=== PATIENT | female | born 1945 | race African-American/Black ===

== ENCOUNTER 2019-06-10 08:43 | Emergency (ER) | payer MEDICARE, MEDICAID ==
--- NOTE | 2019-06-10 09:29 | RAD ---
Exam:3 views right shoulder HISTORY: Pain. COMPARISON: None FINDINGS: There appears be irregularity involving the right humeral neck. Callus formation suggests a chronic process. Definite acute fracture is not appreciated. Glenohumeral joint space appears to be preserved. Scapula and ribs are unremarkable. The common clavicular joint spaces preserved. IMPRESSION: 1. Presumed chronic changes with remote injury to the right humeral neck. No obvious acute fracture. If there is concern, consider CT. Glenohumeral joint space appears to be preserved.
== END 2019-06-10 10:20 | disposition home or self-care (01) ==
LOC: ERS 08:43
DX: M75.101 Unspecified rotator cuff tear or rupture of right shoulder, not specified as traumatic (principal); E78.5 Hyperlipidemia, unspecified; I11.0 Hypertensive heart disease with heart failure; I50.9 Heart failure, unspecified; I25.2 Old myocardial infarction; Z79.82 Long term (current) use of aspirin; Z79.51 Long term (current) use of inhaled steroids; Z79.899 Other long term (current) drug therapy; Z79.891 Long term (current) use of opiate analgesic

== ENCOUNTER 2019-07-22 08:09 | Inpatient (IN) | payer MEDICARE, MEDICAID ==
--- NOTE | 2019-07-22 08:47 | RAD ---
XR Chest 1 View Portable HISTORY: Chest pain COMPARISON: 05/27/2014 FINDINGS: The heart is enlarged. There is mild prominence of the pulmonary vascularity. Mild patchy i nfiltrates are seen in the lung bases. No pneumothoraces or large effusions are identified.
[2019-07-22 08:50] LABS: #Eosinphils 0.2 thou/uL (0.0-0.7); #Lymphocytes 1.4 thou/uL (1.20-3.40); #Monocytes 0.4 thou/uL (0.11-0.59); #Neutrophils 2.6 thou/uL (1.40-6.50); %Basophils 0.9 % (0.0-1.0); %Eosinophils 5.1 % (0.0-10.0); %Lymphocytes 29.1 % (21.0-51.0); %Monocytes 9.4 % (0.0-10.0); %Neutrophils 55.5 % (42.0-75.0); Hemoglobin 9.2 g/dL (12.0-16.0); Mean Corpuscular HGB CONC 33.2 g/dL (32.0-36.0); Mean Corpuscular Hemoglobin 27.4 pg (27.0-31.0); Mean Corpuscular Volume 82.3 fL (78.0-98.0); Mean Platelet Volume 7.9 fL (7.4-10.4); Platelet Count 196 thou/uL (130-400); RBC Distribution Width 18.8 % (11.5-14.5); Red Blood Cell (RBC) Count 3.37 mill/uL (4.20-5.40); White Blood Cell (WBC) Count 4.7 thou/uL (4.8-10.8)
[2019-07-22] MEDS ORDERED: Famotidine/PF 20 mg/2ml Vial ONE (08:54)
[2019-07-22] MEDS ORDERED: diphenhydrAMINE 50 MG/ML VIAL ONE (08:54)
[2019-07-22] MEDS ORDERED: methylPREDNISolone Sod Succ 40 MG VIAL ONE (08:54)
[2019-07-22 09:15] LABS: ALT (SGPT) 30 U/L (8-55); AST (SGOT) 30 U/L (5-34); Albumin 3.1 g/dL (3.4-4.8); Alkaline Phosphatase 89 U/L (40-110); Anion Gap 15 mmol/L (10-20); BUN (Urea Nitrogen) 29 mg/dL (9.8-20.1); Bilirubin, Total 0.4 mg/dL (0.2-1.2); Calc. Creatinine Clearance 0 mL/min (70-130); Calcium 7.9 mg/dL (7.8-10.44); Carbon Dioxide 28 mmol/L (23-31); Chloride 99 mmol/L (98-107); Estimated GFR-MDRD 12; Globulin 2.7 g/dL (2.4-3.5); Glucose 127 mg/dL (83-110); Lipase 47 U/L (8-78); Magnesium 1.8 mg/dL (1.6-2.6); Potassium 3.9 mmol/L (3.5-5.1); Protein, Total 5.8 g/dL (6.0-8.3); Sodium 138 mmol/L (136-145)
[2019-07-22] MEDS ORDERED: Iopamidol 370 76% 100 ML VIAL ONE (09:27)
[2019-07-22] MEDS ORDERED: Furosemide 40 MG/4 ML VIAL ONE (11:05)
--- NOTE | 2019-07-22 11:43 | CT ---
CTA CHEST WITH CONTRAST: Multiple axial tomograms were obtained following a pulmonary angio protocol with multiplanar reconstr uction and 3D postprocessing. INDICATION: History of asthma. Shortness of breath. FINDINGS: Cardiomegaly with mild vascular congestion. There are small bilateral pleural effusions with bibasil ar infiltrates and/or atelectasis, more pronounced on the left. The pulmonary arteries are well opacified. There is no evidence of pulmonary embolus. Thoracic aort a is unremarkable with no evidence of dissection. Nonspecific mediastinal and hilar adenopathy. Small hepatic cyst on images through the upper abdomen. Nonspecific axillary adenopathy. Review of the bones shows diffuse osteopenia. There is severe compression deformity involving the L1 vertebra with retropulsion into the spinal canal producing what appears to be central canal stenosis at the T12-L1 disk level. This compression deformity was present on a CT dating back to 2012 and do es not appear significantly changed when comparison is made to the CT of 12/01/2012. IMPRESSION: 1. No evidence of pulmonary embolus. 2. Cardiomegaly with mild vascular congestion. 3. Small bilateral effusions. Bibasilar atelectasis and/or infiltrates more prominent in the left l teto base. 4. Mediastinal and hilar adenopathy. 5. Nonspecific axillary adenopathy. 6. Severe compression deformity with retropulsion of the L1 vertebra appears stable. POS: [facility]
[2019-07-22] MEDS ORDERED: Aspirin 325 MG TAB ONE (11:54)
[2019-07-22] MEDS ORDERED: Mometasone 100 MCG/Formoterol 5 MCG 120 PUFF INHALER INH PRN (12:03)
[2019-07-22] MEDS ORDERED: Acetaminophen 650 MG Suppository PR PRN (12:07)
[2019-07-22] MEDS ORDERED: Calcium Carbonate 500 MG ChewTAB PO PRN (12:07)
[2019-07-22] MEDS ORDERED: HYDROcodone/Acetaminophen 5/325 mg Tablet PO PRN (12:07)
[2019-07-22] MEDS ORDERED: Bisacodyl 10 MG SUPP PR PRN (12:07)
[2019-07-22] MEDS ORDERED: Benzonatate 100 MG CAP PO PRN (12:09)
[2019-07-22] MEDS ORDERED: diphenhydrAMINE 25 MG CAP PO PRN (12:09)
[2019-07-22] MEDS ORDERED: Melatonin 3 MG TAB PO PRN (12:09)
[2019-07-22] MEDS ORDERED: Labetalol HCl 100 MG/20 ML VIAL SLOW IVP PRN (12:09)
[2019-07-22] MEDS ORDERED: Docusate 100 MG CAP PO PRN (12:09)
[2019-07-22] MEDS ORDERED: Nitroglycerin 0.4 MG TAB (25 Tab Bottle) SL PRN (12:17)
[2019-07-22] MEDS ORDERED: Morphine 2 MG/ML SYRINGE SLOW IVP PRN (12:17)
[2019-07-22 16:05] VITALS: BMI 24.5
[2019-07-22 16:38] LABS: Troponin I 0.023 ng/mL (< 0.028)
[2019-07-22] MEDS: hydrALAZINE 25 MG TAB PO SCH ×2 (16:51→20:23)
[2019-07-22] MEDS: Heparin 5,000 UNITS/ML VIAL SC SCH ×2 (16:52→20:24)
--- NOTE | 2019-07-22 18:04 | PDOC.HHP ---
Hospitalist HPI - History of Present Illness Chest pain and shortness of breath History of Present Illness: 74-year-old female with past medical history of end-stage renal disease on hemodialysis, cardiomyopathy with ejection fraction 20-25%, asthma, GERD, hypertension, Hep C, CVA and history of feeding tube in 2012 presents with chest pain and shortness of breath. Patient states that today she was having chest pain which was worse with deep inspiration. Patient denies any diaphoresis , no palpitations. Subjective radiation of the pain to the shoulder. At this current time she does not have any chest pain or shortness of breath. She is breathing comfortably on room air. CT angiography of the chest was negative for pulmonary embolism. Patient is end-stage renal disease on hemodialysis and she is normally a Monday, , Monday schedule and she had hemodialysis this Monday. She states that on Saturdays session of HD she "had no fluid removed". Patient denies prior history of cardiac stents, though she states that "she might've had a mild heart attack" in the past. Patient's prior echocardiogram demonstrated ejection fraction of 20 to 25%, she does have pulmonary edema on chest imaging and elevated BNP level. With chest pain and shortness of breath with this patients history, cardiology was consulted for further recommendations. Nephrology consulted for dialysis management. Will repeat echocardiogram.Patient admitted to the medical unit with telemetry for close management. Hospitalist ROS - Review of Systems All other systems reviewed; all pertinent +/- noted in HPI/Subj - Medication Medications: Active Medications Generic Name Dose Route Start Last Admin Trade Name Freq PRN Reason Stop Dose Admin Heparin Sodium (Porcine) 5,000 units 07/22/19 15:00 07/22/19 16:52 Heparin SC 5,000 units TID CATHIE Administration Hydralazine HCl 25 mg 07/22/19 15:00 07/22/19 16:51 Apresoline PO 25 mg TID CATHIE Administration Hospitalist History - Past Medical History Source: patient, old records Cardiac: reports: CAD, CHF, HTN, Hyperlipidemia Pulmonary: reports: asthma, hypertension [facility]: reports: CVA - Past Surgical History Past Surgical History: reports: Hysterectomy, Other (PEG in 2013 for dysphagia after CVA since removed. Cardiac cath. HD access.) - Family History Family History: reports: hypertension - Social History Smoking Status: Never smoker Alcohol: reports: None Drugs: reports: none Living Situation: With Family Domestic Violence: Negative Activity level: independent ambulation - Exam General Appearance: NAD, awake alert Eye: PERRL ENT: normocephalic atraumatic, moist mucosa Neck: supple, symmetric, no lymphadenopathy Heart: no murmur, no gallops, no rubs Respiratory: no wheezes, no ronchi, normal chest expansion, no tachypnea, rales (Faint) Gastrointestinal: soft, non-tender, no guarding, no rigidity Extremities: no edema Extremities - other findings: Compression stalkings in place Skin: no rashes Neurological: cranial nerve grossly intact, no focal deficits Musculoskeletal: generalized weakness Psychiatric: normal affect, normal behavior, oriented to person, oriented to place Hospitalist Results - Labs Result Diagrams: 07/22/19 08:34 07/22/19 08:34 Lab results: WBC 4.7 thou/uL (4.8-10.8) L 07/22/19 08:34 Hgb 9.2 g/dL (12.0-16.0) L 07/22/19 08:34 Hct 27.8 % (36.0-47.0) L 07/22/19 08:34 MCV 82.3 fL (78.0-98.0) 07/22/19 08:34 Plt Count 196 thou/uL (130-400) 07/22/19 08:34 Neutrophils % 55.5 % (42.0-75.0) 07/22/19 08:34 Sodium 138 mmol/L (136-145) 07/22/19 08:34 Potassium 3.9 mmol/L (3.5-5.1) 07/22/19 08:34 Chloride 99 mmol/L (98-107) 07/22/19 08:34 Carbon Dioxide 28 mmol/L (23-31) 07/22/19 08:34 BUN 29 mg/dL (9.8-20.1) H 07/22/19 08:34 Creatinine 4.22 mg/dL (0.6-1.1) H 07/22/19 08:34 Glucose 127 mg/dL (83-110) H 07/22/19 08:34 Calcium 7.9 mg/dL (7.8-10.44) 07/22/19 08:34 Total Bilirubin 0.4 mg/dL (0.2-1.2) 07/22/19 08:34 AST 30 U/L (5-34) 07/22/19 08:34 ALT 30 U/L (8-55) 07/22/19 08:34 Alkaline Phosphatase 89 U/L (40-110) 07/22/19 08:34 Troponin I 0.023 ng/mL (< 0.028) 07/22/19 16:09 B-Natriuretic Peptide 1018.4 pg/mL (0-100) H 07/22/19 08:34 Serum Total Protein 5.8 g/dL (6.0-8.3) L 07/22/19 08:34 Albumin 3.1 g/dL (3.4-4.8) L 07/22/19 08:34 Lipase 47 U/L (8-78) 07/22/19 08:34 - Radiology Interpretation CT scan - chest Status: image reviewed by nd Hospitalist H&P A/P - Problem (1) Shortness of breath Code(s): R06.02 - SHORTNESS OF BREATH Status: Acute (2) Chest pain Code(s): R07.9 - CHEST PAIN, UNSPECIFIED Status: Acute (3) HTN (hypertension) Code(s): I10 - ESSENTIAL (PRIMARY) HYPERTENSION Status: Acute (4) Pulmonary edema Code(s): J81.1 - CHRONIC PULMONARY EDEMA Status: Acute (5) CHF (congestive heart failure) Code(s): I50.9 - HEART FAILURE, UNSPECIFIED Status: Acute (6) ESRD (end stage renal disease) Code(s): N18.6 - END STAGE RENAL DISEASE Status: Acute (7) CVA (cerebral vascular accident) Code(s): I63.9 - CEREBRAL INFARCTION, UNSPECIFIED Status: Acute (8) Asthma Code(s): J45.909 - UNSPECIFIED ASTHMA, UNCOMPLICATED Status: Acute (9) HLD (hyperlipidemia) Code(s): E78.5 - HYPERLIPIDEMIA, UNSPECIFIED Status: Acute (10) Hepatitis C Code(s): B19.20 - UNSPECIFIED VIRAL HEPATITIS C WITHOUT HEPATIC COMA Status: Acute (11) Acute on chronic systolic CHF (congestive heart failure) Code(s): I50.23 - ACUTE ON CHRONIC SYSTOLIC (CONGESTIVE) HEART FAILURE Status : Acute - Plan Plan: Plan: Admit to medical unit with telemetry cardiology consultation, recommendations appreciated nephrology consultation, recommendations appreciated morphine, oxygen, nitrates, aspirin Continuous telemetry to monitor for arrhythmia trend cardiac enzymes repeat echocardiogram may need additional sessions of hemodialysis to remove excess fluid, appears volume overload is at this time received Lasix in the emergency department per emergency department physician, reportedly still makes some urine with prior history of congestive heart failure with ejection fraction of 20 to 25% on our last records consider stress test versus cardiac catheterization if chest pain is persistent blood pressure control blood sugar control continue other home medications as able G.I. prophylaxis DVT prophylaxis
--- NOTE | 2019-07-22 18:24 | CON ---
DATE OF CONSULTATION: PRIMARY CARE DOCTOR: Dr. Ivey. PATIENT'S PRIMARY WATCH GUARD GATE: Dr. Edwards. PATIENT'S PRIMARY ARCHITECTURAL TECHNOLOGIST: Dr. Poole. REASON FOR CARDIOLOGY CONSULT: Shortness of breath and chest pain. HISTORY OF PRESENT ILLNESS: Ms. Harrell is a very pleasant 74-year-old female with a significant history of end-stage renal disease with hemodialysis on Tuesdays, , Saturdays; hypertension; hyperlipidemia; congestive heart failure; anemia. The patient presents to the emergency department at [facility] on june 29 for shortness of breath and the patient cannot remember what kind of procedure she has over there. The patient presents to the emergency department at [facility] in the [place], [place] today for pain in the upper epigastric area over the night last night. The pain increased with movement and deep breath. Also, the when patient had the pain in the epigastric area, the patient is also having shortness of breath. However, the patient denied dizziness, lightheadedness, or any other cardiac complaints. The patient had echocardiograms done in October 2016 with EF 25% to 30%, severe mitral valve regurgitation, and moderate pulmonary insufficiency, and moderate tricuspid regurgitation. Since then, she has not followed up with Dr. Guadalupe since this patient was doing well per patient. The patient had a cardiac catheterization in October 2012 with 20% stenosis in the proximal right coronary arteries with EF of 15% to 20%. MEDICAL HISTORY: Hypertension; end-stage renal disease with hemodialysis on Monday, , and Monday; congestive heart failure; nonischemic cardiomyopathy; anemia; hypertension; hyperlipidemia; and asthma. The patient has a history of hepatitis C, CVA in 2012, ulcerative colitis, history of ventricular fibrillation, history of C diff colitis in 2012. SURGICAL HISTORY: Hysterectomy in 1974, PEG tube placement in 2012 which was removed, cardiac catheterization in 2012 with 20% in LAD and RCA; humerus fracture; hemodialysis catheter placement on the right upper extremities; status post colonoscopy and upper endoscopy in 2012 and 2013. FAMILY HISTORY: The patient's sister had cardiac stent and she had diabetes. The patient does not remember the patient's parents medical history since they have when the patient was young. SOCIAL HISTORY: She is a . She has five children who are living well. She denies EtOH, tobacco, or illicit drug abuse. She walks 1.5 mile every day with her sister. She never missed hemodialysis schedule. ALLERGIES: SHE IS ALLERGIC TO SHELLFISH, IODINE, ONDANSETRON. REVIEW OF SYSTEMS: 12-point review of systems negative unless otherwise mentioned in the HPI. PHYSICAL EXAMINATION: VITAL SIGNS: Blood pressure 170/79, temperature 97.2, pulse is 79, respiratory rate 18, O2 saturation 96% on room air. GENERAL: The patient is alert and oriented x4, not in any acute distress except pain at the epigastric area with deep breath and movement. HEAD: Normocephalic, atraumatic. EYES: Extraocular muscle movement intact. She wears glasses for reading. ENT AND MOUTH: Oral and nasal mucosa moist without lesion. NECK: Supple. Normal range of motion. No JVD. No bruit or thrill at the carotid arteries area. RESPIRATORY: Clear to auscultate bilaterally. No wheezing, rales, or rhonchi noted, but diminished at the bases. CARDIOVASCULAR: Regular rate and rhythm. Normal S1, S2. There is no S3 or S4. No significant murmur, hives, or thrills noted. EXTREMITIES: 2+ pulses in bilateral upper and lower extremities. No edema in the lower extremities. She wears compression stocking SKIN: Warm and dry. No lesion, rash, or erythema noted. MUSCULOSKELETAL: The patient able to move all extremities. The patient denied claudication in the lower extremities. NEUROLOGIC: The patient is alert and oriented x4. Nonfocal. PSYCHIATRIC: The patient's mood is appropriate. LABORATORY DATA: WBC 4.7, hemoglobin 9.2, hematocrit platelets 196. Sodium 138, potassium 3.9, BUN 29, creatinine 4.22, glucose 127, magnesium 1.8. AST 30, ALT 30. Troponin is negative x2 and 0.023. BNP is 1018. ASSESSMENT AND PLAN: 1. Chest pain. The patient is complaining of pain in the upper epigastric area which worsened with deep breath and movement, which radiates under the right breast since like the patient's symptoms coming from musculoskeletal etiologies. She has been taking the Protonix for The patient might need another EGD for further GI evaluation. The patient's troponin level is negative and the patient's EKG does not show any ST-segment change or T-wave inversion. We would like to continue to monitor on the telemetry. 2. Respiratory distress, possibly this is coming from acute on chronic systolic heart failure, which was showing in 12/2012. The patient had another echocardiogram today and the result is pending at this moment. She is on carvedilol 25 mg twice a day. She is on hemodialysis. She is not on CONNIE inhibitor or ARB at this moment due to chronic kidney disease. 3. Hypertension. The first blood pressure in this floor is elevated. I would like to wait to adjust medications until she has another blood pressure reading. At this moment, she is on the beta kenyon, carvedilol 25 mg twice a day, hydralazine 25 mg 3 times a day. 4. Hyperlipidemia. She is on Lipitor 20 mg once a day. 5. History of coronary artery disease. A cardiac catheterization in 2012 showed 20% stenosis in LAD and RCA. The patient's cardiac enzymes were negative. The patient's EKGs have been normal. She is on the beta kenyon, aspirin, Lipitor. 6. History of stroke. 7. History of hepatitis C. 8. Anemia, possibly secondary to chronic kidney disease. The patient's hemoglobin level is stable since 2012. 9. Mild edema. She complained of edema in the lower extremities after she walks long distance which improves next day or after raising her bilateral lower extremities. We would like to request the patient to continue to wear RIGO hose at daytime and off at night. Thank you very much for Cardiology Service to participate in the care of this patient. We will follow along the patient's care team and make further recommendations as appropriate. Job ID: [id number]
[2019-07-22 19:32] LABS: Troponin I 0.014 ng/mL (< 0.028)
[2019-07-22] MEDS: Famotidine 20 MG TAB PO SCH (20:23)
[2019-07-22] MEDS: Atorvastatin Calcium 20 MG TAB PO SCH (20:23)
[2019-07-22] MEDS: Carvedilol 25 MG TAB PO SCH (20:24)
[2019-07-23 04:56] LABS: Anion Gap 16 mmol/L (10-20); BUN (Urea Nitrogen) 45 mg/dL (9.8-20.1); Calc. Creatinine Clearance 9 mL/min (70-130); Calcium 7.7 mg/dL (7.8-10.44); Carbon Dioxide 25 mmol/L (23-31); Chloride 100 mmol/L (98-107); Estimated GFR-MDRD 10; Glucose 119 mg/dL (83-110); Potassium 4.4 mmol/L (3.5-5.1); Sodium 137 mmol/L (136-145)
--- NOTE | 2019-07-23 07:14 | CON ---
DATE OF CONSULTATION: 07/22/2019 ADDENDUM: Please refer the notes already dictated by my nurse practitioner, Bertha Herron. Ms. Harrell is a very pleasant 74-year-old female, who was seen by Dr. Collins davis in 2012, I believe again in 2014. At that time, she was seen in 2012, she underwent a cardiac catheterization, which showed severe decrease in left ventricular systolic function, ejection fraction estimated at 15% to 20%. She had mild coronary artery disease with 20% left anterior descending artery mid stenosis. The right coronary artery had a 20% proximal stenosis. The left circumflex was free of any significant flow limiting disease. Apparently, she has not been followed up on a routine basis. She did perhaps see somebody at [facility] on one occasion, her primary physician was a [facility] physician in the past. She now has, I believe changed physicians again, and apparently this lady had been doing relatively well despite her cardiomyopathy, she was walking over a mile or 2 a day, and then sometime in mid May, she noted she became somewhat short of breath and was having problems breathing with pain, which she describes as being a hard pain up underneath the right breast area, radiating to the back to the shoulder area with deep inspiration. She has had no recent illnesses that she is aware of and no significant coughing. She also was seen here in the hospital about a month ago and was released saying that she had some shoulder discomfort, but she does not believe that was her diagnosis at that time and she did not feel comfortable and she then was seen at [facility], was told that she had pleurisy and was discharged on medication. She said the medications did help for a while, but then after she was given an injection, which most likely was steroids and then the pain returned. Her symptoms do sound to be certainly pleuritic in nature, when she takes a deep inspiration, she has pain, and she also says that she does have some shortness of breath now, but as of about a week ago, she was still able to walk about a mile without any significant problems. She does have a history also of hypertension and chronic renal insufficiency as well as hyperlipidemia and history of cardiomyopathy. She does not have an AICD implant. She has a repeat echocardiogram scheduled. This is still pending. We will look at the results of that before making further recommendations. Most likely, she will need to undergo at least consideration for an AICD. PHYSICAL EXAMINATION: GENERAL: Reveals an elderly female, who is in no acute distress at this time. VITAL SIGNS: Her blood pressure is elevated at 173/86, her heart rate is 79 and regular. She has a sinus rhythm. She is afebrile. Respiratory rate is about 18. HEENT: Showed the head to be normocephalic and atraumatic. Carotid pulses are present. I did not hear any bruits CHEST: Actually clear to auscultation. She has some minimal right basilar rales, otherwise was clear. CARDIOVASCULAR: Revealed a regular rate and rhythm. I did not hear any significant murmurs, heaves, thrills, bruits, or rubs. She did have a soft systolic murmur at the apex, most likely due to some mild mitral valve regurgitation. ABDOMEN: Soft and nontender. Positive bowel sounds are present. EXTREMITIES: Showed no clubbing or cyanosis. She had minimal ankle edema. Pedal pulses are difficult to palpate. NEUROLOGIC: She appears to be grossly intact. LABORATORY DATA: Shows a hemoglobin of 9.2, WBC was 4.7, and platelet count was 196,000. Sodium was 138 with potassium of 3.9, BUN was 29 with a creatinine of 4.22, and blood sugar was 127. Her BNP was elevated at 1018. Her troponin-I is negative for myocardial infarction. Her EKG shows a sinus rhythm with no acute changes. She did have decreased R-wave progression in V1 and V2, but no significant ST-segment elevation was noted and no other significant abnormalities. She has some nonspecific flattening of the T-waves, but otherwise nonsignificant EKG. IMPRESSION: 1. Elderly female with chest pain, which sounds to be pleuritic in nature, but she does have a history of cardiomyopathy with elevated BNP. We will await the results of the echocardiogram prior to making further recommendations. 2. History of cardiomyopathy. Again, we will await the results of the echocardiogram. Her medications prior to admission included Coreg and aspirin, as far as cardiovascular medicines are concerned, atorvastatin. She was also taking amlodipine. She was not on CONNIE inhibitor, but she does have chronic renal insufficiency. 3. Chronic kidney disease. I am uncertain as to who her ball assembler is, but if she does not have one, she should be referred for ball assembler, but again depending on the results of the echocardiogram, if she has a low cardiac output, this may be the reason for her chronic kidney disease with low cardiac output. At this time, we will evaluate the echocardiogram. Further recommendations will be by Dr. Guadalupe when he visits with the patient tomorrow. The patient has requested that she follow up with him and we will discuss this case with Dr. Guadalupe. At this time, she appears to be stable from a cardiac standpoint except she does have a cardiomyopathy and has somewhat atypical chest pain, which does appear to be pleuritic in nature, as she does have pain on inspiration. Job ID: [id number]
--- NOTE | 2019-07-23 09:03 | RAD ---
CHEST 1 VIEW: DATE: 07/23/2019. TIME: 8:31 AM. HISTORY: Shortness of breath. COMPARISON: Previous day. FINDINGS/IMPRESSION: The heart is enlarged. The aorta is tortuous. There are bilateral small pleural effusions with huong cent infiltrate/atelectatic changes. No pneumothoraces are seen. There is mild prominence of the pu lmonary vascularity. POS: [facility]
[2019-07-23] MEDS: Heparin 5,000 UNITS/ML VIAL SC SCH ×3 (10:18→20:42)
[2019-07-23] MEDS: Aspirin 81 mg Enteric Coated Tablet PO SCH (10:18)
[2019-07-23] MEDS: hydrALAZINE 25 MG TAB PO SCH ×3 (10:19→20:41)
[2019-07-23] MEDS: Carvedilol 25 MG TAB PO SCH ×2 (10:19→20:41)
--- NOTE | 2019-07-23 13:07 | PDOC.HOSPP ---
- Subjective Subjective: Seen and examined this a.m. She tells me she is feeling worse. More short of breath. She is on low-flow nasal cannula and saturating well. Chest x-ray was ordered by myself and interpreted with pulmonary vascular congestion. Small pleural effusion's. She appears volume overload it, nephrology is on the case for hemodialysis. Time was given for questions, all answered in detail. - Objective Vital Signs & Weight: Vital Signs (12 hours) Temp Pulse Resp BP Pulse Ox 07/23/19 11:18 97.5 F L 71 20 123/61 97 07/23/19 10:41 82 20 99 07/23/19 10:19 85 07/23/19 07:53 98.4 F 88 22 H 167/78 H 99 07/23/19 07:45 99 07/23/19 03:46 98.7 F 82 16 157/74 H 99 Weight Weight 128 lb 11.999 oz I&O: 07/22/19 07/23/19 07/24/19 06:59 06:59 06:59 Intake Total 480 Output Total 200 Balance 280 Result Diagrams: 07/22/19 08:34 07/23/19 04:18 Radiology Reviewed by me: Yes Hospitalist ROS - Review of Systems All other systems reviewed; all pertinent +/- noted in HPI/Subj - Medication Medications: Active Medications Generic Name Dose Route Start Last Admin Trade Name Freq PRN Reason Stop Dose Admin Albuterol/Ipratropium 3 ml 07/22/19 12:09 07/23/19 10:41 Duoneb NEB 3 ml [id number] PRN Administration SOB &/or Wheezing Aspirin 81 mg 07/23/19 09:00 07/23/19 10:18 Ecotrin PO 81 mg DAILY CATHIE Administration Atorvastatin Calcium 20 mg 07/22/19 21:00 07/22/19 20:23 Lipitor PO 20 mg HS CATHIE Administration Carvedilol 25 mg 07/22/19 21:00 07/23/19 10:19 Coreg PO 25 mg BID CATHIE Administration Famotidine 20 mg 07/22/19 21:00 07/22/19 20:23 Pepcid PO 20 mg QPM CATHIE Administration Heparin Sodium (Porcine) 5,000 units 07/22/19 15:00 07/23/19 10:18 Heparin SC 5,000 units TID CATHIE Administration Hydralazine HCl 25 mg 07/22/19 15:00 07/23/19 10:19 Apresoline PO 25 mg TID CATHIE Administration Sodium Chloride 10 ml 07/22/19 21:00 07/23/19 10:19 Flush - Normal Saline IVF 10 ml Q12HR CATHIE Administration - Exam General Appearance: NAD, awake alert Eye: anicteric sclera ENT: normocephalic atraumatic, moist mucosa Neck: supple, symmetric, no lymphadenopathy Heart: no murmur, no gallops, no rubs Respiratory: no wheezes, no ronchi, normal chest expansion, no tachypnea, rales Gastrointestinal: soft, non-tender, no guarding, no rigidity Extremities: 1+ LE edema (wears compression stalkings in the day, currently off) Skin: no lesions, no rashes Neurological: cranial nerve grossly intact, no focal deficits Musculoskeletal: generalized weakness Psychiatric: normal behavior, A&O x 3 Hosp A/P (1) Shortness of breath Code(s): R06.02 - SHORTNESS OF BREATH Status: Acute (2) Chest pain Code(s): R07.9 - CHEST PAIN, UNSPECIFIED Status: Acute (3) HTN (hypertension) Code(s): I10 - ESSENTIAL (PRIMARY) HYPERTENSION Status: Acute (4) Pulmonary edema Code(s): J81.1 - CHRONIC PULMONARY EDEMA Status: Acute (5) CHF (congestive heart failure) Code(s): I50.9 - HEART FAILURE, UNSPECIFIED Status: Acute (6) ESRD (end stage renal disease) Code(s): N18.6 - END STAGE RENAL DISEASE Status: Acute (7) CVA (cerebral vascular accident) Code(s): I63.9 - CEREBRAL INFARCTION, UNSPECIFIED Status: Acute (8) Asthma Code(s): J45.909 - UNSPECIFIED ASTHMA, UNCOMPLICATED Status: Acute (9) HLD (hyperlipidemia) Code(s): E78.5 - HYPERLIPIDEMIA, UNSPECIFIED Status: Acute (10) Hepatitis C Code(s): B19.20 - UNSPECIFIED VIRAL HEPATITIS C WITHOUT HEPATIC COMA Status: Acute (11) Acute on chronic systolic CHF (congestive heart failure) Code(s): I50.23 - ACUTE ON CHRONIC SYSTOLIC (CONGESTIVE) HEART FAILURE Status : Acute - Plan Plan: medical unit with telemetry cardiology consultation, recommendations appreciated nephrology consultation, recommendations appreciated morphing, oxygen, nitrates, aspirin continuous telemetry to monitor for arrhythmia cardiac enzymes negative repeat echocardiogram with improved ejection fraction of 55 to 60%, this is significantly improved from prior evaluations consider stress test as inpatient vs outpatient per cardiology hemodialysis per nephrology chest x-ray reviewed with pulmonary vascular congestion and small pleural effusion's blood pressure control blood sugar control continue other home medications as able G.I. prophylaxis DVT prophylaxis
[2019-07-23] MEDS: Atorvastatin Calcium 20 MG TAB PO SCH (20:41)
[2019-07-23] MEDS: Famotidine 20 MG TAB PO SCH (20:41)
[2019-07-24] MEDS ORDERED: Regadenoson 0.4 MG/5 ML SYRINGE ONE (09:52)
[2019-07-24] MEDS: Aspirin 81 mg Enteric Coated Tablet PO SCH (12:18)
[2019-07-24] MEDS: Carvedilol 25 MG TAB PO SCH (12:18)
[2019-07-24] MEDS: Heparin 5,000 UNITS/ML VIAL SC SCH ×2 (12:19→16:25)
[2019-07-24] MEDS: hydrALAZINE 25 MG TAB PO SCH ×2 (12:19→16:26)
--- NOTE | 2019-07-24 13:48 | NM ---
Radionucleotide stress and rest myocardial perfusion scan with CT attenuation correction and SPECT im aging HISTORY: Chest pain. FINDINGS: Lexiscan protocol. There is homogeneous uptake of radiotracer throughout the left ventricul ar myocardium. No focal perfusion defect or reversibility are apparent. QGS analysis of gated SPECT images shows global diminished motion of the left ventricular myocardium, most pronounced at the lateral wall. Ejection fraction calculated at 49%. IMPRESSION : No scintigraphic evidence of ischemia. Borderline ejection fraction (49%). Diminished motion most pronounced at the lateral wall. Cause is n ot evident.
[2019-07-24 15:56] VITALS: BP 128/60; TEMP 98.9
--- NOTE | 2019-07-25 10:25 | DIS ---
DATE OF ADMISSION: 07/22/2019 DATE OF DISCHARGE: 07/24/2019 DISCHARGE DISPOSITION: Home. FOLLOWUP: 1. Follow up with primary care physician, Dr. Bridger Ivey in 1 week. 2. Follow up with Cardiology, Dr. Willis Guadalupe as scheduled. ALLERGIES: THE PATIENT IS ALLERGIC TO IODINE AND ZOFRAN. HISTORY OF PRESENT ILLNESS: The patient was seen and examined on the day of discharge. Denies any new complaints. No chest pain, shortness of breath, palpitations reported. BRIEF HOSPITAL COURSE: The patient is a 74-year-old female with end-stage renal disease, on hemodialysis; hypertension, hyperlipidemia, and congestive heart failure, presented to the emergency room with shortness of breath along with chest discomfort July 22, 2019. She tried using a nebulizer multiple times with some relief. The chest pain was right-sided, radiating to her back. No fever, chills reported. At times, the pain was getting worse with deep breathing. A CT angiogram of the chest in the emergency room was negative for pulmonary embolism. It showed some mild vascular congestion along with small bilateral effusions and mediastinal and hilar adenopathy. She was evaluated by Cardiology and Nephrology. Her condition gradually improved with dialysis. Echocardiogram showed ejection fraction of 50% to 55% with diastolic dysfunction, moderate to severe dilatation of the left atrium, mild to moderate mitral regurgitation, and mild tricuspid regurgitation. She has been cleared by consultants for discharge. No changes in her medications were made. FINAL DIAGNOSES: 1. Acute on chronic systolic/diastolic heart failure exacerbation, present on admission number. 2. Atypical chest pain, acute coronary syndrome ruled out. The patient underwent a Cardiolite stress test on the day of discharge, that was negative for reversible ischemia. Ejection fraction was 49%. 3. Coronary artery disease. 4. Hypertension. 5. Hyperlipidemia. 6. Chronic hepatitis C. 7. History of cerebrovascular accident. 8. Anemia, probably secondary to renal insufficiency. The patient understands the above plan of care. Job ID: [id number]
== END 2019-07-24 18:20 | disposition home or self-care (01) | DRG 291 ==
LOC: ERS 08:09 → 2NO 14:19
PROVIDERS: ADMIT Internal Medicine; ATTEND Internal Medicine
PROC: 5A1D70Z Performance of Urinary Filtration, Intermittent, Less than 6 Hours Per Day (ICD-10-PCS; principal; 2019-07-23)
DX: I13.2 Hypertensive heart and chronic kidney disease with heart failure and with stage 5 chronic kidney disease, or end stage renal disease (principal); N18.6 End stage renal disease; I50.43 Acute on chronic combined systolic (congestive) and diastolic (congestive) heart failure; E78.5 Hyperlipidemia, unspecified; I42.8 Other cardiomyopathies; J45.909 Unspecified asthma, uncomplicated; D63.1 Anemia in chronic kidney disease; I25.10 Atherosclerotic heart disease of native coronary artery without angina pectoris; K21.9 Gastro-esophageal reflux disease without esophagitis; R79.89 Other specified abnormal findings of blood chemistry; B18.2 Chronic viral hepatitis C; I25.2 Old myocardial infarction; Z95.5 Presence of coronary angioplasty implant and graft; Z91.013 Allergy to seafood; Z90.49 Acquired absence of other specified parts of digestive tract; Z99.2 Dependence on renal dialysis; Z90.710 Acquired absence of both cervix and uterus; Z88.8 Allergy status to other drugs, medicaments and biological substances; Z91.041 Radiographic dye allergy status; Z86.73 Personal history of transient ischemic attack (TIA), and cerebral infarction without residual deficits
CPT/HCPCS: 36415; 36416; 71045; 71275; 78452; 80048; 80053; 83690; 83735; 83880; 84484; 85025; 90935; 93005; 93017; 93306; 93798; 94640; 96374; 96375; A9500; G0257; J1200; J1644; J1940; J2785; J2920; J7620; Q9967; S0028

== ENCOUNTER 2019-08-08 06:34 | Emergency (ER) | payer MEDICARE, MEDICAID ==
[2019-08-08 07:41] LABS: #Eosinphils 0.1 thou/uL (0.0-0.7); #Lymphocytes 1.5 thou/uL (1.20-3.40); #Monocytes 0.5 thou/uL (0.11-0.59); #Neutrophils 2.3 thou/uL (1.40-6.50); %Basophils 0.3 % (0.0-1.0); %Eosinophils 3.2 % (0.0-10.0); %Lymphocytes 33.6 % (21.0-51.0); %Monocytes 11.7 % (0.0-10.0); %Neutrophils 51.2 % (42.0-75.0); Hemoglobin 7.8 g/dL (12.0-16.0); Mean Corpuscular HGB CONC 30.9 g/dL (32.0-36.0); Mean Corpuscular Hemoglobin 25.9 pg (27.0-31.0); Mean Corpuscular Volume 83.8 fL (78.0-98.0); Mean Platelet Volume 7.7 fL (7.4-10.4); Platelet Count 185 thou/uL (130-400); RBC Distribution Width 18.5 % (11.5-14.5); White Blood Cell (WBC) Count 4.5 thou/uL (4.8-10.8)
[2019-08-08] MEDS ORDERED: Nitroglycerin 2% Ointment 1 INCH/1 GM Packet ONE ×2 (07:47→08:14)
[2019-08-08 08:04] LABS: ALT (SGPT) 25 U/L (8-55); AST (SGOT) 30 U/L (5-34); Alkaline Phosphatase 83 U/L (40-110); Anion Gap 15 mmol/L (10-20); BUN (Urea Nitrogen) 35 mg/dL (9.8-20.1); Bilirubin, Total 0.3 mg/dL (0.2-1.2); Calc. Creatinine Clearance 0 mL/min (70-130); Calcium 8.6 mg/dL (7.8-10.44); Carbon Dioxide 27 mmol/L (23-31); Chloride 103 mmol/L (98-107); Estimated GFR-MDRD 11; Globulin 2.6 g/dL (2.4-3.5); Glucose 95 mg/dL (83-110); Potassium 4.2 mmol/L (3.5-5.1); Protein, Total 5.6 g/dL (6.0-8.3); Sodium 141 mmol/L (136-145)
[2019-08-08 08:05] LABS: Phosphorus 3.6 mg/dL (2.3-4.7)
--- NOTE | 2019-08-08 08:18 | RAD ---
RADIOGRAPH CHEST 1 VIEW: Date: 08/08/2019. Time: 7:19 a.m. HISTORY: A 74-year-old female with dyspnea. COMPARISON: 07/23/2019. FINDINGS: Comparison is somewhat difficult because the current positioning is lordotic while the previous was n ot. Again noted is the pulmonary venous engorgement. There is magnification of the cardiac shadow. There is probably also true cardiomegaly. There are small bilateral pleural effusions, with adjacen t small airspace opacities at the lung bases adjacent to the pleural effusions, which could represent passive atelectasis, although pneumonia is not excluded. No pneumothorax. Probably no major interv al change. IMPRESSION: 1. Evidence for at least mild congestive heart failure: cardiomegaly, small bilateral pleural effusi ons, and pulmonary venous congestion. 2. Bibasilar airspace opacities. 3. Probably no significant interval change. JN [] POS: JIN
== END 2019-08-08 09:25 | disposition home or self-care (01) ==
LOC: ERS 06:34
DX: R09.89 Other specified symptoms and signs involving the circulatory and respiratory systems (principal); I13.2 Hypertensive heart and chronic kidney disease with heart failure and with stage 5 chronic kidney disease, or end stage renal disease; I50.9 Heart failure, unspecified; N18.6 End stage renal disease; J45.909 Unspecified asthma, uncomplicated; I25.2 Old myocardial infarction; E78.5 Hyperlipidemia, unspecified; Z79.82 Long term (current) use of aspirin; Z99.2 Dependence on renal dialysis
CPT/HCPCS: 36415; 71045; 80053; 83735; 83880; 84100; 84484; 85025; 93005

== ENCOUNTER 2020-03-24 08:46 | Emergency (ER) | payer MEDICARE, OTHER ==
[2020-03-24] MEDS ORDERED: Albuterol 200 PUFF (6.7GM INHALER) ONE (09:01)
[2020-03-24] MEDS ORDERED: predniSONE 20 MG TAB ONE (09:02)
[2020-03-24 09:31] LABS: #Eosinphils 0.1 thou/uL (0.0-0.7); #Lymphocytes 1.1 thou/uL (1.20-3.40); #Monocytes 0.4 thou/uL (0.11-0.59); #Neutrophils 2.1 thou/uL (1.40-6.50); %Basophils 1.2 % (0.0-1.0); %Eosinophils 2.5 % (0.0-10.0); %Lymphocytes 29.5 % (21.0-51.0); %Monocytes 9.9 % (0.0-10.0); Hemoglobin 9.9 g/dL (12.0-16.0); Mean Corpuscular HGB CONC 31.6 g/dL (32.0-36.0); Mean Corpuscular Hemoglobin 27.4 pg (27.0-31.0); Mean Corpuscular Volume 86.9 fL (78.0-98.0); Mean Platelet Volume 7.8 fL (7.4-10.4); Platelet Count 161 thou/uL (130-400); RBC Distribution Width 17.2 % (11.5-14.5); White Blood Cell (WBC) Count 3.7 thou/uL (4.8-10.8)
--- NOTE | 2020-03-24 09:33 | RAD ---
EXAM: Chest one view: HISTORY: Dyspnea COMPARISON: 08/08/2019 FINDINGS: Heart size: Enlarged but stable Lungs: Clear of acute process. No evidence for confluent lobar pneumonia, significant pleural effusion, acute edema, or pneumothorax , or other significant acute process. IMPRESSION: No significant acute intrathoracic disease.
[2020-03-24 09:47] LABS: ALT (SGPT) 19 U/L (8-55); AST (SGOT) 27 U/L (5-34); Albumin 3.5 g/dL (3.4-4.8); Alkaline Phosphatase 112 U/L (40-110); Anion Gap 19 mmol/L (10-20); BUN (Urea Nitrogen) 49 mg/dL (9.8-20.1); Bilirubin, Total 0.4 mg/dL (0.2-1.2); Calc. Creatinine Clearance 0 mL/min (70-130); Calcium 8.3 mg/dL (7.8-10.44); Carbon Dioxide 25 mmol/L (23-31); Chloride 101 mmol/L (98-107); Estimated GFR-MDRD 8; Globulin 3.2 g/dL (2.4-3.5); Glucose 139 mg/dL (83-110); Potassium 4.3 mmol/L (3.5-5.1); Protein, Total 6.7 g/dL (6.0-8.3); Sodium 141 mmol/L (136-145)
== END 2020-03-24 11:05 | disposition home or self-care (01) ==
LOC: ERS 08:46
DX: J44.1 Chronic obstructive pulmonary disease with (acute) exacerbation (principal); I11.0 Hypertensive heart disease with heart failure; I50.9 Heart failure, unspecified; E78.5 Hyperlipidemia, unspecified; I21.9 Acute myocardial infarction, unspecified; Z79.82 Long term (current) use of aspirin; Z79.899 Other long term (current) drug therapy
CPT/HCPCS: 36415; 71045; 80053; 85025; 93005; J7512

== ENCOUNTER 2020-04-09 06:49 | Inpatient (IN) | payer MEDICARE, MEDICAID ==
[2020-04-09] MEDS ORDERED: methylPREDNISolone Sod Succ/PF 125 MG/2 ML VIAL ONE (07:41)
[2020-04-09 07:54] LABS: #Lymphocytes 0.6 thou/uL (1.20-3.40); #Monocytes 0.3 thou/uL (0.11-0.59); #Neutrophils 6.9 thou/uL (1.40-6.50); %Basophils 0.5 % (0.0-1.0); %Eosinophils 0.5 % (0.0-10.0); %Monocytes 3.9 % (0.0-10.0); %Neutrophils 87.2 % (42.0-75.0); Hemoglobin 9.2 g/dL (12.0-16.0); Mean Corpuscular HGB CONC 32.4 g/dL (32.0-36.0); Mean Corpuscular Hemoglobin 27.8 pg (27.0-31.0); Mean Corpuscular Volume 85.7 fL (78.0-98.0); Mean Platelet Volume 7.8 fL (7.4-10.4); Platelet Count 164 thou/uL (130-400); RBC Distribution Width 17.9 % (11.5-14.5); White Blood Cell (WBC) Count 7.9 thou/uL (4.8-10.8)
[2020-04-09] MEDS ORDERED: Albuterol 200 PUFF (6.7GM INHALER) ONE (07:59)
--- NOTE | 2020-04-09 08:15 | RAD ---
EXAM: XR Chest 1 View Portable PROVIDED CLINICAL HISTORY: Respiratory distress COMPARISON: 03/24/2020 FINDINGS: Cardiac silhouette appears enlarged, which may be least partially on the basis of portable technique. Vascular calcification involves the aortic arch. Blunting of the left costophrenic angle may reflect pleural fluid. Prominence of the pulmonary interstitium is similar to prior. Patchy right upp er lung zone airspace disease is suspected. There is no evidence for pneumothorax. IMPRESSION: 1. Patchy right upper lung zone airspace disease is suspected, which may reflect pneumonia. 2. Blunting of left costophrenic angle, which may reflect pleural fluid.
[2020-04-09 08:17] LABS: ALT (SGPT) 24 U/L (8-55); AST (SGOT) 25 U/L (5-34); Albumin 3.5 g/dL (3.4-4.8); Alkaline Phosphatase 106 U/L (40-110); Anion Gap 19 mmol/L (10-20); BUN (Urea Nitrogen) 38 mg/dL (9.8-20.1); Bilirubin, Total 0.5 mg/dL (0.2-1.2); Calc. Creatinine Clearance 0 mL/min (70-130); Calcium 9.2 mg/dL (7.8-10.44); Carbon Dioxide 26 mmol/L (23-31); Chloride 100 mmol/L (98-107); Globulin 3.3 g/dL (2.4-3.5); Glucose 178 mg/dL (83-110); Potassium 4.5 mmol/L (3.5-5.1); Protein, Total 6.8 g/dL (6.0-8.3); Sodium 140 mmol/L (136-145)
[2020-04-09 08:38] LABS: CKMB 1.8 ng/mL (0-6.6)
[2020-04-09] MEDS ORDERED: cefTRIAXone\\ROCEPHIN 2 GM VIAL ONE (10:49)
--- NOTE | 2020-04-09 11:07 | PDOC.HHP ---
Hospitalist HPI - History of Present Illness History of Present Illness: ADMISSION DATE: 04/09/2020 TIME OF ASSESSMENT: 1000 AM PRIMARY CARE PHYSICIAN: None CHIEF COMPLAINT: Generalized weakness and shortness of breath. HPI: This is a 75-year-old woman with a known history of COPD and asthma who presents to the emergency department with complaints of progressively worsening shortness of breath and generalized weakness. She came in to the emergency department with shortness of breath and wheezing on 03/24/2020 and had a chest x- ray done at that time which showed no acute changes. She had run out of her nebulizers and albuterol inhaler. She is cleared for discharge home and given a prescription for both. The patient states that her symptoms improved until 1 week ago when they began to recur and have progressively worsened since. She reports having a persistent cough that is productive for white sputum. Reports discomfort occasionally when coughing in the lower sternal area which wraps around towards the left side of her chest. Patient states it feels like muscular pain. Otherwise she does not experience any chest pain or palpitations. Denies any lower extremity swelling or edema. Denies any hemoptysis. No fever chills or sweats. Patient states her prompted her to come in today was how weak she has gotten. She is normally fully independent and uses a cane for walking but recently has required help from her grandson with getting dressed. ROS: Patient reports having a fairly good appetite. No nausea or vomiting. No abdominal pain. No urinary symptoms. She still does make urine despite being on dialysis 3 times a week. All other review of systems apart from what is mentioned above in HPI are negative. ED COURSE: In the emergency department the patient underwent a repeat chest x- ray which has demonstrated patchy right upper lung zone airspace disease with suspicion for pneumonia. Blunting of left costophrenic angle felt to possibly represent pleural fluid. Lab studies done showed a white count of 7.9, hemoglobin 9.2, hematocrit 20.3, platelets 164, neutrophils 87.2%. BUN 38, creatinine 5.37, GFR 9. Renal function is essentially stable. Lactic acid 2.1. Troponin 0 0.059. LFTs normal. EKG done in the emergency department showed a normal sinus rhythm with a heart rate of 93. No ST changes or T wave abnormalities. She was started on IV antibiotics for pneumonia. She has been given Rocephin and azithromycin. Also given 125 mg of methylprednisolone IV and 4 puffs of Proventil. 500 mL of normal saline as well. PAST MEDICAL HISTORY: 1. COPD 2. Asthma 3. End-stage renal disease on hemodialysis 4. Cardiomyopathy with last echo done 07/22/2019 which showed EF of 50 to 55%. Left atrium moderately to severely dilated. Mildly enlarged right atrium size. Mild to moderate mitral regurgitation, mild tricuspid regurgitation and trace pulmonic regurgitation. 5. Hypertension 6. GERD 7. History of hepatitis C 8. CVA 9. Hyperlipidemia 10. CAD PAST SURGICAL HISTORY: 1. Hysterectomy 2. PEG tube placement in 2012 for dysphagia after CVA, has since been removed 3. Cardiac catheterization 4. Hemodialysis access. SOCIAL HISTORY: Patient lives alone and son has come to stay with her. Normally walks with the help of a cane. Denies any tobacco use or alcohol consumption. FAMILY HISTORY: Noncontributory ALLERGIES: Ondansetron and iodine CURRENT MEDICATIONS: 1. Amlodipine 10 mg p.o. daily 2. Aspirin 81 mg p.o. daily 3. Atorvastatin 20 mg p.o. 4. Carvedilol 25 mg p.o. twice daily 5. Lomotil twice daily 6. DuoNeb as needed 7. Albuterol sulfate Hospitalist History - Past Surgical History Past Surgical History: reports: Hysterectomy, Other (PEG in 2012 for dysphagia after CVA since removed. Cardiac cath. HD access.) - Social History Alcohol: reports: None Drugs: reports: none - Exam General Appearance: NAD, awake alert General - other findings: VS: Temp 97.9, HR 95, BP 166/80, RR 18, O2 sats 100% on room air. Eye: PERRL, anicteric sclera ENT: normocephalic atraumatic, no oropharyngeal lesions, moist mucosa Neck: supple, symmetric, no lymphadenopathy Heart: RRR, no murmur, no gallops, no rubs, normal peripheral pulses Respiratory: CTAB, no wheezes, no rales, no ronchi, normal chest expansion, no tachypnea Gastrointestinal: soft, non-tender, non-distended, normal bowel sounds Extremities: no edema Skin: normal turgor, no lesions, no rashes Neurological: cranial nerve grossly intact, normal sensation to touch, no weakness Musculoskeletal: normal tone, normal strength, no muscle wasting Psychiatric: normal affect, normal behavior, A&O x 3 Hospitalist Results - Labs Result Diagrams: 04/09/20 07:45 04/09/20 07:45 Lab results: WBC 7.9 thou/uL (4.8-10.8) 04/09/20 07:45 Hgb 9.2 g/dL (12.0-16.0) L 04/09/20 07:45 Hct 28.3 % (36.0-47.0) L 04/09/20 07:45 MCV 85.7 fL (78.0-98.0) 04/09/20 07:45 Plt Count 164 thou/uL (130-400) 04/09/20 07:45 Neutrophils % 87.2 % (42.0-75.0) H 04/09/20 07:45 Sodium 140 mmol/L (136-145) 04/09/20 07:45 Potassium 4.5 mmol/L (3.5-5.1) 04/09/20 07:45 Chloride 100 mmol/L (98-107) 04/09/20 07:45 Carbon Dioxide 26 mmol/L (23-31) 04/09/20 07:45 BUN 38 mg/dL (9.8-20.1) H 04/09/20 07:45 Creatinine 5.37 mg/dL (0.6-1.1) H 04/09/20 07:45 Glucose 178 mg/dL (83-110) H 04/09/20 07:45 Calcium 9.2 mg/dL (7.8-10.44) 04/09/20 07:45 Total Bilirubin 0.5 mg/dL (0.2-1.2) 04/09/20 07:45 AST 25 U/L (5-34) 04/09/20 07:45 ALT 24 U/L (8-55) 04/09/20 07:45 Alkaline Phosphatase 106 U/L (40-110) 04/09/20 07:45 CK-MB (CK-2) 1.8 ng/mL (0-6.6) 04/09/20 07:45 Troponin I 0.059 ng/mL (< 0.028) H 04/09/20 07:45 Serum Total Protein 6.8 g/dL (6.0-8.3) 04/09/20 07:45 Albumin 3.5 g/dL (3.4-4.8) 04/09/20 07:45 - Radiology Interpretation Chest x-ray Status: report reviewed by me Hospitalist H&P A/P - Problem (1) Shortness of breath Code(s): R06.02 - SHORTNESS OF BREATH Status: Acute Assessment and Plan: Pneumonia suspected. Monitor O2 sats Check BNP given history of cardiomyopaty/CHF Obtain CT Chest, non-contrast. Check D-Dimer, if elevated will obtain venous doppler Awaiting COVID test results Continue IV antibiotics and steroids Continue inhalers, resume nebs if D-Dimer negative. Awaiting COVID testing. Check Respiratory panel (including Flu A/B) (2) Elevated troponin I level Code(s): R77.8 - OTHER SPECIFIED ABNORMALITIES OF PLASMA PROTEINS Status: Ac [place] Assessment and Plan: No chest pain at present Continue to trend troponins (3) Generalized weakness Code(s): R53.1 - WEAKNESS Status: Chronic Assessment and Plan: PT/OT consulted (4) COPD (chronic obstructive pulmonary disease) Status: Chronic Assessment and Plan: Continue inhalers and steroids (5) Chronic CHF Code(s): I50.9 - HEART FAILURE, UNSPECIFIED Status: Chronic Assessment and Plan: Stable, no signs of fluid overload (6) ESRD (end stage renal disease) Code(s): N18.6 - END STAGE RENAL DISEASE Status: Chronic Assessment and Plan: Consult Nephrology Dialysis: , Th, Sat Monitor renal function (7) HLD (hyperlipidemia) Code(s): E78.5 - HYPERLIPIDEMIA, UNSPECIFIED Status: Chronic Assessment and Plan: Resume statin (8) HTN (hypertension) Code(s): I10 - ESSENTIAL (PRIMARY) HYPERTENSION Status: Chronic Assessment and Plan: Resume anti-hypertensives once verified Monitor BP - Plan Plan: GI prophylaxis with Famotidine DVT Prophylaxis with Enoxaparin
[2020-04-09] MEDS ORDERED: Azithromycin 500 MG VIAL ONE (11:13)
[2020-04-09 11:23] LABS: SARS-CoV-2 NAA Rapid Test Not Detected (NotDetected)
[2020-04-09] MEDS ORDERED: Acetaminophen 650 MG Suppository PR PRN (11:30)
[2020-04-09] MEDS ORDERED: Acetaminophen 325 MG TAB PO PRN (11:30)
[2020-04-09 12:48] LABS: CKMB 1.2 ng/mL (0-6.6)
[2020-04-09 14:44] LABS: Lactic Acid 1.9 mmol/L (0.5-2.2)
[2020-04-09 16:08] VITALS: BMI 24.3
[2020-04-09] MEDS: Heparin 5,000 UNITS/ML VIAL SC SCH ×2 (16:13→20:05)
[2020-04-09] MEDS ORDERED: hydrALAZINE 20 MG/ML VIAL SLOW IVP PRN (16:14)
[2020-04-09] MEDS ORDERED: Albuterol Sulfate 2.5 mg/3 ml Neb NEB PRN (17:53)
[2020-04-09] MEDS: methylPREDNISolone Sod Succ 40 MG VIAL IVP SCH ×2 (19:04→23:35)
--- NOTE | 2020-04-09 19:24 | CT ---
CT OF THE THORAX WITHOUT CONTRAST: 04/09/20 INDICATION: Suspicion for pneumonia on a chest radiograph dated 04/09/20. COMPARISON: Prior CTA of the chest dated 07/22/19. FINDINGS: There is perihilar air space opacity. There is small bilateral pleural effusions. There is cardiomega ly. There are mildly prominent lymph nodes within the mediastinum that appear largely similar to the comparison CTA examination. Subcarinal lymph node measured 1.9 cm. There is some subsegmental volume loss involving both lower lobes. There is some reticular nodular opacities involving the right middle lobe. Slightly more confluent ground glass opacity is seen within the posterior right lower lobe. Th e visualized upper abdomen reveals no definite acute abnormality. The prominent compression abnormali ty involving L1 is similar appearing. Mild wedge deformities of the lower thoracic spine appears allison lar to the prior. There is diffuse osteopenia. IMPRESSION: 1. Cardiomegaly with pulmonary vascular congestion with suspected perihilar edema and small bila teral pleural effusion suspicious for CHF. More confluent ground glass opacity is seen in the right l ower lobe which may reflect more prominent air space edema; however, a component of pneumonia is not excluded. There are a few reticular nodular opacities within the right lower lobe which is more suspi cious for a bronchiolitis. 2. There is persistent lymphadenopathy within the hilar and mediastinal regions but appear simil ar to the CTA examination from 07/22/19. Mild prominence of the right axillary vein possibly related t o some ------ obstructive physiology from the patient's lymphadenopathy is again seen. 3. Stable chronic compression abnormality of L1. POS: BH
[2020-04-09] MEDS ORDERED: Famotidine/PF 20 mg/2ml Vial SLOW IVP SCH (21:00)
[2020-04-10] MEDS: methylPREDNISolone Sod Succ 40 MG VIAL IVP SCH ×3 (05:32→18:10)
[2020-04-10 06:15] LABS: #Lymphocytes 0.8 thou/uL (1.20-3.40); #Monocytes 0.2 thou/uL (0.11-0.59); #Neutrophils 3.5 thou/uL (1.40-6.50); %Basophils 0.1 % (0.0-1.0); %Eosinophils 0.3 % (0.0-10.0); %Lymphocytes 16.8 % (21.0-51.0); %Monocytes 5.2 % (0.0-10.0); %Neutrophils 77.6 % (42.0-75.0); Hemoglobin 8.7 g/dL (12.0-16.0); Mean Corpuscular HGB CONC 32.7 g/dL (32.0-36.0); Mean Corpuscular Hemoglobin 28.6 pg (27.0-31.0); Mean Corpuscular Volume 87.5 fL (78.0-98.0); Mean Platelet Volume 7.6 fL (7.4-10.4); Platelet Count 186 thou/uL (130-400); RBC Distribution Width 18.8 % (11.5-14.5); Red Blood Cell (RBC) Count 3.02 mill/uL (4.20-5.40); White Blood Cell (WBC) Count 4.5 thou/uL (4.8-10.8)
[2020-04-10 06:37] LABS: Anion Gap 23 mmol/L (10-20); BUN (Urea Nitrogen) 47 mg/dL (9.8-20.1); Calc. Creatinine Clearance 7 mL/min (70-130); Calcium 8.8 mg/dL (7.8-10.44); Carbon Dioxide 19 mmol/L (23-31); Chloride 103 mmol/L (98-107); Glucose 184 mg/dL (83-110); Potassium 5.6 mmol/L (3.5-5.1); Sodium 139 mmol/L (136-145)
--- NOTE | 2020-04-10 07:06 | CON ---
DATE OF CONSULTATION: 04/09/2020 CONSULTING PHYSICIAN: Virgilio Ronquillo MD REQUESTING PHYSICIAN: Hospitalist program with [facility] Prit[facility]. REASON FOR CONSULTATION: Need for maintenance hemodialysis. IMPRESSION: 1. End-stage renal disease, on [id number]-Ufovnbya dialysis. 2. Respiratory distress, likely multifactorial. 3. Possible pneumonitis. HISTORY OF PRESENT ILLNESS: History is that of a 75-year-old female patient with end-stage renal disease, hemodialysis dependent on a Fnuqhpb-Rbtgbbzj-Ystoyhud schedule, who presented here with shortness of breath and generalized weakness. The need for maintenance hemodialysis necessitated Renal consultation. The patient also has history of asthma. PAST MEDICAL HISTORY: Notable for end-stage renal disease, hypertension, asthma. MEDICATIONS: Reviewed as documented on [employer]. ALLERGIES: NONE. FAMILY HISTORY: Nonsignificantly related to present illness. SOCIAL HISTORY: No alcohol, no tobacco, no illicit drug use. REVIEW OF SYSTEMS: As documented in the body of the history. All other systems were reviewed and found not to be significantly related to present illness. PHYSICAL EXAMINATION: GENERAL: The patient is alert and oriented. HEENT: Unremarkable. CARDIOVASCULAR SYSTEM: First and second heart sounds were heard. RESPIRATORY SYSTEM: Reveals some transmitted sounds. There are some rhonchi. DIGESTIVE SYSTEM: Revealed a benign abdomen with positive bowel sounds. EXTREMITIES: No peripheral edema. SKIN: No new gross rash. LYMPHATICS: No peripheral lymphadenopathy. SUMMARY: This is a Job ID: [id number]
[2020-04-10] MEDS ORDERED: Diphenoxylate HCl/Atropine Tablet PO PRN (07:45)
[2020-04-10] MEDS ORDERED: predniSONE 20 MG TAB PO SCH (09:00)
[2020-04-10] MEDS: Amlodipine 10 MG TAB PO SCH (13:06)
[2020-04-10] MEDS: Carvedilol 25 MG TAB PO SCH ×2 (13:07→20:25)
[2020-04-10] MEDS: Aspirin 81 mg Enteric Coated Tablet PO SCH (13:07)
[2020-04-10] MEDS: cefTRIAXone\\ROCEPHIN 1 GM in Sodium Chloride 0.9% 100 ML IVPB SCH (13:07)
[2020-04-10] MEDS: Heparin 5,000 UNITS/ML VIAL SC SCH ×3 (13:08→20:49)
--- NOTE | 2020-04-10 14:01 | PDOC.HOSPP ---
- Subjective Encounter Date: 04/10/20 Encounter Time: 13:59 Subjective: Patient is s/p dialysis and has 3L of fluid removed with plans to repeat dialysis tomorrow and remove another 3L. She states she feels significantly better. Her breathing has improved and she reports an occasional wheeze with a productive cough. Does not know what color sputum it is. Denies any fevers, chills or sweats. Otherwise feels well and is without any other complaints. CT chest done yesterday demonstrated: 1. Cardiomegaly with pulmonary vascular congestion with suspected perihilar edema and small bilateral pleural effusion suspicious for CHF. More confluent ground glass opacity seen in the right lower lobe, reflecting more prominent air space edema, however component of pneumonia could not be excluded. A few reticular nodular opacities seen in the right lower lobe suspicious for bronchiolitis. 2. Persistent lymphadenopathy within the hilar and mediastinal regions which appeared similar to CT done 06/2019. Mild prominence of right axillary vein. 3. Stable compression abnormality of L1. - Objective Vital Signs & Weight: Vital Signs (12 hours) Temp Pulse Resp BP Pulse Ox 04/10/20 13:57 87 18 94 L 04/10/20 13:15 98.7 F 108 H 16 173/78 H 96 04/10/20 13:06 95 04/10/20 08:45 98 04/10/20 08:00 98.3 F 95 18 160/99 H 98 04/10/20 07:57 89 18 97 04/10/20 04:00 98.4 F 96 20 158/80 H 96 Weight Weight 129 lb I&O: 04/09/20 04/10/20 04/11/20 06:59 06:59 06:59 Intake Total 850 Balance 850 Result Diagrams: 04/10/20 05:59 04/10/20 05:59 Hospitalist ROS - Review of Systems ENT: denies: ear pain, ear discharge, nose pain, nose discharge, nose congestion, mouth pain, mouth swelling, throat pain, throat swelling, other Respiratory: reports: cough, wheezing Cardiovascular: denies: chest pain, palpitations, orthopnea, paroxysmal noc. d yspnea, edema, light headedness, other Gastrointestinal: denies: nausea, vomiting, abdominal pain, diarrhea, constipation, melena, hematochezia, other Genitourinary: denies: dysuria, frequency, incontinence, hematuria, retention, other Musculoskeletal: denies: neck pain, shoulder pain, arm pain, back pain, hand pain, leg pain, foot pain, other Skin: denies: rash, lesions, chago, bruising, other Neurological: denies: weakness, numbness, incoordination, change in speech, co nfusion, seizures, other - Medication Medications: Active Medications Generic Name Dose Route Start Last Admin Trade Name Freq PRN Reason Stop Dose Admin Albuterol/Ipratropium 3 ml 04/09/20 19:00 04/10/20 13:57 Ipratropium/Albuterol Sulfate 3 Ml Neb NEB 3 ml [id number] CATHIE Administration Amlodipine Besylate 10 mg 04/10/20 09:00 04/10/20 13:06 Amlodipine 10 Mg Tab PO 10 mg DAILY CATHIE Administration Aspirin 81 mg 04/10/20 09:00 04/10/20 13:07 Aspirin 81 Mg Enteric Coated Tablet PO 81 mg DAILY CATHIE Administration Carvedilol 25 mg 04/10/20 09:00 04/10/20 13:07 Carvedilol 25 Mg Tab PO 25 mg BID CATHIE Administration Heparin Sodium (Porcine) 5,000 units 04/09/20 15:00 04/10/20 13:08 Heparin 5,000 Units/Ml Vial SC Not Given TID CATHIE Ceftriaxone Sodium 1 gm/ 100 mls @ 200 mls/hr 04/10/20 11:00 04/10/20 13:07 Sodium Chloride IVPB 100 mls 1100 CATHIE Administration Methylprednisolone Sodium Succinate 40 mg 04/09/20 18:00 04/10/20 13:07 Methylprednisolone Sod Succ 40 Mg Vial IVP 40 mg Q6HR CATHIE Administration Pantoprazole Sodium 40 mg 04/10/20 09:00 04/10/20 13:07 Pantoprazole 40 Mg Tab PO 40 mg DAILY CATHIE Administration Sodium Chloride 10 ml 04/09/20 11:30 04/09/20 16:13 Flush - Normal Saline 10 Ml Syringe IVF 10 ml Q12HR PRN Administration Saline Flush - Exam General Appearance: NAD, awake alert Eye: PERRL, anicteric sclera ENT: normocephalic atraumatic, no oropharyngeal lesions Neck: supple, symmetric, no lymphadenopathy Heart: RRR, normal peripheral pulses Respiratory: no wheezes, normal chest expansion, no tachypnea, rales (fine cr ackles at bases) Gastrointestinal: soft, non-tender, non-distended, normal bowel sounds, no guarding, no rigidity Extremities: no edema Skin: normal turgor, no lesions, no rashes Neurological: cranial nerve grossly intact, normal sensation to touch, no focal deficits Musculoskeletal: normal tone, normal strength, no muscle wasting Psychiatric: normal affect, normal behavior, A&O x 3 Hosp A/P (1) Shortness of breath Code(s): R06.02 - SHORTNESS OF BREATH Status: Resolved Plan: Multifactorial: Fluid overload with background of COPD and possibly underlying pneumonia/pneumonitis Significantly improved following dialysis Monitor O2 sats Continue Nebs and steroids Continue antibiotics Will have additional dialysis tomorrow, will repeat CXR tmrw to assess for underlying pneumonia (2) Elevated troponin I level Code(s): R77.8 - OTHER SPECIFIED ABNORMALITIES OF PLASMA PROTEINS Status: Acute Plan: No chest pain Likely due to CHF exacerbation with background of ESRD. (3) Generalized weakness Code(s): R53.1 - WEAKNESS Status: Chronic Plan: Feeling better today PT/OT consulted (4) Chronic CHF Code(s): I50.9 - HEART FAILURE, UNSPECIFIED Status: Chronic Plan: BNP 2118.7 S/p dialysis with 3L removed, to be repeated tmrw am. Obtain Echo (5) COPD (chronic obstructive pulmonary disease) Status: Chronic Plan: As above, continue nebs and steroids Monitor O2 sats Not requiring oxygen at present (6) ESRD (end stage renal disease) Code(s): N18.6 - END STAGE RENAL DISEASE Status: Chronic Plan: Dr. Poole has seen the patient s/p HD as mentioned above For repeat HD tmrw morning. (7) HLD (hyperlipidemia) Code(s): E78.5 - HYPERLIPIDEMIA, UNSPECIFIED Status: Chronic (8) HTN (hypertension) Code(s): I10 - ESSENTIAL (PRIMARY) HYPERTENSION Status: Chronic Plan: Continue home meds Monitor BP - Plan continue antibiotics, PT/OT, DVT proph w/heparin
[2020-04-10] MEDS: Azithromycin 500 MG in Sodium Chloride 0.9% 250 ML 250 ML IVPB SCH (14:55)
--- NOTE | 2020-04-10 16:03 | PRG ---
DATE OF SERVICE: 04/10/2020 OBJECTIVE: VITAL SIGNS: The patient noted with the following vital signs; afebrile, temperature 98.7, pulse 87, respiratory rate of 18, O2 saturations of 94%, blood pressure 173/78. GENERAL: The patient seems to be in some respiratory distress. HEENT: Unremarkable. CARDIOVASCULAR SYSTEM: First and second heart sounds were heard. RESPIRATORY SYSTEM: Shows some rales. DIGESTIVE SYSTEM: Revealed a benign abdomen. EXTREMITIES: No peripheral edema. LABORATORY INVESTIGATION: Showed a potassium of 5.6 with BUN of 47 and creatinine 6.62. IMPRESSION: 1. End-stage renal disease. 2. Congestive heart failure. 3. Hypervolemia. 4. Respiratory distress. 5. Possible pneumonitis. PLAN: 1. The patient to be dialyzed today with ultrafiltration as tolerated by hemodynamics. Subsequently, tomorrow patient can be dialyzed again to put back the patient on the schedule of Monday, , Monday. 2. Further management to be dependent on the clinical course. Job ID: [id number]
[2020-04-10] MEDS: Atorvastatin Calcium 20 MG TAB PO SCH (20:25)
[2020-04-11] MEDS: methylPREDNISolone Sod Succ 40 MG VIAL IVP SCH ×3 (00:21→12:22)
[2020-04-11] MEDS: Heparin 5,000 UNITS/ML VIAL SC SCH ×3 (09:00→20:52)
[2020-04-11] MEDS: Carvedilol 25 MG TAB PO SCH ×2 (09:00→20:51)
[2020-04-11] MEDS: Aspirin 81 mg Enteric Coated Tablet PO SCH (12:19)
[2020-04-11] MEDS: cefTRIAXone\\ROCEPHIN 1 GM in Sodium Chloride 0.9% 100 ML IVPB SCH (12:22)
[2020-04-11] MEDS: Amlodipine 10 MG TAB PO SCH (12:24)
[2020-04-11] MEDS: Azithromycin 500 MG in Sodium Chloride 0.9% 250 ML 250 ML IVPB SCH (13:25)
--- NOTE | 2020-04-11 16:32 | EKG ---
Test Reason : Blood Pressure : / mmHG Vent. Rate : 098 BPM Atrial Rate : 098 BPM P-R Int : 134 ms QRS Dur : 082 ms QT Int : 360 ms P-R-T Axes : 064 054 065 degrees QTc Int : 459 ms Normal sinus rhythm Septal infarct , age undetermined Abnormal ECG Confirmed by ALTAF Helton, ANJEL ([id number]), television news video editor PAULINE ADAN ([id number]) on 04/11/2020 4:31:48 PM Referred By: Confirmed By:ANJEL SOLITARIO M.D.
--- NOTE | 2020-04-11 16:56 | PDOC.HOSPP ---
- Subjective Encounter Date: 04/11/20 Encounter Time: 16:54 Subjective: Ms. Harrell was seen today in follow-up of respiratory failure. She says she is breathing better today. She noted some red colored stool. She believes it is blood. She had one episode early this morning, then again this afternoon. She denies any abdominal pain. She had a colonoscopy about a month ago, and had a polypectomy. - Objective Vital Signs & Weight: Vital Signs (12 hours) Temp Pulse Resp BP BP Pulse Ox 04/11/20 13:09 81 18 96 04/11/20 12:25 98.0 F 80 18 149/73 H 96 04/11/20 12:24 80 149/73 H 04/11/20 08:00 95 04/11/20 07:08 85 18 95 Weight Weight 129 lb I&O: 04/10/20 04/11/20 04/12/20 06:59 06:59 06:59 Intake Total 850 670 Balance 850 670 Result Diagrams: 04/10/20 05:59 04/10/20 05:59 Hospitalist ROS - Medication Medications: Active Medications Generic Name Dose Route Start Last Admin Trade Name Freq PRN Reason Stop Dose Admin Albuterol/Ipratropium 3 ml 04/09/20 19:00 04/11/20 13:09 Ipratropium/Albuterol Sulfate 3 Ml Neb NEB 3 ml [id number] CATHIE Administration Amlodipine Besylate 10 mg 04/10/20 09:00 04/11/20 12:24 Amlodipine 10 Mg Tab PO 10 mg DAILY CATHIE Administration Aspirin 81 mg 04/10/20 09:00 04/11/20 12:19 Aspirin 81 Mg Enteric Coated Tablet PO 81 mg DAILY CATHIE Administration Atorvastatin Calcium 20 mg 04/10/20 21:00 04/10/20 20:25 Atorvastatin Calcium 20 Mg Tab PO 20 mg HS CATHIE Administration Carvedilol 25 mg 04/10/20 09:00 04/11/20 09:00 Carvedilol 25 Mg Tab PO Not Given BID CATHIE Heparin Sodium (Porcine) 5,000 units 04/09/20 15:00 04/11/20 15:43 Heparin 5,000 Units/Ml Vial SC 5,000 units TID CATHIE Administration Azithromycin 500 mg/ Sodium 250 mls @ 250 mls/hr 04/10/20 12:00 04/11/20 13 :25 Chloride IVPB 250 mls 1200 CATHIE Administration Ceftriaxone Sodium 1 gm/ 100 mls @ 200 mls/hr 04/10/20 11:00 04/11/20 12:22 Sodium Chloride IVPB 100 mls 1100 CATHIE Administration Methylprednisolone Sodium Succinate 40 mg 04/09/20 18:00 04/11/20 12:22 Methylprednisolone Sod Succ 40 Mg Vial IVP 40 mg Q6HR CATHIE Administration Pantoprazole Sodium 40 mg 04/10/20 09:00 04/11/20 12:19 Pantoprazole 40 Mg Tab PO 40 mg DAILY CATHIE Administration Sodium Chloride 10 ml 04/09/20 11:30 04/09/20 16:13 Flush - Normal Saline 10 Ml Syringe IVF 10 ml Q12HR PRN Administration Saline Flush - Exam Eye: PERRL, anicteric sclera Heart: RRR, no murmur, no gallops, no rubs Respiratory: CTAB, no wheezes, no rales, no ronchi, normal chest expansion, no tachypnea, normal percussion Gastrointestinal: soft, non-tender, non-distended, normal bowel sounds, no palpable masses Extremities: no cyanosis, no edema Hosp A/P (1) Pulmonary edema Code(s): J81.1 - CHRONIC PULMONARY EDEMA Status: Acute (2) Acute on chronic systolic CHF (congestive heart failure) Code(s): I50.23 - ACUTE ON CHRONIC SYSTOLIC (CONGESTIVE) HEART FAILURE Status: Acute (3) Generalized weakness Code(s): R53.1 - WEAKNESS Status: Chronic (4) ESRD (end stage renal disease) Code(s): N18.6 - END STAGE RENAL DISEASE Status: Chronic (5) HLD (hyperlipidemia) Code(s): E78.5 - HYPERLIPIDEMIA, UNSPECIFIED Status: Chronic (6) HTN (hypertension) Code(s): I10 - ESSENTIAL (PRIMARY) HYPERTENSION Status: Chronic (7) Volume overload Code(s): E87.70 - FLUID OVERLOAD, UNSPECIFIED Status: Acute (8) COPD (chronic obstructive pulmonary disease) Status: Chronic - Plan * Acute respiratory failure- likely due to volume overload- will re-check her BNP in the AM as it was elevated above baseline on admission * ? blood in the stool- will check stool for occult blood * HTN- blood pressure is stable- continue home medications * ESRD- continue dialysis as per Nephrology * COPD- possibly with exacerbation- she says she breathes better after a treatment- will begin to sandro steroids * Will check a procalcitonin in the AM, and consider de-escalting antibiotics
--- NOTE | 2020-04-11 18:30 | PRG ---
DATE OF SERVICE: 04/11/2020 SUBJECTIVE: The patient noted to be breathing better. Hemodynamically stable. OBJECTIVE: VITAL SIGNS: Afebrile. Temperature 98, pulse 81, respiratory rate of 18, blood pressure 149/73 HEENT: Unremarkable. CARDIOVASCULAR SYSTEM: First and second heart sounds were heard. RESPIRATORY SYSTEM: Clear to auscultation anteriorly. DIGESTIVE SYSTEM: Revealed a benign abdomen. EXTREMITIES: No peripheral edema. SKIN: No new gross rash. LYMPHATICS: No peripheral lymphadenopathy. IMPRESSION: 1. End-stage renal disease, on dialysis. 2. Respiratory failure in the context of pulmonary congestion. 3. Query GI bleed. 4. Dyslipidemia. PLAN: 1. We will avoid dialyzing this patient with heparin products until the patient's GI bleeding stabilize. 2. We will put by this patient on a normal schedule of Monday, , Monday hemodialysis schedule with ultrafiltration as tolerated by hemodynamics. 3. Further management to be dependent on the clinical course. Job ID: [id number]
[2020-04-11] MEDS: Atorvastatin Calcium 20 MG TAB PO SCH (20:51)
[2020-04-12 06:09] LABS: #Lymphocytes 1.1 thou/uL (1.20-3.40); #Monocytes 0.5 thou/uL (0.11-0.59); #Neutrophils 3.5 thou/uL (1.40-6.50); %Basophils 0.1 % (0.0-1.0); %Eosinophils 0.8 % (0.0-10.0); %Lymphocytes 21.8 % (21.0-51.0); %Monocytes 10.2 % (0.0-10.0); %Neutrophils 67.1 % (42.0-75.0); Hemoglobin 7.7 g/dL (12.0-16.0); Mean Corpuscular Hemoglobin 28.4 pg (27.0-31.0); Mean Corpuscular Volume 86.1 fL (78.0-98.0); Mean Platelet Volume 7.8 fL (7.4-10.4); Platelet Count 171 thou/uL (130-400); RBC Distribution Width 18.5 % (11.5-14.5); Red Blood Cell (RBC) Count 2.72 mill/uL (4.20-5.40); White Blood Cell (WBC) Count 5.1 thou/uL (4.8-10.8)
[2020-04-12 06:27] LABS: Anion Gap 18 mmol/L (10-20); BUN (Urea Nitrogen) 38 mg/dL (9.8-20.1); Calc. Creatinine Clearance 12 mL/min (70-130); Calcium 7.9 mg/dL (7.8-10.44); Carbon Dioxide 23 mmol/L (23-31); Chloride 101 mmol/L (98-107); Glucose 131 mg/dL (83-110); Potassium 4.2 mmol/L (3.5-5.1); Sodium 138 mmol/L (136-145)
[2020-04-12] MEDS: methylPREDNISolone Sod Succ 40 MG VIAL IVP SCH (08:15)
[2020-04-12] MEDS: Heparin 5,000 UNITS/ML VIAL SC SCH ×3 (08:15→20:37)
[2020-04-12] MEDS: Amlodipine 10 MG TAB PO SCH (08:15)
[2020-04-12] MEDS: Carvedilol 25 MG TAB PO SCH ×2 (08:15→20:37)
[2020-04-12] MEDS: Aspirin 81 mg Enteric Coated Tablet PO SCH (08:15)
[2020-04-12] MEDS: cefTRIAXone\\ROCEPHIN 1 GM in Sodium Chloride 0.9% 100 ML IVPB SCH (11:51)
[2020-04-12] MEDS: Azithromycin 500 MG in Sodium Chloride 0.9% 250 ML 250 ML IVPB SCH (12:29)
--- NOTE | 2020-04-12 16:26 | PDOC.HOSPP ---
- Subjective Encounter Date: 04/12/20 Encounter Time: 16:23 Subjective: Ms. Harrell was seen today in follow-up of respiratory failure and GI Bleed. She says she feels better with regards to her breathing. She denies feeling short of breath. She notes some chest congestion, but says she has been able to cough it up better. She has not notes any obvious rectal bleeding, but her nurse noted a maroon colored stool today. This has been sent to the lab. - Objective Vital Signs & Weight: Vital Signs (12 hours) Temp Pulse Resp BP BP Pulse Ox 04/12/20 15:17 97.9 F 67 16 99/58 L 99 04/12/20 13:41 72 16 99 04/12/20 11:14 98.1 F 69 16 130/67 97 04/12/20 08:15 72 131/73 04/12/20 08:00 100 04/12/20 07:26 97.6 F 72 18 131/73 100 04/12/20 07:21 74 18 97 Weight Weight 129 lb I&O: 04/11/20 04/12/20 04/13/20 06:59 06:59 06:59 Intake Total 670 250 Balance 670 250 Result Diagrams: 04/12/20 05:19 04/12/20 05:19 Hospitalist ROS - Medication Medications: Active Medications Generic Name Dose Route Start Last Admin Trade Name Freq PRN Reason Stop Dose Admin Albuterol/Ipratropium 3 ml 04/09/20 19:00 04/12/20 13:41 Ipratropium/Albuterol Sulfate 3 Ml Neb NEB 3 ml [id number] CATHIE Administration Amlodipine Besylate 10 mg 04/10/20 09:00 04/12/20 08:15 Amlodipine 10 Mg Tab PO 10 mg DAILY CATHIE Administration Aspirin 81 mg 04/10/20 09:00 04/12/20 08:15 Aspirin 81 Mg Enteric Coated Tablet PO 81 mg DAILY CATHIE Administration Atorvastatin Calcium 20 mg 04/10/20 21:00 04/11/20 20:51 Atorvastatin Calcium 20 Mg Tab PO 20 mg HS CATHIE Administration Carvedilol 25 mg 04/10/20 09:00 04/12/20 08:15 Carvedilol 25 Mg Tab PO 25 mg BID CATHIE Administration Heparin Sodium (Porcine) 5,000 units 04/09/20 15:00 04/12/20 15:19 Heparin 5,000 Units/Ml Vial SC Not Given TID CATHIE Azithromycin 500 mg/ Sodium 250 mls @ 250 mls/hr 04/10/20 12:00 04/12/20 12:29 Chloride IVPB 250 mls 1200 CATHIE Administration Ceftriaxone Sodium 1 gm/ 100 mls @ 200 mls/hr 04/10/20 11:00 04/12/20 11:51 Sodium Chloride IVPB 100 mls 1100 CATHIE Administration Methylprednisolone Sodium Succinate 40 mg 04/12/20 09:00 04/12/20 08:15 Methylprednisolone Sod Succ 40 Mg Vial IVP 40 mg DAILY CATHIE Administration Pantoprazole Sodium 40 mg 04/10/20 09:00 04/12/20 08:15 Pantoprazole 40 Mg Tab PO 40 mg DAILY CATHIE Administration Sodium Chloride 10 ml 04/09/20 11:30 04/09/20 16:13 Flush - Normal Saline 10 Ml Syringe IVF 10 ml Q12HR PRN Administration Saline Flush - Exam Eye: PERRL, anicteric sclera Heart: RRR, no murmur, no gallops, no rubs, normal peripheral pulses Respiratory: CTAB, no wheezes, no rales, no ronchi, normal chest expansion, no tachypnea Gastrointestinal: soft, non-tender, non-distended, normal bowel sounds, no palpable masses, no hepatomegaly Extremities: no cyanosis, no clubbing, no edema Skin: normal turgor, no lesions Hosp A/P (1) Pulmonary edema Code(s): J81.1 - CHRONIC PULMONARY EDEMA Status: Acute Qualifiers: Chronicity: acute Qualified Code(s): J81.0 - Acute pulmonary edema (2) Acute on chronic systolic CHF (congestive heart failure) Code(s): I50.23 - ACUTE ON CHRONIC SYSTOLIC (CONGESTIVE) HEART FAILURE Status: Acute (3) Generalized weakness Code(s): R53.1 - WEAKNESS Status: Chronic (4) ESRD (end stage renal disease) Code(s): N18.6 - END STAGE RENAL DISEASE Status: Chronic (5) HLD (hyperlipidemia) Code(s): E78.5 - HYPERLIPIDEMIA, UNSPECIFIED Status: Chronic (6) HTN (hypertension) Code(s): I10 - ESSENTIAL (PRIMARY) HYPERTENSION Status: Chronic (7) Volume overload Code(s): E87.70 - FLUID OVERLOAD, UNSPECIFIED Status: Acute (8) COPD (chronic obstructive pulmonary disease) Status: Chronic (9) GI bleed Code(s): K92.2 - GASTROINTESTINAL HEMORRHAGE, UNSPECIFIED Status: Acute - Plan * Acute respiratory failure- from volume overload and COPD- much improved * Will discontinue Azithromycin tomorrow * Blood in the stool- will continue Protonix, and hold Heparin. Consult GI ( she has seen Dr. Carrington recently) * HTN- blood pressure is low /normal - will monitor * ESRD- continue dialysis as per Nephrology * COPD-with exacerbation- improving- can de-escalte antibiotics tomorrow
[2020-04-12] MEDS: Atorvastatin Calcium 20 MG TAB PO SCH (20:37)
[2020-04-13 06:07] LABS: #Lymphocytes 1.2 thou/uL (1.20-3.40); #Monocytes 0.5 thou/uL (0.11-0.59); #Neutrophils 2.9 thou/uL (1.40-6.50); %Basophils 0.3 % (0.0-1.0); %Eosinophils 0.3 % (0.0-10.0); %Lymphocytes 25.6 % (21.0-51.0); %Monocytes 10.9 % (0.0-10.0); Hemoglobin 8.1 g/dL (12.0-16.0); Mean Corpuscular HGB CONC 33.4 g/dL (32.0-36.0); Mean Corpuscular Hemoglobin 28.7 pg (27.0-31.0); Mean Corpuscular Volume 85.8 fL (78.0-98.0); Mean Platelet Volume 8.2 fL (7.4-10.4); Platelet Count 176 thou/uL (130-400); RBC Distribution Width 18.5 % (11.5-14.5); Red Blood Cell (RBC) Count 2.81 mill/uL (4.20-5.40); White Blood Cell (WBC) Count 4.6 thou/uL (4.8-10.8)
[2020-04-13] MEDS: methylPREDNISolone Sod Succ 40 MG VIAL IVP SCH (08:02)
[2020-04-13] MEDS: Carvedilol 25 MG TAB PO SCH ×2 (08:03→20:25)
[2020-04-13] MEDS: Amlodipine 10 MG TAB PO SCH (08:03)
[2020-04-13] MEDS: Aspirin 81 mg Enteric Coated Tablet PO SCH (08:06)
[2020-04-13] MEDS: Heparin 5,000 UNITS/ML VIAL SC SCH ×3 (08:06→20:25)
[2020-04-13 09:08] LABS: Anion Gap 20 mmol/L (10-20); BUN (Urea Nitrogen) 60 mg/dL (9.8-20.1); Calc. Creatinine Clearance 7 mL/min (70-130); Calcium 7.5 mg/dL (7.8-10.44); Carbon Dioxide 22 mmol/L (23-31); Chloride 98 mmol/L (98-107); Glucose 158 mg/dL (83-110); Potassium 4.1 mmol/L (3.5-5.1); Sodium 136 mmol/L (136-145)
[2020-04-13] MEDS: cefTRIAXone\\ROCEPHIN 1 GM in Sodium Chloride 0.9% 100 ML IVPB SCH (10:05)
--- NOTE | 2020-04-13 11:25 | PDOC.HOSPP ---
- Subjective Encounter Date: 04/13/20 Encounter Time: 11:23 Subjective: Ms. Harrell was seen today in follow-up of respiratory failure. She says she is breathing better today. She only feels a lump in her chest which is difficult to get up, otherwise she feels fine. - Objective Vital Signs & Weight: Vital Signs (12 hours) Temp Pulse Resp BP BP Pulse Ox 04/13/20 08:03 67 124/69 04/13/20 08:01 98.1 F 66 14 124/69 98 04/13/20 08:00 98 04/13/20 07:19 69 16 97 04/13/20 04:00 97.9 F 69 16 109/61 99 04/13/20 00:00 98.2 F 67 16 113/57 L 97 04/12/20 23:34 96 Weight Weight 129 lb I&O: 04/12/20 04/13/20 04/14/20 06:59 06:59 06:59 Intake Total 250 Balance 250 Result Diagrams: 04/13/20 05:31 04/13/20 08:34 Hospitalist ROS - Medication Medications: Active Medications Generic Name Dose Route Start Last Admin Trade Name Freq PRN Reason Stop Dose Admin Albuterol/Ipratropium 3 ml 04/09/20 19:00 04/13/20 07:19 Ipratropium/Albuterol Sulfate 3 Ml Neb NEB 3 ml [id number] CATHIE Administration Amlodipine Besylate 10 mg 04/10/20 09:00 04/13/20 08:03 Amlodipine 10 Mg Tab PO 10 mg DAILY CATHIE Administration Aspirin 81 mg 04/10/20 09:00 04/13/20 08:06 Aspirin 81 Mg Enteric Coated Tablet PO Not Given DAILY CATHIE Atorvastatin Calcium 20 mg 04/10/20 21:00 04/12/20 20:37 Atorvastatin Calcium 20 Mg Tab PO 20 mg HS CATHIE Administration Carvedilol 25 mg 04/10/20 09:00 04/13/20 08:03 Carvedilol 25 Mg Tab PO 25 mg BID CATHIE Administration Heparin Sodium (Porcine) 5,000 units 04/09/20 15:00 04/13/20 08:06 Heparin 5,000 Units/Ml Vial SC Not Given TID CATHIE Azithromycin 500 mg/ Sodium 250 mls @ 250 mls/hr 04/10/20 12:00 04/12/20 12:29 Chloride IVPB 250 mls 1200 CATHIE Administration Ceftriaxone Sodium 1 gm/ 100 mls @ 200 mls/hr 04/10/20 11:00 04/13/20 10:05 Sodium Chloride IVPB 100 mls 1100 CATHIE Administration Methylprednisolone Sodium Succinate 40 mg 04/12/20 09:00 04/13/20 08:02 Methylprednisolone Sod Succ 40 Mg Vial IVP 40 mg DAILY CATHIE Administration Pantoprazole Sodium 40 mg 04/10/20 09:00 04/13/20 08:03 Pantoprazole 40 Mg Tab PO 40 mg DAILY CATHIE Administration Sodium Chloride 10 ml 04/09/20 11:30 04/09/20 16:13 Flush - Normal Saline 10 Ml Syringe IVF 10 ml Q12HR PRN Administration Saline Flush - Exam Eye: PERRL, anicteric sclera Heart: RRR, no murmur, no gallops, no rubs, normal peripheral pulses Respiratory: CTAB (with occasional rales at the base) Gastrointestinal: soft, non-tender, non-distended, normal bowel sounds, no palpable masses, no hepatomegaly Extremities: no cyanosis, no clubbing, no edema Hosp A/P (1) Acute on chronic systolic CHF (congestive heart failure) Code(s): I50.23 - ACUTE ON CHRONIC SYSTOLIC (CONGESTIVE) HEART FAILURE Status: Acute (2) Pulmonary edema Code(s): J81.1 - CHRONIC PULMONARY EDEMA Status: Acute Qualifiers: Chronicity: acute Qualified Code(s): J81.0 - Acute pulmonary edema (3) Generalized weakness Code(s): R53.1 - WEAKNESS Status: Chronic (4) ESRD (end stage renal disease) Code(s): N18.6 - END STAGE RENAL DISEASE Status: Chronic (5) HLD (hyperlipidemia) Code(s): E78.5 - HYPERLIPIDEMIA, UNSPECIFIED Status: Chronic (6) HTN (hypertension) Code(s): I10 - ESSENTIAL (PRIMARY) HYPERTENSION Status: Chronic (7) Volume overload Code(s): E87.70 - FLUID OVERLOAD, UNSPECIFIED Status: Acute (8) COPD (chronic obstructive pulmonary disease) Status: Chronic (9) GI bleed Code(s): K92.2 - GASTROINTESTINAL HEMORRHAGE, UNSPECIFIED Status: Acute (10) Acute respiratory failure with hypoxemia Code(s): J96.01 - ACUTE RESPIRATORY FAILURE WITH HYPOXIA Status: Acute - Plan * Acute respiratory failure- from volume overload and COPD- much improved * Her Echo has resulted- She was found to have an EF which was around 30%, much lower than on her previous- will move her to Telemetry, and consult Cardiology * Will discontinue Azithromycin and Rocephin * Melena- discussed with Dr. Carrington- no indication for endoscopy * HTN- blood pressure is normal * ESRD- continue dialysis as per Nephrology * COPD-with exacerbation- improving - will discontinue steroids
[2020-04-13] MEDS: Azithromycin 500 MG in Sodium Chloride 0.9% 250 ML 250 ML IVPB SCH (11:26)
--- NOTE | 2020-04-13 12:51 | CON ---
DATE OF CONSULTATION: HISTORY OF PRESENT ILLNESS: The patient is a 75-year-old woman with a history of congestive heart failure, who presents with increasing dyspnea. The patient was seen in 2012. She was found to have a severe decrease in left ventricular systolic function. She underwent a cardiac catheterization. Her estimated ejection fraction was 15% to 20%. She had a 20% LAD lesion and 20% RCA lesion. The patient subsequently was placed on medical therapy. She did not have close followup. The patient had subsequently developed end-stage renal disease and has been on dialysis. She was seen in June of this year with congestive heart failure. She underwent a Cardiolite stress test revealed to have a mild decrease in left ventricular systolic function with no significant ischemia. An echocardiogram revealed normal left systolic function. The patient presents once again with increasing dyspnea. The patient became acutely short of breath. The patient denied having any chest discomfort. PAST MEDICAL HISTORY: 1. Cardiomyopathy. 2. Mild coronary artery disease. 3. Hypertension. 4. End-stage renal disease. 5. Asthma. 6. History of hepatitis C. 7. History of CVA. PAST SURGICAL HISTORY: Hysterectomy and AV fistula. SOCIAL HISTORY: Nonsmoker. FAMILY HISTORY: Positive family history of heart disease. ALLERGIES: IODINE AND ONDANSETRON. REVIEW OF SYSTEMS: Ten-point system otherwise unremarkable. PHYSICAL EXAMINATION: GENERAL: Obese woman, in no acute distress. VITAL SIGNS: With a blood pressure 124/69. NECK: Showed no jugular venous distention. LUNGS: Clear to auscultation. HEART: Regular rate and rhythm. Normal S1 and S2 with no murmurs. ABDOMEN: Distended. EXTREMITIES: Showed an AV fistula. LABORATORY DATA: Sodium 136, potassium 4.1, chloride 98, bicarbonate 22, BUN 60, creatinine 6.0, and glucose is 258. BNP is 2285. White blood cell count 4.6, hemoglobin 8.1, hematocrit 24.1, and platelets are 176. EKG normal sinus rhythm, Q-waves suggestive of a possible previous septal infarct. Echocardiogram moderate to severe decrease in left ventricular systolic function. Estimated ejection fraction 30% to 35%. IMPRESSION AND PLAN: 1. Congestive heart failure. 2. History of a nonischemic cardiomyopathy. 3. History of mild coronary artery disease. 4. End-stage renal disease. 5. Asthma. This patient presents with recurrent congestive heart failure. From a cardiac standpoint, she should be on Entresto. We will discontinue her Norvasc. We will follow this patient with you through her hospitalization. Job ID: [id number]
--- NOTE | 2020-04-13 17:38 | CON ---
DATE OF CONSULTATION: 04/13/2020 HISTORY OF PRESENT ILLNESS: Ms. Harrell is a 75-year-old female, well known to me. I saw her earlier in August of this year for anemia and Hemoccult-positive stool. She has been in the hospital with an episode of pain and hypertension. At that time, she has had clots in her stool as well. She ultimately underwent EGD and colonoscopy with findings of severe erythema and inflammatory polyps in the antrum of the stomach and duodenum, all of which were benign and hyperplastic. Also, she had polypoid changes with healing mucosa in the splenic flexure and sigmoid colon which had some large inflammatory polyps that were removed and found to be just hyperplastic inflammatory polyps. This all seemed to probably be related to ischemia and healing. Her hemoglobin returned at 11 to 12 range. She underwent upper and lower endoscopy on 03/17 with again multiple hyperplastic and multilobulated, some sessile pedunculated polyps in the splenic flexure and sigmoid colon. There was no active bleeding or fresh ulcers. Pathology again showed just hyperplastic inflammatory polyps. EGD showed less gastric hyperplastic polyps that there were still some present. These were removed. This admission was precipitated by weakness, shortness of breath. She felt her COPD was getting worse which she was getting with inhalers. I talked with her hospitalist who has consulted me. Apparently, she was found to have some heart failure this admission, which was new and they felt this was probably more the issue once they got her admitted. The patient reports she had maroonish stool on and after she was admitted with just one time. She has had no further bleeding since then. Dr. Ross, her admitting physician notes that she had a little bit of red flecks in her stool yesterday. The patient's hemoglobin was 9.9 on 03/24. On admission, it was 9.2 and it dropped down to 7.7, today is 8.1. She states her stools have been chung today. She denies any abdominal pain, melena, hematochezia. Her breathing is much better. PAST MEDICAL HISTORY: Cardiomyopathy, coronary artery disease, mild hypertension, end-stage renal disease, on dialysis, asthma, history of hepatitis C, history of prior CVA, COPD, arthritis, chronic issues with anemia and reflux. PAST SURGICAL HISTORY: Hysterectomy, AV fistula placement, upper and lower endoscopies as noted above, appendectomy, cataract surgery. SOCIAL HISTORY: Alcohol, none. Tobacco, never smoker. Drugs, none. FAMILY HISTORY: Heart disease. ALLERGIES: IODINE, ONDANSETRON. REVIEW OF SYSTEMS: Patient does note she stopped her cholesterol medicine and PPI recently when our office told her to do so in anticipation of starting Mavyret for hepatitis C, although she has not received her Mavyret yet. MEDICATIONS: At home 1. Amlodipine. 2. Aspirin. 3. Atorvastatin. 4. B complex. 5. Carvedilol. 6. Ipratropium. 7. Albuterol. 8. Lomotil. 9. Mometasone/formoterol. 10. Prilosec 40 mg daily or Protonix. 11. Tramadol. 12. RenaPlex. Medications here 1. P.r.n. Tylenol. 2. Acetaminophen. 3. Albuterol. 4. Amlodipine. 5. Aspirin 81 mg daily. 6. Atorvastatin. 7. Azithromycin. 8. Carvedilol. 9. Rocephin. 10. Heparin. 11. Hydralazine. 12. Methylprednisolone. 13. Protonix. PHYSICAL EXAMINATION: VITAL SIGNS: Temperature is 97, pulse 85, blood pressure 123/58, low of 99/58 yesterday, afebrile. GENERAL: She is alert and oriented to person, place, time. LUNGS: Clear. HEART: Regular rate and rhythm without clicks or no murmurs. ABDOMEN: Soft and nontender. There is no rebound. There is no guarding. No palpable hepatosplenomegaly. EXTREMITIES: No clubbing, cyanosis, or edema. ASSESSMENT: 1. Lower GI bleed, self-limited. Hemoglobin is about at baseline. She was offered PPI for about a week at home anticipating starting Mavyret for hep C, but has not done that yet. This could have been bleeding related to starting anticoagulation for DVT prophylaxis. She was admitted as she has had inflammatory polyps in the left colon, she had blood in the path. There were no signs of acute GI hemorrhage. I would not intervene at this time. 2. Congestive heart failure. 3. Admission with shortness of breath. She felt this is her COPD or asthma or maybe the heart failure worsening. 4. Hepatitis C. Trying to get her Mavyret in the office to treat this and once we do, we will need to hold her statin and PPI during that time. 5. Endstage renal disease, on hemodialysis. RECOMMENDATIONS: Agree with PPI. Observe. Follow up in the office after discharge regarding hepatitis C treatment. Job ID: [id number]
[2020-04-13] MEDS: Atorvastatin Calcium 20 MG TAB PO SCH (20:25)
[2020-04-14 04:26] LABS: Hemoglobin 8.3 g/dL (12.0-16.0)
--- NOTE | 2020-04-14 06:11 | PRG ---
DATE OF SERVICE: 04/13/2020 SUBJECTIVE: The patient is seen today. Seems to be doing much better, noted with the following vital signs. OBJECTIVE: VITAL SIGNS: Temperature 97.8, pulse 66, respiratory rate of 18, O2 saturation of 96%, blood pressure 130/66. HEENT EXAMINATION: Unremarkable. CARDIOVASCULAR SYSTEM: First and second heart sounds were heard. RESPIRATORY SYSTEM: Clear to auscultation. DIGESTIVE SYSTEM: Revealed a benign abdomen. EXTREMITIES: No peripheral edema. SKIN EXAMINATION: No new gross rash. LYMPHATICS: No peripheral lymphadenopathy. IMPRESSION: 1. End-stage renal disease. 2. . 3. . PLAN: 1. There is no indication for dialysis today. 2. We will plan on dialyzing this patient tomorrow in accordance with his scheduled Monday, , and Monday dialysis. 3. Further management to be dependent on the clinical course. Job ID: [id number]
[2020-04-14 10:22] LABS: Anion Gap 22 mmol/L (10-20); BUN (Urea Nitrogen) 69 mg/dL (9.8-20.1); Calc. Creatinine Clearance 7 mL/min (70-130); Calcium 6.9 mg/dL (7.8-10.44); Carbon Dioxide 19 mmol/L (23-31); Chloride 97 mmol/L (98-107); Glucose 139 mg/dL (83-110); Potassium 4.1 mmol/L (3.5-5.1); Sodium 134 mmol/L (136-145)
--- NOTE | 2020-04-14 13:11 | PRG ---
DATE OF SERVICE: 04/14/2020 SUBJECTIVE: Ms. Harrell was seen in dialysis this morning. She is comfortable without any complaint. She denies any nausea, vomiting, abdominal pain. She did have a small bowel movement this morning that was reportedly brownish without any blood. PHYSICAL EXAMINATION: VITAL SIGNS: Temperature is 98.2, blood pressure 127/57, pulse is 72. GENERAL: She is alert, conversant without distress. HEENT: Shows anicteric sclerae. CV: Shows normal S1, S2. Regular rate and rhythm. CHEST: Shows a breath sounds. ABDOMEN: Soft, nontender. No distention. No tympany. She has active bowel sounds. EXTREMITIES: Show no edema. LABORATORY DATA: Hemoglobin is 8.3 (up from 7.7 two days ago). Electrolytes within normal range. Creatinine 6.34, BUN of 69. ASSESSMENT: 1. Limited lower gastrointestinal bleed/hematochezia, one episode prior to admission which has resolved. The patient now has normal bowel movement without further bleeding. She had esophagogastroduodenoscopy/colonoscopy outpatient three weeks ago that showed large gastric hyperplastic polyps and benign colon polyps. Source of her limited bleeding prior to admission is unknown, but likely of no clinical significance. 2. End-stage renal disease. 3. Heart failure. 4. Chronic obstructive pulmonary disease. RECOMMENDATIONS: 1. Continue pantoprazole 40 mg p.o. daily. 2. Continue to monitor blood count and observe for any overt bleeding. 3. Otherwise, no new recommendation, we will follow. Job ID: [id number]
[2020-04-14] MEDS: Aspirin 81 mg Enteric Coated Tablet PO SCH (13:24)
[2020-04-14] MEDS: Carvedilol 25 MG TAB PO SCH ×2 (13:24→21:07)
[2020-04-14] MEDS: Heparin 5,000 UNITS/ML VIAL SC SCH ×3 (13:25→21:07)
--- NOTE | 2020-04-14 17:06 | PDOC.HOSPP ---
- Subjective Encounter Date: 04/14/20 Encounter Time: 17:04 Subjective: Ms. Harrell was seen today in follow-up of new systolic heart failure. She says she feels fine. She says she is breathing better. She denies any chest pain. She has ambulated some in her room, without difficulty. - Objective Vital Signs & Weight: Vital Signs (12 hours) Temp Pulse Resp BP Pulse Ox 04/14/20 15:45 97.3 F L 60 16 122/60 99 04/14/20 13:15 98.5 F 62 16 148/63 H 98 04/14/20 08:00 98.2 F 72 16 127/57 L 98 04/14/20 06:39 63 16 97 Weight Weight 132 lb 11.2 oz I&O: 04/13/20 04/14/20 04/15/20 06:59 06:59 06:59 Intake Total 240 Balance 240 Result Diagrams: 04/14/20 04:07 04/14/20 09:55 Hospitalist ROS - Medication Medications: Active Medications Generic Name Dose Route Start Last Admin Trade Name Nydia PRN Reason Stop Dose Admin Albuterol/Ipratropium 3 ml 04/09/20 19:00 04/14/20 12:01 Ipratropium/Albuterol Sulfate 3 Ml Neb NEB Not Given [id number] CATHIE Aspirin 81 mg 04/10/20 09:00 04/14/20 13:24 Aspirin 81 Mg Enteric Coated Tablet PO 81 mg DAILY CATHIE Administration Atorvastatin Calcium 20 mg 04/10/20 21:00 04/13/20 20:25 Atorvastatin Calcium 20 Mg Tab PO 20 mg HS CATHIE Administration Carvedilol 25 mg 04/10/20 09:00 04/14/20 13:24 Carvedilol 25 Mg Tab PO 25 mg BID CATHIE Administration Heparin Sodium (Porcine) 5,000 units 04/09/20 15:00 04/14/20 15:03 Heparin 5,000 Units/Ml Vial SC Not Given TID CATHIE Pantoprazole Sodium 40 mg 04/10/20 09:00 04/14/20 13:25 Pantoprazole 40 Mg Tab PO 40 mg DAILY CATHIE Administration Sacubitril/Valsartan 1 tab 04/13/20 21:00 04/14/20 13:23 Sacubitril 24mg/Valsartan 26mg Tab PO 1 tab BID CATHIE Administration Sodium Chloride 10 ml 04/09/20 11:30 04/09/20 16:13 Flush - Normal Saline 10 Ml Syringe IVF 10 ml Q12HR PRN Administration Saline Flush - Exam Eye: PERRL, anicteric sclera Heart: RRR, no gallops, no rubs, normal peripheral pulses, II/IV Respiratory: CTAB, no wheezes, no rales, no ronchi, normal chest expansion, no tachypnea Gastrointestinal: soft, non-tender, non-distended, normal bowel sounds, no palpable masses, no hepatomegaly Extremities: no cyanosis, no edema Hosp A/P (1) Acute on chronic systolic CHF (congestive heart failure) Code(s): I50.23 - ACUTE ON CHRONIC SYSTOLIC (CONGESTIVE) HEART FAILURE Status: Acute (2) Pulmonary edema Code(s): J81.1 - CHRONIC PULMONARY EDEMA Status: Acute Qualifiers: Chronicity: acute Qualified Code(s): J81.0 - Acute pulmonary edema (3) Generalized weakness Code(s): R53.1 - WEAKNESS Status: Chronic (4) ESRD (end stage renal disease) Code(s): N18.6 - END STAGE RENAL DISEASE Status: Chronic (5) HLD (hyperlipidemia) Code(s): E78.5 - HYPERLIPIDEMIA, UNSPECIFIED Status: Chronic (6) HTN (hypertension) Code(s): I10 - ESSENTIAL (PRIMARY) HYPERTENSION Status: Chronic (7) Volume overload Code(s): E87.70 - FLUID OVERLOAD, UNSPECIFIED Status: Acute (8) COPD (chronic obstructive pulmonary disease) Status: Chronic (9) GI bleed Code(s): K92.2 - GASTROINTESTINAL HEMORRHAGE, UNSPECIFIED Status: Acute (10) Acute respiratory failure with hypoxemia Code(s): J96.01 - ACUTE RESPIRATORY FAILURE WITH HYPOXIA Status: Acute - Plan * Acute systolic heart failure- better compensated. She has been started on Entresto. She will also be evaluated for a LifeVest * Melena- resolved- continue PPI ( conservative management ) * HTN- blood pressure is stable * ESRD- continue dialysis as per Nephrology * COPD-with exacerbation- stable
--- NOTE | 2020-04-14 20:09 | PRG ---
DATE OF SERVICE: 04/14/2020 OBJECTIVE: VITAL SIGNS: The patient noted with the following vital signs; afebrile, temperature 97.3, pulse 60, respiratory rate of 16, O2 saturations of 99%, blood pressure 122/60. HEENT: Unremarkable. CARDIOVASCULAR SYSTEM: First and second heart sounds were heard. RESPIRATORY SYSTEM: Clear to auscultation. DIGESTIVE SYSTEM: Revealed a benign abdomen. Positive bowel sounds. EXTREMITIES: No peripheral edema. SKIN: No new gross rash. LYMPHATIC: No peripheral lymphadenopathy. LABORATORY INVESTIGATION: Showed a hemoglobin of 8.3. Chemistry showed a creatinine of 6.34, BUN of 69. IMPRESSION: 1. End-stage renal disease. 2. Gastrointestinal bleed and anemia of chronic kidney disease. 3. Respiratory distress. PLAN: 1. The patient to be dialyzed today with ultrafiltration as tolerated by hemodynamics. The patient is on Monday, , Monday schedule. 2. Further management to be dependent on the clinical course. Job ID: [id number]
[2020-04-14] MEDS: Atorvastatin Calcium 20 MG TAB PO SCH (21:07)
[2020-04-15 05:05] LABS: Anion Gap 18 mmol/L (10-20); BUN (Urea Nitrogen) 43 mg/dL (9.8-20.1); Calc. Creatinine Clearance 11 mL/min (70-130); Calcium 6.8 mg/dL (7.8-10.44); Carbon Dioxide 23 mmol/L (23-31); Chloride 100 mmol/L (98-107); Glucose 144 mg/dL (83-110); Potassium 4.4 mmol/L (3.5-5.1); Sodium 137 mmol/L (136-145)
[2020-04-15] MEDS: Carvedilol 25 MG TAB PO SCH (08:56)
[2020-04-15] MEDS: Aspirin 81 mg Enteric Coated Tablet PO SCH (08:56)
[2020-04-15] MEDS: Heparin 5,000 UNITS/ML VIAL SC SCH (09:38)
--- NOTE | 2020-04-15 10:31 | PDOC.HOSPP ---
- Subjective Encounter Date: 04/15/20 Encounter Time: 10:30 Subjective: Ms. Harrell was seen today in follow-up of New systolic heart failure. She does not have any complaints. She has been fitting for the life vest. - Objective Vital Signs & Weight: Vital Signs (12 hours) Temp Pulse Resp BP Pulse Ox 04/15/20 07:32 98.5 F 64 15 143/63 H 97 04/15/20 06:57 63 14 04/15/20 03:15 98.4 F 64 16 111/53 L 96 04/14/20 23:02 61 16 98 Weight Weight 130 lb 7 oz I&O: 04/14/20 04/15/20 04/16/20 06:59 06:59 06:59 Intake Total 480 Output Total 100 Balance 380 Result Diagrams: 04/14/20 04:07 04/15/20 04:17 Hospitalist ROS - Medication Medications: Active Medications Generic Name Dose Route Start Last Admin Trade Name Freq PRN Reason Stop Dose Admin Albuterol/Ipratropium 3 ml 04/09/20 19:00 04/15/20 06:57 Ipratropium/Albuterol Sulfate 3 Ml Neb NEB 3 ml [id number] CATHIE Administration Aspirin 81 mg 04/10/20 09:00 04/15/20 08:56 Aspirin 81 Mg Enteric Coated Tablet PO 81 mg DAILY CATHIE Administration Atorvastatin Calcium 20 mg 04/10/20 21:00 04/14/20 21:07 Atorvastatin Calcium 20 Mg Tab PO 20 mg HS CATHIE Administration Carvedilol 25 mg 04/10/20 09:00 04/15/20 08:56 Carvedilol 25 Mg Tab PO 25 mg BID CATHIE Administration Heparin Sodium (Porcine) 5,000 units 04/09/20 15:00 04/15/20 09:38 Heparin 5,000 Units/Ml Vial SC 5,000 units TID CATHIE Administration Pantoprazole Sodium 40 mg 04/10/20 09:00 04/15/20 08:56 Pantoprazole 40 Mg Tab PO 40 mg DAILY CATHIE Administration Sacubitril/Valsartan 1 tab 04/13/20 21:00 04/15/20 08:56 Sacubitril 24mg/Valsartan 26mg Tab PO 1 tab BID CATHIE Administration Sodium Chloride 10 ml 04/09/20 11:30 04/09/20 16:13 Flush - Normal Saline 10 Ml Syringe IVF 10 ml Q12HR PRN Administration Saline Flush - Exam Eye: PERRL, anicteric sclera Heart: RRR, no gallops, no rubs, murmur present, II/IV Respiratory: CTAB, no wheezes, no rales, no ronchi, normal chest expansion, no tachypnea Gastrointestinal: soft, non-tender, non-distended, normal bowel sounds, no palpable masses, no hepatomegaly Extremities: no cyanosis, 1+ LE edema Hosp A/P (1) Acute on chronic systolic CHF (congestive heart failure) Code(s): I50.23 - ACUTE ON CHRONIC SYSTOLIC (CONGESTIVE) HEART FAILURE Status: Acute (2) Pulmonary edema Code(s): J81.1 - CHRONIC PULMONARY EDEMA Status: Acute Qualifiers: Chronicity: acute Qualified Code(s): J81.0 - Acute pulmonary edema (3) Generalized weakness Code(s): R53.1 - WEAKNESS Status: Chronic (4) ESRD (end stage renal disease) Code(s): N18.6 - END STAGE RENAL DISEASE Status: Chronic (5) HLD (hyperlipidemia) Code(s): E78.5 - HYPERLIPIDEMIA, UNSPECIFIED Status: Chronic (6) HTN (hypertension) Code(s): I10 - ESSENTIAL (PRIMARY) HYPERTENSION Status: Chronic (7) Volume overload Code(s): E87.70 - FLUID OVERLOAD, UNSPECIFIED Status: Acute (8) COPD (chronic obstructive pulmonary disease) Status: Chronic (9) GI bleed Code(s): K92.2 - GASTROINTESTINAL HEMORRHAGE, UNSPECIFIED Status: Acute (10) Acute respiratory failure with hypoxemia Code(s): J96.01 - ACUTE RESPIRATORY FAILURE WITH HYPOXIA Status: Acute - Plan * Acute systolic heart failure-compensated * Melena- resolved- continue PPI ( conservative management ) * HTN- blood pressure is stable * ESRD- continue dialysis as per Nephrology * COPD-with exacerbation- stable * She has received the life vest. She has been cleared for discharge home.
--- NOTE | 2020-04-15 12:31 | PQF ---
CLINICAL DOCUMENTATION CLARIFICATION FORM: Dear Dr. Ross Date: 04/15/2020 Please exercise your independent, professional judgment in responding to the clarification form. Clinical indicators are provided on the bottom of this form for your review. Please check appropriate box(es) to clarify if the following diagnosis has been ruled in our ruled out: SEPSIS [ X ] Ruled in diagnosis [X ] Continue to treat [ ] Resolved [ ] Ruled out diagnosis [ ] Improving [ ] Cannot rule out diagnosis [ ] Other diagnosis [ ] Unable to determine In addition, please specify: Present on Admission (POA): [ X] Yes [ ] No [ ] Unable to determine For continuity of documentation, please document condition throughout progress notes and discharge summary. Thank You. To be completed by CDI/Coding staff for physician review: CLINICAL INDICATORS - SIGNS / SYMPTOMS / LABS / RESULTS AND LOCATION IN MR *ER Record: 04/09: VS BP 153/78, Temp 97.9, R 21, Pulse 101 Doctor Notes: Once pneumonia was found on chest x-ray, sepsis alert was activated and pt was given broad-spectrum antibiotics and judicious fluids. Pt is critically ill with sepsis due to pneumonia requiring broad-spectrum antibiotics. Dx: Pneumonia, Additional: Sepsis *H&P 04/09 ([facility]) ED Course: Lab done showed white count 7.9 neutrophils 87.2% Lactic acid 2.1 She was started on IV antibiotics for pneumonia *04/11 pn ([facility]) Plan: Acute respiratory failure- likely due to volume overload. COPD - possibly with exacerbation *04/12 pn ([facility]) Plan: Acute respiratory failure- from volume overload and COPD - much improved *04/15 PN ([facility]) A/P: Acute systolic heart failure-compensated. RISK FACTORS / RESULTS AND LOCATION IN MR H&P 04/09 ([facility]) HPI: 75 yo with known hx of COPD, asthma. PMH: ESRD, Cardiomyopathy. HTN. CAD TREATMENTS / RESULTS AND LOCATION IN MR *H&P 04/09 ([facility]) ED Course: She has been given Rocephin and azithromycin. 500 ml NS *04/12 pn ([facility]) Plan: COPD with exacerbation improving - can de-escalate antibiotics tomorrow *04/15 PN ([facility]) A/P: She has received the life vest. Thank you, Stephanie Fisher, RN, BSN [email or web address] This is a permanent part of the Medical Record [facility]
[2020-04-15 13:36] VITALS: BP 127/60; TEMP 98.1
--- NOTE | 2020-04-15 16:08 | PDOC.DS.DS ---
Provider - Provider Date of Admission: 04/09/20 10:17 Date of Discharge: 04/15/20 Admitting Provider: Angel Bonilla DO Consultations: Cardiology, Gastroentrology, Nephrology Primary Care Physician: Bridger Ivey MD Course - Hospital Course Hospital Course: Ms. Chen is a 75-year-old female that has a history of COPD as well as end- stage renal disease on hemodialysis. She presented to the emergency room complaining of shortness of breath and wheezing. She had been to the emergency room recently had been prescribed albuterol on inhaler as well as nebulizers however she did not get much relief. For this reason she returned to the e mergency room. In the ER she had a CT scan done of the chest which was suspicious for volume overload given that she had enlargement of her heart as well as bilateral pulmonary infiltrates. There was also some question of possible pneumonia as well. She was admitted and started on IV antibiotics. Her coding consultant was consulted for hemodialysis and she did have the removal of additional fluid with the hemodialysis treatment. With these interventions she did have some improvement in her symptoms. An echocardiogram was also ordered. It was determined that her ejection fraction was much reduced compared to her previous echo for this reason cardiology was consulted. She was taken off of a mlodipine and placed on Entresto. By this time she was clinically much improved. Due to her low ejection fraction she was evaluated for a LifeVest and the LifeVest was placed prior to her discharge. Her hospital stay was complicated by an episode of bright red blood per rectum. Her psychologist personnel was consulted. Since she had recent upper as well as lower endoscopy it was felt that this was not needed to be repeated. On her previous endoscopy she was found to have gastric as well as colon polyps and some ulcerations which were thought to be ischemic. It was felt the best course of treatment would be conservative with Protonix. At the time of discharge the patient was clinically stable she had been ambulating without any difficulty not requiring any supplemental oxygen. She tolerated the initiation of Entresto and as such will be discharged home and then to have early follow-up with Dr. Guadalupe who is her regular electric sign wirer and with her primary care physician in 1 to 2 weeks Pertinent Studies: CT Scan of the chest Echocardiogram Resuscitation Status: 04/09/20 11:30 Resuscitation Status Routine Co-Sign Provider: Resuscitation Status: FULL: Full Resuscitation - Labs Lab Results: 04/14/20 04:07 04/15/20 04:17 Abnormal Lab Results - Last 48 hrs 04/14/20 04:07: Hgb 8.3 L, Hct 24.6 L 04/14/20 09:55: Sodium 134 L, Chloride 97 L, Carbon Dioxide 19 L, Anion Gap 22 H, BUN 69 H, Creatinine 6.34 H, Calcium 6.9 L 04/15/20 04:17: BUN 43 H, Creatinine 4.28 H, Calcium 6.8 L Microbiology - Entire Visit 04/09/20 10:24 Venous blood - Right Hand Blood Culture - Final NO GROWTH IN 5 DAYS 04/09/20 10:24 Venous blood - Right Arm Blood Culture - Final NO GROWTH IN 5 DAYS 04/11/20 13:46 Sputum Respiratory Culture - Final 04/12/20 14:38 Stool - Final 04/09/20 Unknown Nasopharyngeal swab Respiratory Virus Panel (PCR) - Final - Physical Exam Vitals: Vital Signs (12 hours) Temp Pulse Resp BP Pulse Ox 04/15/20 12:10 98.1 F 68 15 127/60 98 04/15/20 07:32 98.5 F 64 15 143/63 H 97 04/15/20 06:57 63 14 Weight Weight 130 lb 7 oz Physical Exam: The patient was seen and examined on the day of discharge. Problem - Problem (1) Acute on chronic systolic CHF (congestive heart failure) Code(s): I50.23 - ACUTE ON CHRONIC SYSTOLIC (CONGESTIVE) HEART FAILURE Status: Acute (2) Pulmonary edema Code(s): J81.1 - CHRONIC PULMONARY EDEMA Status: Acute Qualifiers: Chronicity: acute Qualified Code(s): J81.0 - Acute pulmonary edema (3) Generalized weakness Code(s): R53.1 - WEAKNESS Status: Chronic (4) ESRD (end stage renal disease) Code(s): N18.6 - END STAGE RENAL DISEASE Status: Chronic (5) HLD (hyperlipidemia) Code(s): E78.5 - HYPERLIPIDEMIA, UNSPECIFIED Status: Chronic (6) HTN (hypertension) Code(s): I10 - ESSENTIAL (PRIMARY) HYPERTENSION Status: Chronic (7) Volume overload Code(s): E87.70 - FLUID OVERLOAD, UNSPECIFIED Status: Acute (8) COPD (chronic obstructive pulmonary disease) Status: Chronic (9) GI bleed Code(s): K92.2 - GASTROINTESTINAL HEMORRHAGE, UNSPECIFIED Status: Acute (10) Acute respiratory failure with hypoxemia Code(s): J96.01 - ACUTE RESPIRATORY FAILURE WITH HYPOXIA Status: Acute Plan - Discharge Medications Prescriptions: Sacubitril/Valsartan [Entresto 24 mg-26 mg Tablet] 1 tab PO BID #60 tab Home Medications: Medication Instructions Recorded Confirmed Type Carvedilol [Coreg] 25 mg PO BID 05/27/14 04/09/20 History Aspirin [Aspirin EC] 81 mg PO DAILY #0 tablet. 05/30/14 04/09/20 Rx Atorvastatin Calcium 20 mg PO HS 10/02/15 04/09/20 History B Complex W-C No.20/Folic Acid 1 cap PO DAILY 07/22/19 04/09/20 History [Renal Caps Softgel] Diphenoxylate HCl/Atropine 1 tab PO BID PRN 07/22/19 04/09/20 History [Lomotil] Ipratropium/Albuterol Sulfate 3 ml NEB QID PRN 07/22/19 04/09/20 History [DuoNeb] Pantoprazole [Protonix] 40 mg PO DAILY 07/22/19 04/09/20 History Sacubitril/Valsartan [Entresto 24 1 tab PO BID #60 tab 04/15/20 Rx mg-26 mg Tablet] Allergies: shellfish derived Allergy (Severe, Verified 07/22/19 16:11) Short of Breath SWELLING, HIVES ondansetron HCl [From Zofran] Allergy (Unknown, Verified 07/22/19 16:11) med listed as allergy on dc profile and mi admit orders iodine Adverse Reaction (Severe, Verified 07/22/19 16:11) Short of Breath SWELLING, HIVES - Discharge Instructions Activity:: Activity as Tolerated Nourishment:: Heart Healthy Diet, Renal Diet - Follow up Plan Referrals: Michele Carrington MD [Active] - 2-3 Weeks (Follow up outpt for appointment and hep C treatment. Call the office to schedule an appointment.) Virgilio Ronquillo MD [Active] - (Plesae follow up with usual dialysis schedule, Monday, , Monday. Call for questions.) Bridger Ivey MD [Primary Care Provider] - 7 Days (Please follow up with your primary care provider in 7days. Call the office to schedule an appointment.) Lawson Cabral MD [Active] - 2-3 Weeks (Please follow up with your electric sign wirer in 2-3weeks. Call the office to schedule an appointment.) Disposition: HOME Quality - Care Measures CORE MEASURES:: N/A
--- NOTE | 2020-04-15 19:31 | PRG ---
DATE OF SERVICE: 04/15/2020 OBJECTIVE: VITAL SIGNS: The patient noted with the following vital signs. Afebrile, temperature 98.1, pulse 68, respiratory rate 15, O2 saturation of 98%, and blood pressure 127/60. HEENT: Unremarkable. CARDIOVASCULAR SYSTEM: First and second heart sounds were heard. RESPIRATORY SYSTEM: Clear to auscultation. DIGESTIVE SYSTEM: Revealed a benign abdomen with positive bowel sounds. EXTREMITIES: No peripheral edema. SKIN: No new gross rash. LYMPHATICS: No peripheral lymphadenopathy. IMPRESSION: 1. End-stage renal disease, hemodialysis dependent. 2. Respiratory distress, much improved. PLAN: 1. The patient was dialyzed yesterday. 2. No indication for renal replacement/hemodialysis today. 3. Further management to be dependent on the clinical course. The patient possibly to be discharged today. Job ID: [id number]
== END 2020-04-15 13:38 | disposition home or self-care (01) | DRG 871 ==
LOC: ERS 06:49 → ERHOLD 10:17 → T4-B 15:35 → 2NO 04-13 09:12
PROVIDERS: ADMIT Family Medicine; ATTEND Internal Medicine
DX: A41.9 Sepsis, unspecified organism (principal); N18.6 End stage renal disease; I50.23 Acute on chronic systolic (congestive) heart failure; J96.01 Acute respiratory failure with hypoxia; J18.9 Pneumonia, unspecified organism; I13.2 Hypertensive heart and chronic kidney disease with heart failure and with stage 5 chronic kidney disease, or end stage renal disease; J44.0 Chronic obstructive pulmonary disease with (acute) lower respiratory infection; K92.2 Gastrointestinal hemorrhage, unspecified; J44.1 Chronic obstructive pulmonary disease with (acute) exacerbation; I42.8 Other cardiomyopathies; E78.5 Hyperlipidemia, unspecified; I25.10 Atherosclerotic heart disease of native coronary artery without angina pectoris; K21.9 Gastro-esophageal reflux disease without esophagitis; R77.8 Other specified abnormalities of plasma proteins; E87.70 Fluid overload, unspecified; M19.90 Unspecified osteoarthritis, unspecified site; D63.1 Anemia in chronic kidney disease; Z20.828 Contact with and (suspected) exposure to other viral communicable diseases; Z99.2 Dependence on renal dialysis; Z88.6 Allergy status to analgesic agent; Z91.013 Allergy to seafood; Z79.899 Other long term (current) drug therapy; Z79.82 Long term (current) use of aspirin; Z90.49 Acquired absence of other specified parts of digestive tract; Z90.710 Acquired absence of both cervix and uterus; I25.2 Old myocardial infarction; Z79.51 Long term (current) use of inhaled steroids; Z98.49 Cataract extraction status, unspecified eye; Z86.73 Personal history of transient ischemic attack (TIA), and cerebral infarction without residual deficits
CPT/HCPCS: 0240U; 36415; 71045; 71250; 80048; 80053; 82270; 82553; 83605; 83735; 83880; 84145; 84484; 85014; 85018; 85025; 85379; 86140; 87040; 87070; 87205; 87633; 90935; 93005; 93306; 94640; 94664; 96365; 96375; G0257; J0456; J0696; J1644; J2920; J2930; J3490; J7050; J7620; S0028

== ENCOUNTER 2020-06-02 06:41 | Inpatient (IN) | payer MEDICARE, MEDICAID ==
[2020-06-02 07:32] LABS: #Eosinphils 0.1 thou/uL (0.0-0.7); #Lymphocytes 1.4 thou/uL (1.20-3.40); #Monocytes 0.3 thou/uL (0.11-0.59); #Neutrophils 3.1 thou/uL (1.40-6.50); %Basophils 0.4 % (0.0-1.0); %Eosinophils 1.8 % (0.0-10.0); %Lymphocytes 28.7 % (21.0-51.0); %Neutrophils 63.2 % (42.0-75.0); Hemoglobin 11.3 g/dL (12.0-16.0); Mean Corpuscular HGB CONC 31.8 g/dL (32.0-36.0); Mean Corpuscular Hemoglobin 28.3 pg (27.0-31.0); Mean Platelet Volume 7.6 fL (7.4-10.4); Platelet Count 179 thou/uL (130-400); RBC Distribution Width 17.7 % (11.5-14.5); White Blood Cell (WBC) Count 4.8 thou/uL (4.8-10.8)
[2020-06-02 07:49] LABS: ALT (SGPT) 11 U/L (8-55); AST (SGOT) 23 U/L (5-34); Albumin 3.7 g/dL (3.4-4.8); Alkaline Phosphatase 97 U/L (40-110); Anion Gap 22 mmol/L (10-20); BUN (Urea Nitrogen) 59 mg/dL (9.8-20.1); Bilirubin, Total 0.6 mg/dL (0.2-1.2); Calc. Creatinine Clearance 0 mL/min (70-130); Calcium 8.8 mg/dL (7.8-10.44); Carbon Dioxide 21 mmol/L (23-31); Chloride 103 mmol/L (98-107); Globulin 3.2 g/dL (2.4-3.5); Glucose 149 mg/dL (83-110); Magnesium 2.2 mg/dL (1.6-2.6); Potassium 4.7 mmol/L (3.5-5.1); Protein, Total 6.9 g/dL (5.8-8.1); Sodium 141 mmol/L (136-145)
--- NOTE | 2020-06-02 07:49 | RAD ---
EXAM: Single view of the chest HISTORY: Wheezing and dyspnea COMPARISON: 04/09/2020 FINDINGS: Single view of the chest shows an enlarged but stable cardiomediastinal silhouette. Athero sclerotic calcifications are seen in the aorta. Bibasilar opacities are seen which represent atelectasis or infiltrates. Degenerative changes are seen in the spine. IMPRESSION: Bibasilar atelectasis versus infiltrates
[2020-06-02 08:18] LABS: Bilirubin Negative (Negative); Blood, Urine Negative (Negative); Clarity Clear (Clear); Glucose, Urine (Dipstick) Normal (Negative); Ketone, Urine Negative (Negative); Leukocyte Negative Leu/uL (Negative); Nitrite Negative (Negative); Protein, Urine (Dipstick) 300 mg/dL (Neg-Trace); RBC/HPF 0-3 HPF (0-3); Specific Gravity, Urine 1.013 (1.002-1.036); Urobilinogen Normal mg/dL (Less than 2); WBC/HPF 0-3 HPF (0-3); pH, Urine 8.5 (5.0-9.0)
[2020-06-02 08:22] LABS: Bacteria/HPF 1+ HPF (None Seen)
[2020-06-02] MEDS ORDERED: Furosemide 40 MG/4 ML VIAL ONE (09:02)
[2020-06-02] MEDS ORDERED: Nitroglycerin 2% Ointment 1 INCH/1 GM Packet ONE (09:02)
[2020-06-02] MEDS ORDERED: Aspirin Chewable 81 MG TAB ONE (09:02)
[2020-06-02 09:33] LABS: CKMB 2.2 ng/mL (0-6.6)
[2020-06-02] MEDS ORDERED: Senokot S 8.6-50 MG TAB PO PRN (09:57)
[2020-06-02] MEDS ORDERED: Acetaminophen 325 MG TAB PO PRN (09:57)
[2020-06-02] MEDS ORDERED: hydrALAZINE 20 MG/ML VIAL SLOW IVP PRN (10:19)
--- NOTE | 2020-06-02 10:37 | PDOC.HHP ---
Hospitalist NAKIA LOZADA History of Present Illness: Patient is 75-year-old female with PMH of chronic systolic CHF, CAD, HTN, HLD, COPD, ESRD (on HD ), and chronic anemia who presents to the ED with shortness of breath that started last night. Patient states the shortness of breath woke her up last night. She also reports orthopnea and mild wheezing. She denies chest pain or cough. She did not miss any dialysis and her last session was on 05/30/2020. Patient was admitted here in 03/2020 for CHF exacerbation. Echo done at that time showed EF: 30-35%, patient was discharged with LifeVest. ED Course: Per report Spo2: 88% on RA. Initial BP was elevated but improved with Nitro paste. Patient received 6 puffs of albuterol and a dose of 125 mg iv solumedrol by EMS. CXR showed bibasilar atelectasis versus infiltrate. Lasix 40 mg iv x1 was given in the ED. Allergies/Adverse Reactions: Allergy/AdvReac Type Severity Reaction Status Date / Time shellfish derived Allergy Severe Short of Verified 07/22/19 16:11 Breath ondansetron HCl [From Zofran] Allergy Unknown Verified 07/22/19 16:11 iodine AdvReac Severe Short of Verified 07/22/19 16:11 Breath Home Medications: Medication Instructions Recorded Confirmed Type Carvedilol [Coreg] 25 mg PO BID 05/27/14 06/02/20 History Aspirin [Aspirin EC] 81 mg PO DAILY #0 tablet. 05/30/14 06/02/20 Rx Atorvastatin Calcium 40 mg PO HS 10/02/15 06/02/20 History B Complex W-C No.20/Folic Acid 1 cap PO DAILY 07/22/19 06/02/20 History [Renal Caps Softgel] Ipratropium/Albuterol Sulfate 3 ml NEB QID PRN 07/22/19 06/02/20 History [DuoNeb] Pantoprazole [Protonix] 40 mg PO DAILY 07/22/19 06/02/20 History Sacubitril/Valsartan [Entresto 24 1 tab PO BID #60 tab 04/15/20 06/02/20 Rx mg-26 mg Tablet] ALButerol Sulfate [Ventolin Neb] 1 puff INH Q4HR PRN 06/02/20 06/02/20 History Albuterol Sulfate [Proair HFA] 2 puff INH Q4HR PRN 06/02/20 06/02/20 History Amlodipine [Norvasc] 10 mg PO DAILY 06/02/20 06/02/20 History B,C/Folic/Zinc/Selenometh/D3/E 1 tab PO DAILY 06/02/20 06/02/20 History [Renaplex-D Tablet] Glecaprevir/Pibrentasvir [Mavyret 3 tab PO DAILY 06/02/20 06/02/20 History 100-40 mg Tablet] Mometasone/Formoterol 100/5 1 puff INH BID 06/02/20 06/02/20 History [Dulera 100 mcg/5 mcg Inhaler] traMADol HCl [Tramadol HCl] 50 mg PO Q8HR PRN 06/02/20 06/02/20 History Amoxicillin/Potassium Clav 1 each PO Q12H #10 tablet 06/05/20 Rx [Augmentin 875-125 Tablet] predniSONE 20 mg PO ASDIR #16 tab 06/05/20 Rx Past History: PMHx: Chronic systolic CHF (LifeVest in place), ESRD (on HD //), COPD, CAD, HLD PSH: appendectomy, hysterectomy, Right elbow/Right humerus surgery FHx: Mother: Asthma Social: she denies alcohol, or drug use. Denies smoking Hospitalist HPI ROS Constitutional: denies: fever, chills Eyes: denies: vision change ENT: denies: throat pain Respiratory: reports: shortness of breath. denies: cough Cardiovascular: reports: orthopnea, paroxysmal noc. dyspnea. denies: chest pain Gastrointestinal: denies: nausea, vomiting Genitourinary: denies: dysuria Skin: denies: rash Other: Negative for dizziness All other systems reviewed; all pertinent +/- noted in HPI/Subj Hospitalist Exam General Appearance: NAD Eye: PERRL ENT: moist mucosa Neck: JVD Heart: RRR, no murmur Respiratory: no wheezes Respiratory - other findings: bibasilar crackles Gastrointestinal: soft, non-tender, non-distended Extremities - other findings: trace edema on the LE bilaterally Skin: normal turgor Neurological: normal sensation to touch, no weakness Musculoskeletal: normal strength Psychiatric: normal affect, A&O x 3 Hospitalist Results Result Diagrams: 06/05/20 04:33 06/05/20 04:33 Lab results: Laboratory Last Values WBC 4.8 thou/uL (4.8-10.8) 06/02/20 07:24 RBC 4.00 mill/uL (4.20-5.40) L 06/02/20 07:24 Hgb 11.3 g/dL (12.0-16.0) L 06/02/20 07:24 Hct 35.6 % (36.0-47.0) L 06/02/20 07:24 MCV 89.0 fL (78.0-98.0) 06/02/20 07:24 MCH 28.3 pg (27.0-31.0) 06/02/20 07:24 MCHC 31.8 g/dL (32.0-36.0) L 06/02/20 07:24 RDW 17.7 % (11.5-14.5) H 06/02/20 07:24 Plt Count 179 thou/uL (130-400) 06/02/20 07:24 MPV 7.6 fL (7.4-10.4) 06/02/20 07:24 Neutrophils % 63.2 % (42.0-75.0) 06/02/20 07:24 Lymphocytes % 28.7 % (21.0-51.0) 06/02/20 07:24 Monocytes % 6.0 % (0.0-10.0) 06/02/20 07:24 Eosinophils % 1.8 % (0.0-10.0) 06/02/20 07:24 Basophils % 0.4 % (0.0-1.0) 06/02/20 07:24 Neutrophils # 3.1 thou/uL (1.40-6.50) 06/02/20 07:24 Lymphocytes # 1.4 thou/uL (1.20-3.40) 06/02/20 07:24 Monocytes # 0.3 thou/uL (0.11-0.59) 06/02/20 07:24 Eosinophils # 0.1 thou/uL (0.0-0.7) 06/02/20 07:24 Basophils # 0.0 thou/uL (0.0-0.2) 06/02/20 07:24 D-Dimer 0.51 *mcg/mL (0.27-0.43) H 06/02/20 07:24 Sodium 141 mmol/L (136-145) 06/02/20 07:24 Potassium 4.7 mmol/L (3.5-5.1) 06/02/20 07:24 Chloride 103 mmol/L (98-107) 06/02/20 07:24 Carbon Dioxide 21 mmol/L (23-31) L 06/02/20 07:24 Anion Gap 22 mmol/L (10-20) H 06/02/20 07:24 BUN 59 mg/dL (9.8-20.1) H 06/02/20 07:24 Creatinine 6.13 mg/dL (0.6-1.1) H 06/02/20 07:24 Estimated GFR (MDRD) 8 06/02/20 07:24 Glucose 149 mg/dL (83-110) H 06/02/20 07:24 Calcium 8.8 mg/dL (7.8-10.44) 06/02/20 07:24 Magnesium 2.2 mg/dL (1.6-2.6) 06/02/20 07:24 Total Bilirubin 0.6 mg/dL (0.2-1.2) 06/02/20 07:24 AST 23 U/L (5-34) 06/02/20 07:24 ALT 11 U/L (8-55) 06/02/20 07:24 Alkaline Phosphatase 97 U/L (40-110) 06/02/20 07:24 CK-MB (CK-2) 2.2 ng/mL (0-6.6) 06/02/20 07:24 Troponin I 0.061 ng/mL (< 0.028) H 06/02/20 07:24 B-Natriuretic Peptide 4451.3 pg/mL (0-100) H 06/02/20 07:24 Serum Total Protein 6.9 g/dL (5.8-8.1) 06/02/20 07:24 Albumin 3.7 g/dL (3.4-4.8) 06/02/20 07:24 Globulin 3.2 g/dL (2.4-3.5) 06/02/20 07:24 Albumin/Globulin Ratio 1.2 g/dL (1.2-2.2) 06/02/20 07:24 Urine Color Light-Yellow (Yellow) 06/02/20 08:03 Urine Clarity Clear (Clear) 06/02/20 08:03 Urine pH 8.5 (5.0-9.0) 06/02/20 08:03 Ur Specific [place] 1.013 (1.002-1.036) 06/02/20 08:03 Urine Protein 300 mg/dL (Neg-Trace) A 06/02/20 08:03 Urine Glucose (UA) Normal mg/dL (Negative) 06/02/20 08:03 Urine Ketones Negative mg/dL (Negative) 06/02/20 08:03 Urine Blood Negative (Negative) 06/02/20 08:03 Urine Nitrite Negative (Negative) 06/02/20 08:03 Urine Bilirubin Negative (Negative) 06/02/20 08:03 Urine Urobilinogen Normal mg/dL (Less than 2) 06/02/20 08:03 Ur Leukocyte Esterase Negative Mikki/uL (Negative) 06/02/20 08:03 Urine RBC 0-3 HPF (0-3) 06/02/20 08:03 Urine WBC 0-3 HPF (0-3) 06/02/20 08:03 Ur Squamous Epith Cells 4-6 HPF (0-3) A 06/02/20 08:03 Urine Bacteria 1+ HPF (None Seen) A 06/02/20 08:03 Chest x-ray Status: image reviewed by [facility] EKG Status: image reviewed by [facility] Hospitalist H&P A/P (1) Acute respiratory failure with hypoxia Code(s): J96.01 - ACUTE RESPIRATORY FAILURE WITH HYPOXIA Status: Acute Assessment and Plan: Likely secondary to CHF exasperation. Plan: -O2 supplement as needed -nephrology consulted to assist with HD (2) Acute on chronic systolic CHF (congestive heart failure) Code(s): I50.23 - ACUTE ON CHRONIC SYSTOLIC (CONGESTIVE) HEART FAILURE Status: Chronic Assessment and Plan: patient has signs and symptoms of CHF exacerbation. Recent Echo showed EF: 30- 35%. Plan: -O2 supplement as needed -strict I&O, low salt diet -nephrology consulted for HD -cont home meds (3) COPD exacerbation Code(s): J44.1 - CHRONIC OBSTRUCTIVE PULMONARY DISEASE W (ACUTE) EXACERBATION Status: Acute Assessment and Plan: Improved significantly with breathing treatment and steroid. Plan: -Solumedrol and Duoneb for now (4) Elevated troponin Code(s): R77.8 - OTHER SPECIFIED ABNORMALITIES OF PLASMA PROTEINS Status: Chronic Assessment and Plan: patient has chronic elevated troponin level, likely associated with her ESRD. She denies chest pain. Plan: -trend troponin (5) ESRD (end stage renal disease) Code(s): N18.6 - END STAGE RENAL DISEASE Status: Chronic Assessment and Plan: She is on HD (/) Plan: -nephrology consulted (6) HTN (hypertension) Code(s): I10 - ESSENTIAL (PRIMARY) HYPERTENSION Status: Chronic Assessment and Plan: BP initially elevated, now improved Plan: -cont home meds Plan: Code status: patient would like to be Full code.
[2020-06-02 10:48] LABS: SARS-CoV-2 NAA Rapid Test Not Detected (NotDetected)
[2020-06-02 11:05] LABS: Troponin I 0.043 ng/mL (< 0.028)
[2020-06-02] MEDS ORDERED: methylPREDNISolone Sod Succ 40 MG VIAL IVP SCH ×2 (12:00→15:30)
[2020-06-02 14:28] LABS: Troponin I 0.046 ng/mL (< 0.028)
[2020-06-02] MEDS ORDERED: Albuterol Sulfate 2.5 mg/3 ml Neb NEB PRN (15:27)
[2020-06-02 16:33] VITALS: BMI 23.8
[2020-06-02] MEDS: methylPREDNISolone Sod Succ 40 MG VIAL IVP SCH ×2 (16:55→21:03)
--- NOTE | 2020-06-02 19:46 | CON ---
DATE OF CONSULTATION: REQUESTING PHYSICIAN: ER physician and Dr. Tracy. REASON FOR CONSULTATION: Need for maintenance hemodialysis. IMPRESSION: 1. End-stage renal disease, on hemodialysis, Monday, , Monday . Therefore, due for dialysis today. 2. Respiratory distress in the context of possible #3. 3. Asthmatic attack. PLAN: 1. The patient to be dialyzed today with ultrafiltration as tolerated by hemodynamics. 2. Nebulizer and steroid treatments for the patient's history of asthma. 3. Further management to be dependent on the clinical course. HISTORY: A 75-year-old female patient with end-stage renal disease, on Monday, , Monday scheduled dialysis; congestive heart failure; coronary artery disease; hypertension; dyslipidemia, who presented here with worsening shortness of breath. As a result of the need for maintenance hemodialysis, though the patient does not have any evidence of fluid overload, decision has been taken to involve Ren[facility] in the management of this case. PAST MEDICAL HISTORY: As documented in the body of the history. MEDICATIONS: Reviewed and as documented on [employer]. FAMILY HISTORY: Not significantly related to present illness except the mother who had asthma. SOCIAL HISTORY: No alcohol. No tobacco. No illicit drug use. REVIEW OF SYSTEMS: As documented in the body of the history. All the other systems were reviewed and found not to be significantly related to present illness. PHYSICAL EXAMINATION: GENERAL: The patient was found to be in respiratory distress. VITAL SIGNS: Noted with the following vital signs; afebrile, temperature 98.1, pulse 96, respiratory rate of 22, O2 saturations of 97%, blood pressure 148/85. HEENT: Unremarkable. CARDIOVASCULAR SYSTEM: First and second heart sounds were heard. RESPIRATORY SYSTEM: Revealed wheeze and rhonchi. DIGESTIVE SYSTEM: Revealed a benign abdomen with positive bowel sounds. EXTREMITIES: No peripheral edema. SKIN: No new gross rash. LYMPHATICS: No peripheral lymphadenopathy. SUMMARY: A 75-year-old female patient with end-stage renal disease, who presented here with obvious signs of asthmatic attack. Thank you for this consultation. We will follow with you. Job ID: [id number]
[2020-06-02] MEDS: Atorvastatin Calcium 20 MG TAB PO SCH (21:02)
[2020-06-02] MEDS: Bacteriostatic Water 30 ML VIAL FS PRN (21:03)
[2020-06-03 05:04] LABS: #Lymphocytes 0.5 thou/uL (1.20-3.40); #Monocytes 0.2 thou/uL (0.11-0.59); #Neutrophils 1.3 thou/uL (1.40-6.50); %Basophils 0.3 % (0.0-1.0); %Eosinophils 0.2 % (0.0-10.0); %Lymphocytes 26.9 % (21.0-51.0); %Monocytes 7.8 % (0.0-10.0); %Neutrophils 64.9 % (42.0-75.0); Hemoglobin 10.3 g/dL (12.0-16.0); Mean Corpuscular HGB CONC 32.1 g/dL (32.0-36.0); Mean Corpuscular Hemoglobin 28.3 pg (27.0-31.0); Mean Corpuscular Volume 88.2 fL (78.0-98.0); Mean Platelet Volume 7.9 fL (7.4-10.4); Platelet Count 156 thou/uL (130-400); RBC Distribution Width 17.3 % (11.5-14.5); Red Blood Cell (RBC) Count 3.63 mill/uL (4.20-5.40)
[2020-06-03] MEDS: methylPREDNISolone Sod Succ 40 MG VIAL IVP SCH ×4 (05:05→21:18)
[2020-06-03 05:24] LABS: Anion Gap 16 mmol/L (10-20); BUN (Urea Nitrogen) 34 mg/dL (9.8-20.1); Calc. Creatinine Clearance 11 mL/min (70-130); Calcium 8.3 mg/dL (7.8-10.44); Carbon Dioxide 28 mmol/L (23-31); Chloride 97 mmol/L (98-107); Glucose 176 mg/dL (83-110); Potassium 4.9 mmol/L (3.5-5.1); Sodium 136 mmol/L (136-145)
--- NOTE | 2020-06-03 08:12 | PDOC.HOSPP ---
- Subjective Encounter Date: 06/03/20 Subjective: Patient states she had SOB last night that improved with breathing treatment. She reports KAUFMAN. Denies cough or wheezing. - Objective Vital Signs & Weight: Vital Signs (12 hours) Temp Pulse Resp BP Pulse Ox 06/03/20 07:45 97 20 96 06/03/20 07:43 96 06/03/20 04:00 98.4 F 95 18 144/74 H 96 06/03/20 02:22 97 16 97 06/02/20 23:58 98.3 F 72 16 124/73 95 06/02/20 20:45 98.5 F 95 16 136/71 98 Weight Weight 126 lb 8 oz I&O: 06/02/20 06/03/20 06/04/20 06:59 06:59 06:59 Intake Total 942 Balance 942 Result Diagrams: 06/05/20 04:33 06/05/20 04:33 Hospitalist ROS - Review of Systems Respiratory: reports: SOB with excertion. denies: wheezing Cardiovascular: denies: chest pain - Medication Medications: Active Medications Generic Name Dose Route Start Last Admin Trade Name Freq PRN Reason Stop Dose Admin Albuterol/Ipratropium 3 ml 06/02/20 19:00 06/03/20 07:45 Ipratropium/Albuterol Sulfate 3 Ml Neb NEB 3 ml [id number] CATHIE Administration Atorvastatin Calcium 20 mg 06/02/20 21:00 06/02/20 21:02 Atorvastatin Calcium 20 Mg Tab PO 20 mg HS CATHIE Administration Methylprednisolone Sodium Succinate 40 mg 06/02/20 16:00 06/03/20 05:05 Methylprednisolone Sod Succ 40 Mg Vial IVP 40 mg 0400,1000,1600,2200 CATHIE Administration Sacubitril/Valsartan 1 tab 06/02/20 21:00 06/02/20 21:02 Sacubitril 24mg/Valsartan 26mg Tab PO 1 tab BID CATHIE Administration Sterile Water 1 ml 06/02/20 15:45 06/02/20 21:03 Bacteriostatic Water 30 Ml Vial FS 1 ml PRN PRN Administration RECONSTITUTION Hospitalist Exam Vitals: Vital Signs (12 hours) Temp Pulse Resp BP Pulse Ox 06/03/20 07:45 97 20 96 06/03/20 07:43 96 06/03/20 04:00 98.4 F 95 18 144/74 H 96 06/03/20 02:22 97 16 97 06/02/20 23:58 98.3 F 72 16 124/73 95 06/02/20 20:45 98.5 F 95 16 136/71 98 Weight Weight 126 lb 8 oz General Appearance: NAD ENT: moist mucosa Neck: JVD Heart: RRR, no murmur Respiratory - other findings: expiratory wheezing bilaterally, no respiratory distress Gastrointestinal: soft, non-tender Extremities - other findings: trace edema on the LE bilaterally Skin: normal turgor Psychiatric: normal affect Hosp A/P (1) Acute respiratory failure with hypoxia Code(s): J96.01 - ACUTE RESPIRATORY FAILURE WITH HYPOXIA Status: Acute Plan: Likely from COPD exacerbation than CHF exacerbation. Sop2 in the mid 's on 3L NC this morning, patient not on O2 supplement at home. Plan: -O2 supplement as needed -continue Solumedrol and Duoneb (2) COPD exacerbation Code(s): J44.1 - CHRONIC OBSTRUCTIVE PULMONARY DISEASE W (ACUTE) EXACERBATION Status: Acute Plan: She is still requiring O2 supplement. Plan: -continue Solumedrol and duoneb (3) Acute on chronic systolic CHF (congestive heart failure) Code(s): I50.23 - ACUTE ON CHRONIC SYSTOLIC (CONGESTIVE) HEART FAILURE Status: Chronic Plan: Patient appeared to have mild CHF exacerbation on admission. This ahs now significantly improved. Plan: -continue home meds -she is on HD T// (4) Elevated troponin Code(s): R77.8 - OTHER SPECIFIED ABNORMALITIES OF PLASMA PROTEINS Status: Chronic Plan: stable (5) ESRD (end stage renal disease) Code(s): N18.6 - END STAGE RENAL DISEASE Status: Chronic Plan: She had HD yesterday. Plan: -Nephrology following for HD need while inpatient (6) HTN (hypertension) Code(s): I10 - ESSENTIAL (PRIMARY) HYPERTENSION Status: Chronic Plan: -cont home meds
[2020-06-03] MEDS: Aspirin 81 mg Enteric Coated Tablet PO SCH (10:11)
--- NOTE | 2020-06-03 18:14 | PRG ---
DATE OF SERVICE: 06/03/2020 SUBJECTIVE: The patient seems to be doing much better. Noted with the following vital signs. OBJECTIVE: VITAL SIGNS: Afebrile. Temperature 98.5, pulse 99, respiratory rate of 20, O2 saturation of 100%, blood pressure 114/70. HEENT: Unremarkable. CARDIOVASCULAR SYSTEM: First and second heart sounds were heard. RESPIRATORY SYSTEM: Clear to auscultation. DIGESTIVE SYSTEM: Revealed a benign abdomen with positive bowel sounds. EXTREMITIES: No peripheral edema. SKIN: No new gross rash. LYMPHATICS: No peripheral lymphadenopathy. LABORATORY INVESTIGATION: Showed hemoglobin of 10.3. Chemistry showed a creatinine of 3.94, BUN of 34. IMPRESSION: 1. End-stage renal disease, on hemodialysis. 2. Respiratory distress in the context of asthmatic attack. 3. Congestive heart failure. PLAN: 1. The patient dialyzed yesterday and is doing well now. We will plan to dialyze this patient tomorrow first thing in the morning prior to discharge. 2. Further management to be dependent on the clinical course. Job ID: [id number]
[2020-06-03] MEDS: Atorvastatin Calcium 20 MG TAB PO SCH (21:18)
[2020-06-03] MEDS: Bacteriostatic Water 30 ML VIAL FS PRN (21:19)
[2020-06-04] MEDS: methylPREDNISolone Sod Succ 40 MG VIAL IVP SCH ×4 (05:18→21:17)
[2020-06-04 06:44] LABS: Anion Gap 23 mmol/L (10-20); BUN (Urea Nitrogen) 55 mg/dL (9.8-20.1); Calc. Creatinine Clearance 8 mL/min (70-130); Calcium 7.8 mg/dL (7.8-10.44); Carbon Dioxide 19 mmol/L (23-31); Chloride 91 mmol/L (98-107); Glucose 160 mg/dL (83-110); Potassium 5.5 mmol/L (3.5-5.1); Sodium 127 mmol/L (136-145)
[2020-06-04 07:38] LABS: Hemoglobin 10.5 g/dL (12.0-16.0); Mean Corpuscular HGB CONC 32.4 g/dL (32.0-36.0); Mean Corpuscular Hemoglobin 28.2 pg (27.0-31.0); Mean Platelet Volume 9.1 fL (7.4-10.4); Platelet Count 131 thou/uL (130-400); RBC Distribution Width 17.1 % (11.5-14.5); Red Blood Cell (RBC) Count 3.74 mill/uL (4.20-5.40); White Blood Cell (WBC) Count 2.9 thou/uL (4.8-10.8)
[2020-06-04 07:43] LABS: Band 2 % (5-11); Eosinophils 1 % (0-10); Lymphocytes 20 % (21-51); MDiff Complete? YES; Monocytes 4 % (0-10); Neutrophil 69 % (42-75); Platelet Morphology Comment Appears Adequate; Polychromasia SLIGHT = 2-3 cells (100X) (0-2/hpf); Reactive Lymphocytes 4 % (0-10); Target Cells SLIGHT = 2-5 cells (100X) (0-1/hpf)
--- NOTE | 2020-06-04 08:18 | PDOC.HOSPP ---
- Subjective Encounter Date: 06/04/20 Subjective: patient states she gets out of breath with walking. She also reports mild cough with some sputum. Denies wheezing. Nurse reports patient's Spo2 dropped to 70's on RA last night while walking to the bathroom. - Objective Vital Signs & Weight: Vital Signs (12 hours) Temp Pulse Resp BP BP Pulse Ox 06/04/20 07:38 89 25 H 92 L 06/04/20 04:24 98 06/04/20 03:45 98 F 93 24 H 146/74 H 146/74 H 91 L 06/04/20 00:03 98.2 F 90 22 H 141/67 H 93 L 06/03/20 23:56 98.2 F 90 22 H 141/67 H 93 L Weight Weight 131 lb 1.6 oz I&O: 06/03/20 06/04/20 06/05/20 06:59 06:59 06:59 Intake Total 942 1182 Balance 942 1182 Result Diagrams: 06/05/20 04:33 06/05/20 04:33 Hospitalist ROS - Review of Systems Respiratory: reports: cough, shortness of breath - Medication Medications: Active Medications Generic Name Dose Route Start Last Admin Trade Name Freq PRN Reason Stop Dose Admin Albuterol/Ipratropium 3 ml 06/02/20 19:00 06/04/20 07:38 Ipratropium/Albuterol Sulfate 3 Ml Neb NEB 3 ml [id number] CATHIE Administration Aspirin 81 mg 06/03/20 09:00 06/03/20 10:11 Aspirin 81 Mg Enteric Coated Tablet PO 81 mg DAILY CATHIE Administration Atorvastatin Calcium 20 mg 06/02/20 21:00 06/03/20 21:18 Atorvastatin Calcium 20 Mg Tab PO 20 mg HS CATHIE Administration Methylprednisolone Sodium Succinate 40 mg 06/02/20 16:00 06/04/20 05:18 Methylprednisolone Sod Succ 40 Mg Vial IVP 40 mg 0400,1000,1600,2200 CATHIE Administration Pantoprazole Sodium 40 mg 06/03/20 09:00 06/03/20 10:11 Pantoprazole 40 Mg Tab PO 40 mg DAILY CATHIE Administration Sacubitril/Valsartan 1 tab 06/02/20 21:00 06/03/20 21:17 Sacubitril 24mg/Valsartan 26mg Tab PO 1 tab BID CATHIE Administration Sterile Water 1 ml 06/02/20 15:45 06/03/20 21:19 Bacteriostatic Water 30 Ml Vial FS 1 ml PRN PRN Administration RECONSTITUTION Hospitalist Exam Vitals: Vital Signs (12 hours) Temp Pulse Resp BP BP Pulse Ox 06/04/20 07:38 89 25 H 92 L 06/04/20 04:24 98 06/04/20 03:45 98 F 93 24 H 146/74 H 146/74 H 91 L 06/04/20 00:03 98.2 F 90 22 H 141/67 H 93 L 06/03/20 23:56 98.2 F 90 22 H 141/67 H 93 L Weight Weight 131 lb 1.6 oz General Appearance: awake alert Eye: PERRL ENT: moist mucosa Neck: JVD Heart: RRR, no murmur Respiratory - other findings: expiratory wheezing bilaterally, some respiratory distress with excertion Gastrointestinal: soft, non-tender, non-distended Extremities: no edema Psychiatric: normal affect Hosp A/P (1) Acute respiratory failure with hypoxia Code(s): J96.01 - ACUTE RESPIRATORY FAILURE WITH HYPOXIA Status: Acute Plan: Likely from COPD exacerbation. Patient still requiring O2 supplement, currently on 2L NC. She has KAUFMAN. Plan: -continue Duoneb and current Solumedrol -will add ceftriaxone and azithromycin -patient will likely need O2 supplement when she is ready to be discharge. field nurse case manager consulted (2) COPD exacerbation Code(s): J44.1 - CHRONIC OBSTRUCTIVE PULMONARY DISEASE W (ACUTE) EXACERBATION Status: Acute Plan: -management as above (3) Chronic systolic CHF (congestive heart failure) Code(s): I50.22 - CHRONIC SYSTOLIC (CONGESTIVE) HEART FAILURE Status: Chronic Plan: stable Plan: -will have HD today (4) Elevated troponin Code(s): R77.8 - OTHER SPECIFIED ABNORMALITIES OF PLASMA PROTEINS Status: Chronic Plan: stable (5) ESRD (end stage renal disease) Code(s): N18.6 - END STAGE RENAL DISEASE Status: Chronic Plan: -HD scheduled for today (6) HTN (hypertension) Code(s): I10 - ESSENTIAL (PRIMARY) HYPERTENSION Status: Chronic Plan: plan: -cont home meds
[2020-06-04] MEDS: cefTRIAXone\\ROCEPHIN 1 GM in Sodium Chloride 0.9% 100 ML IVPB SCH (13:03)
[2020-06-04] MEDS: Aspirin 81 mg Enteric Coated Tablet PO SCH (13:08)
[2020-06-04] MEDS: Azithromycin 500 MG in Sodium Chloride 0.9% 250 ML 250 ML IVPB SCH (14:08)
--- NOTE | 2020-06-04 15:55 | PRG ---
DATE OF SERVICE: 06/04/2020 OBJECTIVE: VITAL SIGNS: The patient noted with the following vital signs; afebrile, temperature 98, pulse 89, respiratory rate of 25, blood pressure 142/74, O2 saturation of 98%. HEENT: Unremarkable. CARDIOVASCULAR SYSTEM: First and second heart sounds were heard. RESPIRATORY SYSTEM: Clear to auscultation. DIGESTIVE SYSTEM: Revealed a benign abdomen with positive bowel sounds. EXTREMITIES: No peripheral edema. SKIN: No new gross rash. LYMPHATICS: No peripheral lymphadenopathy. IMPRESSION: 1. End-stage renal disease, on hemodialysis, due for dialysis today. 2. Respiratory distress in the context of asthmatic attack/chronic obstructive pulmonary disease exacerbation. 3. Congestive heart failure. PLAN: 1. We will continue current renal supportive measures. 2. Further management to be dependent on the clinical course. Job ID: [id number]
[2020-06-04] MEDS: Atorvastatin Calcium 20 MG TAB PO SCH (21:16)
[2020-06-05] MEDS: methylPREDNISolone Sod Succ 40 MG VIAL IVP SCH (04:44)
[2020-06-05 05:26] LABS: #Lymphocytes 0.3 thou/uL (1.20-3.40); #Monocytes 0.3 thou/uL (0.11-0.59); #Neutrophils 1.4 thou/uL (1.40-6.50); %Eosinophils 0.4 % (0.0-10.0); %Lymphocytes 12.8 % (21.0-51.0); %Monocytes 14.8 % (0.0-10.0); Mean Corpuscular HGB CONC 33.9 g/dL (32.0-36.0); Mean Corpuscular Hemoglobin 30.2 pg (27.0-31.0); Mean Corpuscular Volume 89.2 fL (78.0-98.0); Mean Platelet Volume 7.8 fL (7.4-10.4); Platelet Count 134 thou/uL (130-400); RBC Distribution Width 16.9 % (11.5-14.5); Red Blood Cell (RBC) Count 3.29 mill/uL (4.20-5.40)
[2020-06-05 05:29] LABS: Anion Gap 17 mmol/L (10-20); BUN (Urea Nitrogen) 28 mg/dL (9.8-20.1); Calc. Creatinine Clearance 12 mL/min (70-130); Carbon Dioxide 24 mmol/L (23-31); Chloride 99 mmol/L (98-107); Glucose 185 mg/dL (83-110); Potassium 4.5 mmol/L (3.5-5.1); Sodium 135 mmol/L (136-145)
[2020-06-05] MEDS: Aspirin 81 mg Enteric Coated Tablet PO SCH (09:22)
[2020-06-05] MEDS: cefTRIAXone\\ROCEPHIN 1 GM in Sodium Chloride 0.9% 100 ML IVPB SCH (09:23)
[2020-06-05] MEDS: Azithromycin 500 MG in Sodium Chloride 0.9% 250 ML 250 ML IVPB SCH (10:25)
--- NOTE | 2020-06-05 15:34 | PRG ---
DATE OF SERVICE: 06/05/2020 OBJECTIVE: VITAL SIGNS: The patient noted with the following vital signs; afebrile, temperature 98.8, pulse 89 to 104 . HEENT: Unremarkable. CARDIOVASCULAR: First and second heart sounds were heard. RESPIRATORY SYSTEM: Clear to auscultation. DIGESTIVE SYSTEM: Revealed a benign abdomen. Positive bowel sounds. EXTREMITIES: No peripheral edema. SKIN: No new gross rash. LYMPHATICS: No peripheral lymphadenopathy. IMPRESSION: 1. End-stage renal disease, hemodialysis dependent, Monday, , Monday. 2. Chronic obstructive pulmonary disease/asthma exacerbation. PLAN: 1. Continue current management. 2. Further management will be dependent on the clinical course. Job ID: [id number]
[2020-06-05 17:23] VITALS: BP 166/86; TEMP 98.2
[2020-06-05] MEDS ORDERED: predniSONE 20 MG TAB PO SCH (17:45)
--- NOTE | 2020-06-05 17:54 | PDOC.DS.DS ---
Provider Date of Admission: 06/04/20 09:26 Date of Discharge: 06/05/20 Admitting Provider: Laura Tracy MD Consultations: Nephrology Primary Care Physician: Bridger Ivey MD Course Hospital Course: Discharge diagnosis: -Acute respiratory failure -COPD exacerbation Hospital course: Patient is 75-year-old female with PMH of chronic systolic CHF, CAD, HTN, HLD, COPD, ESRD (on HD //), and chronic anemia who presents to the ED with 2-days history of shortness of breath. Patient was treated with steroids, antibiotics, and breathing treatment. Patient improved significantly, was able to walk without respiratory distress or the need for oxygen on day of discharge. She also had 2 sessions of dialysis while inpatient. Patient states she lives alone, however she will stay either with her son or her sister after her discharge for now. Resuscitation Status: 06/02/20 09:57 Resuscitation Status Routine Resuscitation Status: FULL: Full Resuscitation Discussed with: patient Lab Results: 06/05/20 04:33 06/05/20 04:33 Abnormal Lab Results - Last 48 hrs 06/04/20 06:11: Sodium 127 L, Potassium 5.5 H, Chloride 91 L, Carbon Dioxide 19 L, Anion Gap 23 H, BUN 55 H, Creatinine 5.30 H 06/04/20 06:11: WBC 2.9 L, RBC 3.74 L, Hgb 10.5 L, Hct 32.6 L, RDW 17.1 H, Band Neuts % (Manual) 2 L, Lymphocytes % (Manual) 20 L 06/05/20 04:33: Sodium 135 L, BUN 28 H, Creatinine 3.46 H 06/05/20 04:33: WBC 2.0 L, RBC 3.29 L, Hgb 10.0 L, Hct 29.4 L, RDW 16.9 H, Lymphocytes % 12.8 L, Monocytes % 14.8 H, Lymphocytes # 0.3 L Vitals: Vital Signs (12 hours) Temp Pulse Resp BP Pulse Ox 06/05/20 16:55 98.2 F 100 16 166/86 H 95 06/05/20 12:40 97.4 F L 102 H 16 135/74 95 06/05/20 09:21 98.8 F 104 H 16 157/80 H 96 06/05/20 08:00 96 06/05/20 07:24 89 16 100 Weight Weight 125 lb Physical Exam: The patient was seen and examined on the day of discharge. General Appearance: NAD Eye: PERRL ENT: moist mucosa Respiratory: CTAB, no wheezes, no tachypnea Cardiovascular: RRR, no murmur Gastrointestinal: soft, non-tender, non-distended Extremities: no edema PSYCH: normal affect Problem (1) Acute respiratory failure with hypoxia Code(s): J96.01 - ACUTE RESPIRATORY FAILURE WITH HYPOXIA Status: Acute (2) COPD exacerbation Code(s): J44.1 - CHRONIC OBSTRUCTIVE PULMONARY DISEASE W (ACUTE) EXACERBATION Status: Acute (3) Elevated troponin Code(s): R77.8 - OTHER SPECIFIED ABNORMALITIES OF PLASMA PROTEINS Status: Chronic (4) ESRD (end stage renal disease) Code(s): N18.6 - END STAGE RENAL DISEASE Status: Chronic (5) HTN (hypertension) Code(s): I10 - ESSENTIAL (PRIMARY) HYPERTENSION Status: Chronic (6) Chronic systolic CHF (congestive heart failure) Code(s): I50.22 - CHRONIC SYSTOLIC (CONGESTIVE) HEART FAILURE Status: Chronic Plan Prescriptions: Amoxicillin/Potassium Clav [Augmentin 875-125 Tablet] 1 each PO Q12H #10 tablet predniSONE 20 mg PO ASDIR #16 tab Home Medications: Medication Instructions Recorded Confirmed Type Carvedilol [Coreg] 25 mg PO BID 05/27/14 06/02/20 History Aspirin [Aspirin EC] 81 mg PO DAILY #0 tablet. 05/30/14 06/02/20 Rx Atorvastatin Calcium 40 mg PO HS 10/02/15 06/02/20 History B Complex W-C No.20/Folic Acid 1 cap PO DAILY 07/22/19 06/02/20 History [Renal Caps Softgel] Ipratropium/Albuterol Sulfate 3 ml NEB QID PRN 07/22/19 06/02/20 History [DuoNeb] Pantoprazole [Protonix] 40 mg PO DAILY 07/22/19 06/02/20 History Sacubitril/Valsartan [Entresto 24 1 tab PO BID #60 tab 04/15/20 06/02/20 Rx mg-26 mg Tablet] ALButerol Sulfate [Ventolin Neb] 1 puff INH Q4HR PRN 06/02/20 06/02/20 History Albuterol Sulfate [Proair HFA] 2 puff INH Q4HR PRN 06/02/20 06/02/20 History Amlodipine [Norvasc] 10 mg PO DAILY 06/02/20 06/02/20 History B,C/Folic/Zinc/Selenometh/D3/E 1 tab PO DAILY 06/02/20 06/02/20 History [Renaplex-D Tablet] Glecaprevir/Pibrentasvir [Mavyret 3 tab PO DAILY 06/02/20 06/02/20 History 100-40 mg Tablet] Mometasone/Formoterol 100/5 1 puff INH BID 06/02/20 06/02/20 History [Dulera 100 mcg/5 mcg Inhaler] traMADol HCl [Tramadol HCl] 50 mg PO Q8HR PRN 06/02/20 06/02/20 History Amoxicillin/Potassium Clav 1 each PO Q12H #10 tablet 06/05/20 Rx [Augmentin 875-125 Tablet] predniSONE 20 mg PO ASDIR #16 tab 06/05/20 Rx Allergies: shellfish derived Allergy (Severe, Verified 07/22/19 16:11) Short of Breath SWELLING, HIVES ondansetron HCl [From Zofran] Allergy (Unknown, Verified 07/22/19 16:11) med listed as allergy on dc profile and [facility] admit orders iodine Adverse Reaction (Severe, Verified 07/22/19 16:11) Short of Breath SWELLING, HIVES Activity:: Activity as Tolerated Referrals: Bridger Ivey MD [Primary Care Provider] - Disposition: HOME Quality CORE MEASURES:: N/A
[2020-06-06] MEDS ORDERED: methylPREDNISolone Sod Succ 40 MG VIAL IVP SCH (09:00)
== END 2020-06-05 18:27 | disposition home or self-care (01) | DRG 189 ==
LOC: ERS 06:41 → ERHOLD 09:22 → 3SE 14:28 → OBSVTOIN 06-04 09:26
PROVIDERS: ADMIT Internal Medicine; ATTEND Internal Medicine
PROC: 5A1D70Z Performance of Urinary Filtration, Intermittent, Less than 6 Hours Per Day (ICD-10-PCS; principal; 2020-06-04)
DX: J96.01 Acute respiratory failure with hypoxia (principal); N18.6 End stage renal disease; J44.1 Chronic obstructive pulmonary disease with (acute) exacerbation; I13.2 Hypertensive heart and chronic kidney disease with heart failure and with stage 5 chronic kidney disease, or end stage renal disease; I50.22 Chronic systolic (congestive) heart failure; J45.901 Unspecified asthma with (acute) exacerbation; R77.8 Other specified abnormalities of plasma proteins; Z20.822 Contact with and (suspected) exposure to COVID-19; E78.5 Hyperlipidemia, unspecified; I25.10 Atherosclerotic heart disease of native coronary artery without angina pectoris; Z99.2 Dependence on renal dialysis; Z91.013 Allergy to seafood; Z91.041 Radiographic dye allergy status; Z88.8 Allergy status to other drugs, medicaments and biological substances; Z79.82 Long term (current) use of aspirin; Z90.49 Acquired absence of other specified parts of digestive tract; Z90.710 Acquired absence of both cervix and uterus
CPT/HCPCS: 36415; 71045; 80048; 80053; 81003; 81015; 82553; 83735; 83880; 84484; 85025; 85379; 90935; 93005; 94640; 96374; 96375; 96376; G0257; G0378; J0456; J0696; J1940; J2920; J3490; J7050; J7512; J7611; J7620; U0002

== ENCOUNTER 2020-07-06 18:04 | Inpatient (IN) | payer MEDICARE, MEDICAID ==
[2020-07-06] MEDS ORDERED: Albuterol 200 PUFF (6.7GM INHALER) ONE (18:28)
[2020-07-06] MEDS ORDERED: Dexamethasone 10 MG/ML VIAL ONE (18:45)
[2020-07-06 18:59] LABS: Hemoglobin 11.9 g/dL (12.0-16.0); Mean Corpuscular HGB CONC 32.1 g/dL (32.0-36.0); Mean Corpuscular Hemoglobin 27.5 pg (27.0-31.0); Mean Corpuscular Volume 85.5 fL (78.0-98.0); Mean Platelet Volume 8.6 fL (7.4-10.4); Platelet Count 203 thou/uL (130-400); RBC Distribution Width 18.2 % (11.5-14.5); Red Blood Cell (RBC) Count 4.33 mill/uL (4.20-5.40); White Blood Cell (WBC) Count 6.9 thou/uL (4.8-10.8)
[2020-07-06 19:18] LABS: Band 6 % (5-11); Lymphocytes 18 % (21-51); MDiff Complete? YES; Monocytes 11 % (0-10); Neutrophil 53 % (42-75); Platelet Morphology Comment Appears Adequate; Polychromasia SLIGHT = 2-3 cells (100X) (0-2/hpf); Reactive Lymphocytes 12 % (0-10); Target Cells SLIGHT = 2-5 cells (100X) (0-1/hpf); Tear Drops SLIGHT = 2-5 cells (100X) (0-1/hpf)
[2020-07-06 19:29] LABS: ALT (SGPT) 13 U/L (8-55); AST (SGOT) 38 U/L (5-34); Albumin 3.6 g/dL (3.4-4.8); Alkaline Phosphatase 116 U/L (40-110); Anion Gap 20 mmol/L (10-20); BUN (Urea Nitrogen) 34 mg/dL (9.8-20.1); Bilirubin, Total 0.4 mg/dL (0.2-1.2); Calc. Creatinine Clearance 0 mL/min (70-130); Calcium 8.9 mg/dL (7.8-10.44); Carbon Dioxide 23 mmol/L (23-31); Chloride 99 mmol/L (98-107); Globulin 3.4 g/dL (2.4-3.5); Glucose 142 mg/dL (83-110); Potassium 5.3 mmol/L (3.5-5.1); Sodium 137 mmol/L (136-145)
[2020-07-06 19:39] LABS: SARS-CoV-2 NAA Rapid Test Not Detected (NotDetected)
[2020-07-06 19:42] LABS: CKMB 1.4 ng/mL (0-6.6)
[2020-07-06] MEDS ORDERED: Acetaminophen 500 MG TAB ONE ×2 (19:54→21:33)
[2020-07-06] MEDS ORDERED: Acetaminophen 325 MG TAB PO PRN (22:15)
[2020-07-06 22:45] VITALS: BMI 25.2
[2020-07-07] MEDS: Azithromycin 500 MG in Sodium Chloride 0.9% 250 ML 250 ML IVPB SCH (04:35)
[2020-07-07] MEDS: cefTRIAXone\\ROCEPHIN 1 GM in Sodium Chloride 0.9% 100 ML IVPB SCH (05:36)
[2020-07-07 06:51] LABS: #Monocytes 0.1 thou/uL (0.11-0.59); #Neutrophils 2.6 thou/uL (1.40-6.50); %Basophils 0.6 % (0.0-1.0); %Lymphocytes 26.8 % (21.0-51.0); %Monocytes 3.1 % (0.0-10.0); %Neutrophils 69.4 % (42.0-75.0); Hemoglobin 11.7 g/dL (12.0-16.0); Mean Corpuscular HGB CONC 32.3 g/dL (32.0-36.0); Mean Corpuscular Hemoglobin 27.9 pg (27.0-31.0); Mean Corpuscular Volume 86.2 fL (78.0-98.0); Mean Platelet Volume 8.7 fL (7.4-10.4); Platelet Count 194 thou/uL (130-400); RBC Distribution Width 18.2 % (11.5-14.5); Red Blood Cell (RBC) Count 4.21 mill/uL (4.20-5.40); White Blood Cell (WBC) Count 3.7 thou/uL (4.8-10.8)
[2020-07-07 07:13] LABS: Anion Gap 19 mmol/L (10-20); BUN (Urea Nitrogen) 38 mg/dL (9.8-20.1); Calc. Creatinine Clearance 7 mL/min (70-130); Carbon Dioxide 25 mmol/L (23-31); Chloride 100 mmol/L (98-107); Glucose 188 mg/dL (83-110); Potassium 6.1 mmol/L (3.5-5.1); Sodium 138 mmol/L (136-145)
[2020-07-07] MEDS: Heparin 5,000 UNITS/ML VIAL SC SCH ×3 (08:59→21:17)
[2020-07-08] MEDS: Azithromycin 500 MG in Sodium Chloride 0.9% 250 ML 250 ML IVPB SCH (04:01)
[2020-07-08] MEDS: cefTRIAXone\\ROCEPHIN 1 GM in Sodium Chloride 0.9% 100 ML IVPB SCH (05:59)
[2020-07-08] MEDS: Heparin 5,000 UNITS/ML VIAL SC SCH ×2 (08:22→15:28)
[2020-07-08 15:27] LABS: Anion Gap 20 mmol/L (10-20); BUN (Urea Nitrogen) 37 mg/dL (9.8-20.1); Calc. Creatinine Clearance 10 mL/min (70-130); Calcium 8.4 mg/dL (7.8-10.44); Carbon Dioxide 23 mmol/L (23-31); Chloride 101 mmol/L (98-107); Glucose 109 mg/dL (83-110); Sodium 139 mmol/L (136-145)
[2020-07-08 16:38] VITALS: BP 149/81; TEMP 98.5
== END 2020-07-08 17:33 | disposition home or self-care (01) | DRG 291 ==
LOC: ERS 18:04 → T4-A 20:29 → OBSVTOIN 07-07 16:13
PROVIDERS: ADMIT Student in an Organized Health Care Education/Training Program; ATTEND Internal Medicine
PROC: 5A1D70Z Performance of Urinary Filtration, Intermittent, Less than 6 Hours Per Day (ICD-10-PCS; principal; 2020-07-07)
DX: I11.0 Hypertensive heart disease with heart failure (principal); N18.6 End stage renal disease; E87.5 Hyperkalemia; I50.33 Acute on chronic diastolic (congestive) heart failure; E87.70 Fluid overload, unspecified; E78.5 Hyperlipidemia, unspecified; J44.9 Chronic obstructive pulmonary disease, unspecified; D63.1 Anemia in chronic kidney disease; Z20.822 Contact with and (suspected) exposure to COVID-19; J45.909 Unspecified asthma, uncomplicated; I25.2 Old myocardial infarction; Z99.2 Dependence on renal dialysis; Z91.013 Allergy to seafood; Z91.041 Radiographic dye allergy status; Z79.82 Long term (current) use of aspirin; Z90.49 Acquired absence of other specified parts of digestive tract; Z90.710 Acquired absence of both cervix and uterus
CPT/HCPCS: 0240U; 36415; 71045; 80048; 80053; 82553; 83880; 84484; 85025; 93005; 94760; 96372; 96374; 96375; G0378; J0456; J0696; J1100; J1644; J3490; J7050

== ENCOUNTER 2020-07-10 00:06 | Emergency (ER) | payer MEDICARE, MEDICAID ==
[2020-07-10 00:52] LABS: #Basophils 0.1 thou/uL (0.0-0.2); #Monocytes 1.1 thou/uL (0.11-0.59); #Neutrophils 5.9 thou/uL (1.40-6.50); %Eosinophils 0.1 % (0.0-10.0); %Lymphocytes 22.3 % (21.0-51.0); %Monocytes 11.6 % (0.0-10.0); Hemoglobin 12.1 g/dL (12.0-16.0); Mean Corpuscular HGB CONC 32.5 g/dL (32.0-36.0); Mean Corpuscular Volume 86.2 fL (78.0-98.0); Mean Platelet Volume 8.3 fL (7.4-10.4); Platelet Count 202 thou/uL (130-400); RBC Distribution Width 18.4 % (11.5-14.5)
[2020-07-10] MEDS ORDERED: Mag-Al 1200 mg/1200 mg/30 ML UDCUP ONE (00:53)
[2020-07-10 01:13] LABS: ALT (SGPT) 10 U/L (8-55); AST (SGOT) 23 U/L (5-34); Albumin 3.5 g/dL (3.4-4.8); Alkaline Phosphatase 96 U/L (40-110); Anion Gap 18 mmol/L (10-20); BUN (Urea Nitrogen) 15 mg/dL (9.8-20.1); Bilirubin, Total 0.3 mg/dL (0.2-1.2); Calc. Creatinine Clearance 0 mL/min (70-130); Calcium 8.8 mg/dL (7.8-10.44); Carbon Dioxide 30 mmol/L (23-31); Chloride 97 mmol/L (98-107); Globulin 3.3 g/dL (2.4-3.5); Glucose 152 mg/dL (83-110); Potassium 3.6 mmol/L (3.5-5.1); Protein, Total 6.8 g/dL (5.8-8.1); Sodium 141 mmol/L (136-145)
[2020-07-10 01:36] LABS: CKMB 0.7 ng/mL (0-6.6)
[2020-07-10] MEDS ORDERED: Albuterol Sulfate 1.25 MG/3 ML NEB ONE (02:20)
[2020-07-10] MEDS ORDERED: Albuterol Sulfate 2.5 mg/0.5 ml Neb ONE (02:21)
[2020-07-10] MEDS ORDERED: methylPREDNISolone Sod Succ 40 MG VIAL ONE (03:39)
[2020-07-10] MEDS ORDERED: Doxycycline 100 MG CAP PO SCH (03:45)
== END 2020-07-10 03:59 | disposition home or self-care (01) ==
LOC: ERS 00:06
DX: J44.1 Chronic obstructive pulmonary disease with (acute) exacerbation (principal); I13.2 Hypertensive heart and chronic kidney disease with heart failure and with stage 5 chronic kidney disease, or end stage renal disease; N18.6 End stage renal disease; I50.9 Heart failure, unspecified; E78.5 Hyperlipidemia, unspecified; I25.2 Old myocardial infarction; Z99.2 Dependence on renal dialysis; Z79.82 Long term (current) use of aspirin; Z79.899 Other long term (current) drug therapy
CPT/HCPCS: 36416; 71045; 80053; 82553; 84484; 85025; 93005; 96374; J2920; J7611

== ENCOUNTER 2020-07-15 23:30 | Observation (INO) | payer MEDICARE, MEDICAID ==
[2020-07-16 00:36] LABS: #Basophils 0.1 thou/uL (0.0-0.2); #Eosinphils 0.1 thou/uL (0.0-0.7); #Lymphocytes 1.9 thou/uL (1.20-3.40); #Monocytes 0.9 thou/uL (0.11-0.59); #Neutrophils 6.6 thou/uL (1.40-6.50); %Basophils 1.2 % (0.0-1.0); %Monocytes 8.9 % (0.0-10.0); Hemoglobin 12.9 g/dL (12.0-16.0); Mean Corpuscular HGB CONC 30.8 g/dL (32.0-36.0); Mean Corpuscular Hemoglobin 26.5 pg (27.0-31.0); Mean Platelet Volume 8.5 fL (7.4-10.4); Platelet Count 218 thou/uL (130-400); RBC Distribution Width 18.6 % (11.5-14.5); Red Blood Cell (RBC) Count 4.86 mill/uL (4.20-5.40); White Blood Cell (WBC) Count 9.6 thou/uL (4.8-10.8)
[2020-07-16 00:58] LABS: ALT (SGPT) 19 U/L (8-55); AST (SGOT) 26 U/L (5-34); Albumin 3.3 g/dL (3.4-4.8); Alkaline Phosphatase 85 U/L (40-110); Anion Gap 21 mmol/L (10-20); BUN (Urea Nitrogen) 38 mg/dL (9.8-20.1); Bilirubin, Total 0.2 mg/dL (0.2-1.2); Calc. Creatinine Clearance 0 mL/min (70-130); Calcium 7.9 mg/dL (7.8-10.44); Carbon Dioxide 23 mmol/L (23-31); Chloride 103 mmol/L (98-107); Globulin 3.3 g/dL (2.4-3.5); Glucose 159 mg/dL (83-110); Potassium 3.4 mmol/L (3.5-5.1); Protein, Total 6.6 g/dL (5.8-8.1); Sodium 144 mmol/L (136-145)
[2020-07-16 01:20] LABS: CKMB 1.3 ng/mL (0-6.6)
[2020-07-16] MEDS ORDERED: Furosemide 20 MG/2 ML VIAL ONE (02:03)
[2020-07-16 04:26] VITALS: BMI 26.2
[2020-07-16 05:00] LABS: Troponin I 0.036 ng/mL (< 0.028)
[2020-07-16 06:48] LABS: Troponin I 0.038 ng/mL (< 0.028)
[2020-07-16] MEDS ORDERED: Non-Formulary Item 1 EACH (Albuterol Sulfate [Proair Hfa] 8.5 GM Hfa.Aer.Ad) INH PRN (09:01)
[2020-07-16] MEDS ORDERED: Albuterol 200 PUFF (6.7GM INHALER) INH PRN (09:10)
[2020-07-16 13:12] LABS: SARS-CoV-2 PCR by NAA Not Detected (NotDetected)
[2020-07-16] MEDS ORDERED: PIBRENTASVIR PO SCH (15:00)
[2020-07-16] MEDS ORDERED: GLECAPREVIR PO SCH (15:00)
[2020-07-16] MEDS ORDERED: [UNRECOGNIZED DRUG - OTHER] PO SCH (15:00)
[2020-07-16] MEDS: Mometasone 100 MCG/Formoterol 5 MCG 120 PUFF INHALER INH SCH (18:14)
[2020-07-16] MEDS: Carvedilol 25 MG TAB PO SCH (19:49)
[2020-07-17] MEDS: Mometasone 100 MCG/Formoterol 5 MCG 120 PUFF INHALER INH SCH (07:47)
[2020-07-17] MEDS: Carvedilol 25 MG TAB PO SCH (08:39)
[2020-07-17] MEDS ORDERED: Amlodipine 10 MG TAB PO SCH (09:00)
[2020-07-17] MEDS ORDERED: [UNRECOGNIZED DRUG - REMARK] PO SCH (09:00)
[2020-07-17] MEDS ORDERED: Aspirin 81 mg Enteric Coated Tablet PO SCH (09:00)
[2020-07-17] MEDS ORDERED: Stress 600 With Zinc 1 TAB PO SCH (09:00)
[2020-07-17] MEDS ORDERED: Non-Formulary Item 1 EACH (B,C/Folic/Zinc/Selenometh/D3/E [Renaplex-D Tablet] 1 EACH Tabl PO SCH (09:00)
[2020-07-17] MEDS ORDERED: Folic Acid/Vit B Comp W-C PO SCH (09:00)
[2020-07-17 17:11] VITALS: BP 122/69; TEMP 98.7
== END 2020-07-17 18:05 | disposition home or self-care (01) ==
LOC: ERS 23:30 → 2SW 07-16 02:23
PROVIDERS: ADMIT Internal Medicine; ATTEND Internal Medicine
DX: I13.2 Hypertensive heart and chronic kidney disease with heart failure and with stage 5 chronic kidney disease, or end stage renal disease (principal); N18.6 End stage renal disease; I42.8 Other cardiomyopathies; I50.23 Acute on chronic systolic (congestive) heart failure; D63.1 Anemia in chronic kidney disease; E87.70 Fluid overload, unspecified; J90 Pleural effusion, not elsewhere classified; J44.9 Chronic obstructive pulmonary disease, unspecified; E78.5 Hyperlipidemia, unspecified; B18.2 Chronic viral hepatitis C; I25.2 Old myocardial infarction; I25.10 Atherosclerotic heart disease of native coronary artery without angina pectoris; R10.9 Unspecified abdominal pain; I08.1 Rheumatic disorders of both mitral and tricuspid valves; Z86.73 Personal history of transient ischemic attack (TIA), and cerebral infarction without residual deficits; Z79.82 Long term (current) use of aspirin; Z79.899 Other long term (current) drug therapy; Z88.8 Allergy status to other drugs, medicaments and biological substances; Z91.013 Allergy to seafood; Z91.041 Radiographic dye allergy status; Z99.2 Dependence on renal dialysis; Z20.822 Contact with and (suspected) exposure to COVID-19
CPT/HCPCS: 71045; 80053; 82553; 83880; 84484 ×2; 85025; 93005; 93306; 94640 ×2; 96374; 99285; G0378 ×3; U0003; U0005; 36415; 87635; 90935; G0257; J1940

== ENCOUNTER 2020-09-03 19:21 | Inpatient (IN) | payer MEDICARE, MEDICAID ==
[2020-09-03 20:26] LABS: Hemoglobin 10.9 g/dL (12.0-16.0); Mean Corpuscular HGB CONC 31.2 g/dL (32.0-36.0); Mean Corpuscular Volume 83.4 fL (78.0-98.0); Mean Platelet Volume 9.2 fL (7.4-10.4); Platelet Count 142 thou/uL (130-400); RBC Distribution Width 19.2 % (11.5-14.5); Red Blood Cell (RBC) Count 4.19 mill/uL (4.20-5.40); White Blood Cell (WBC) Count 4.2 thou/uL (4.8-10.8)
[2020-09-03 20:43] LABS: Band 1 % (5-11); Eosinophils 2 % (0-10); Hypochromia SLIGHT = 6-15 cells (100X) (0-5/hpf); Lymphocytes 7 % (21-51); MDiff Complete? YES; Monocytes 9 % (0-10); Neutrophil 81 % (42-75); Platelet Morphology Comment Appears Adequate
[2020-09-03 20:50] LABS: ALT (SGPT) 12 U/L (8-55); AST (SGOT) 19 U/L (5-34); Albumin 3.8 g/dL (3.4-4.8); Alkaline Phosphatase 101 U/L (40-110); Anion Gap 15 mmol/L (10-20); BUN (Urea Nitrogen) 25 mg/dL (9.8-20.1); Bilirubin, Total 0.6 mg/dL (0.2-1.2); Calc. Creatinine Clearance 0 mL/min (70-130); Calcium 9.4 mg/dL (7.8-10.44); Carbon Dioxide 34 mmol/L (23-31); Chloride 97 mmol/L (98-107); Globulin 3.5 g/dL (2.4-3.5); Glucose 144 mg/dL (83-110); Potassium 3.5 mmol/L (3.5-5.1); Protein, Total 7.3 g/dL (5.8-8.1); Sodium 142 mmol/L (136-145)
[2020-09-03 21:12] LABS: CKMB 1.4 ng/mL (0-6.6)
[2020-09-03] MEDS ORDERED: Acetaminophen 325 MG TAB PO PRN (22:34)
[2020-09-03] MEDS ORDERED: methylPREDNISolone Sod Succ/PF 125 MG/2 ML VIAL ONE (22:50)
[2020-09-03 23:52] VITALS: BMI 23.0
[2020-09-04 00:26] LABS: Troponin I 0.037 ng/mL (< 0.028)
[2020-09-04] MEDS: Azithromycin 500 MG in Sodium Chloride 0.9% 250 ML 250 ML IVPB SCH (01:15)
[2020-09-04 03:17] LABS: SARS-CoV-2 NAA Rapid Test Not Detected (NotDetected)
[2020-09-04 03:26] LABS: #Lymphocytes 0.8 thou/uL (1.20-3.40); #Monocytes 0.2 thou/uL (0.11-0.59); #Neutrophils 2.9 thou/uL (1.40-6.50); %Basophils 1.2 % (0.0-1.0); %Eosinophils 1.1 % (0.0-10.0); %Lymphocytes 19.3 % (21.0-51.0); %Monocytes 5.9 % (0.0-10.0); %Neutrophils 72.6 % (42.0-75.0); Hemoglobin 10.5 g/dL (12.0-16.0); Mean Corpuscular HGB CONC 31.1 g/dL (32.0-36.0); Mean Corpuscular Hemoglobin 25.7 pg (27.0-31.0); Mean Corpuscular Volume 82.5 fL (78.0-98.0); Mean Platelet Volume 9.9 fL (7.4-10.4); Platelet Count 120 thou/uL (130-400); RBC Distribution Width 19.1 % (11.5-14.5)
[2020-09-04 03:53] LABS: Anion Gap 17 mmol/L (10-20); BUN (Urea Nitrogen) 31 mg/dL (9.8-20.1); Calc. Creatinine Clearance 11 mL/min (70-130); Calcium 9.1 mg/dL (7.8-10.44); Carbon Dioxide 26 mmol/L (23-31); Chloride 100 mmol/L (98-107); Glucose 189 mg/dL (83-110); Potassium 4.2 mmol/L (3.5-5.1); Sodium 139 mmol/L (136-145)
[2020-09-04 03:58] LABS: Troponin I 0.035 ng/mL (< 0.028)
[2020-09-04] MEDS: Amlodipine 10 MG TAB PO SCH (08:00)
[2020-09-04] MEDS: Carvedilol 25 MG TAB PO SCH ×2 (08:00→20:19)
[2020-09-04] MEDS: Aspirin 81 mg Enteric Coated Tablet PO SCH (08:00)
[2020-09-04] MEDS: Mometasone 100 MCG/Formoterol 5 MCG 120 PUFF INHALER INH SCH ×2 (08:18→19:27)
[2020-09-04] MEDS ORDERED: methylPREDNISolone Sod Succ 40 MG VIAL IVP SCH (09:00)
[2020-09-04] MEDS: Folic Acid/Vit B Comp W-C PO SCH (09:13)
[2020-09-04] MEDS: Stress 600 With Zinc 1 TAB PO SCH (09:13)
[2020-09-05] MEDS: Azithromycin 500 MG in Sodium Chloride 0.9% 250 ML 250 ML IVPB SCH (00:31)
[2020-09-05] MEDS ORDERED: Calcium Carbonate 500 MG ChewTAB PO SCH (03:15)
[2020-09-05 05:02] LABS: Anion Gap 18 mmol/L (10-20); BUN (Urea Nitrogen) 62 mg/dL (9.8-20.1); Calc. Creatinine Clearance 8 mL/min (70-130); Calcium 8.7 mg/dL (7.8-10.44); Carbon Dioxide 24 mmol/L (23-31); Chloride 96 mmol/L (98-107); Glucose 165 mg/dL (83-110); Magnesium 2.2 mg/dL (1.6-2.6); Potassium 4.4 mmol/L (3.5-5.1); Sodium 134 mmol/L (136-145)
[2020-09-05] MEDS: Mometasone 100 MCG/Formoterol 5 MCG 120 PUFF INHALER INH SCH ×2 (07:45→18:56)
[2020-09-05] MEDS: Carvedilol 25 MG TAB PO SCH ×2 (08:33→20:23)
[2020-09-05] MEDS: predniSONE 5 MG TAB PO SCH (08:33)
[2020-09-05] MEDS: Calcium Carbonate 500 MG ChewTAB PO SCH ×4 (08:33→20:23)
[2020-09-05] MEDS: Stress 600 With Zinc 1 TAB PO SCH (08:33)
[2020-09-05] MEDS: Folic Acid/Vit B Comp W-C PO SCH (08:33)
[2020-09-05] MEDS: Aspirin 81 mg Enteric Coated Tablet PO SCH (08:33)
[2020-09-05] MEDS: Amlodipine 10 MG TAB PO SCH (15:19)
[2020-09-05 15:41] LABS: #Lymphocytes 0.6 thou/uL (1.20-3.40); #Monocytes 0.3 thou/uL (0.11-0.59); #Neutrophils 3.7 thou/uL (1.40-6.50); %Basophils 0.3 % (0.0-1.0); %Eosinophils 0.5 % (0.0-10.0); %Lymphocytes 13.4 % (21.0-51.0); %Monocytes 6.3 % (0.0-10.0); %Neutrophils 79.4 % (42.0-75.0); Hemoglobin 11.3 g/dL (12.0-16.0); Mean Corpuscular HGB CONC 31.2 g/dL (32.0-36.0); Mean Corpuscular Hemoglobin 25.4 pg (27.0-31.0); Mean Corpuscular Volume 81.5 fL (78.0-98.0); Mean Platelet Volume 9.7 fL (7.4-10.4); Platelet Count 135 thou/uL (130-400); RBC Distribution Width 19.5 % (11.5-14.5); Red Blood Cell (RBC) Count 4.43 mill/uL (4.20-5.40); White Blood Cell (WBC) Count 4.6 thou/uL (4.8-10.8)
[2020-09-05 16:12] LABS: Anion Gap 17 mmol/L (10-20); BUN (Urea Nitrogen) 12 mg/dL (9.8-20.1); Calc. Creatinine Clearance 26 mL/min (70-130); Calcium 9.2 mg/dL (7.8-10.44); Carbon Dioxide 28 mmol/L (23-31); Chloride 99 mmol/L (98-107); Glucose 122 mg/dL (83-110); Potassium 3.8 mmol/L (3.5-5.1); Sodium 140 mmol/L (136-145)
[2020-09-06] MEDS: Azithromycin 500 MG in Sodium Chloride 0.9% 250 ML 250 ML IVPB SCH (00:35)
[2020-09-06 04:54] LABS: #Lymphocytes 1.1 thou/uL (1.20-3.40); #Monocytes 0.5 thou/uL (0.11-0.59); #Neutrophils 2.5 thou/uL (1.40-6.50); %Basophils 0.4 % (0.0-1.0); %Lymphocytes 26.8 % (21.0-51.0); %Monocytes 11.7 % (0.0-10.0); %Neutrophils 60.1 % (42.0-75.0); Hemoglobin 9.9 g/dL (12.0-16.0); Mean Corpuscular HGB CONC 30.8 g/dL (32.0-36.0); Mean Corpuscular Hemoglobin 25.3 pg (27.0-31.0); Mean Corpuscular Volume 82.3 fL (78.0-98.0); Mean Platelet Volume 9.5 fL (7.4-10.4); Platelet Count 122 thou/uL (130-400); RBC Distribution Width 19.5 % (11.5-14.5); Red Blood Cell (RBC) Count 3.89 mill/uL (4.20-5.40); White Blood Cell (WBC) Count 4.1 thou/uL (4.8-10.8)
[2020-09-06 05:24] LABS: Anion Gap 14 mmol/L (10-20); BUN (Urea Nitrogen) 30 mg/dL (9.8-20.1); Calc. Creatinine Clearance 14 mL/min (70-130); Calcium 8.3 mg/dL (7.8-10.44); Carbon Dioxide 27 mmol/L (23-31); Chloride 99 mmol/L (98-107); Glucose 121 mg/dL (83-110); Potassium 3.9 mmol/L (3.5-5.1); Sodium 136 mmol/L (136-145)
[2020-09-06] MEDS: Mometasone 100 MCG/Formoterol 5 MCG 120 PUFF INHALER INH SCH (07:14)
[2020-09-06 07:56] VITALS: TEMP 97.6
[2020-09-06] MEDS: Amlodipine 10 MG TAB PO SCH (08:54)
[2020-09-06] MEDS: Stress 600 With Zinc 1 TAB PO SCH (08:54)
[2020-09-06] MEDS: Calcium Carbonate 500 MG ChewTAB PO SCH ×2 (08:54→12:56)
[2020-09-06] MEDS: Folic Acid/Vit B Comp W-C PO SCH (08:54)
[2020-09-06] MEDS: Carvedilol 25 MG TAB PO SCH (08:54)
[2020-09-06] MEDS: predniSONE 5 MG TAB PO SCH (08:54)
[2020-09-06] MEDS: Aspirin 81 mg Enteric Coated Tablet PO SCH (08:54)
[2020-09-06 11:15] VITALS: BP 117/62
[2020-09-08] MEDS ORDERED: EPOETIN ALFA-EPBX (ESRD) 3,000 UNIT/ML VIAL SC SCH (09:00)
[2020-09-08] MEDS ORDERED: EPOETIN ALFA-EPBX (ESRD) 2,000 UNIT/ML VIAL SC SCH (09:00)
[2020-09-08] MEDS ORDERED: Epoetin (ESRD) 20,000 UNITS/ML SC SCH (14:29)
== END 2020-09-06 14:20 | disposition home or self-care (01) | DRG 291 ==
LOC: ERS 19:21 → 2NO 21:58
PROVIDERS: ADMIT Student in an Organized Health Care Education/Training Program; ATTEND Internal Medicine
PROC: 5A1D70Z Performance of Urinary Filtration, Intermittent, Less than 6 Hours Per Day (ICD-10-PCS; principal; 2020-09-03)
DX: I13.2 Hypertensive heart and chronic kidney disease with heart failure and with stage 5 chronic kidney disease, or end stage renal disease (principal); I50.23 Acute on chronic systolic (congestive) heart failure; N18.6 End stage renal disease; J96.01 Acute respiratory failure with hypoxia; J44.1 Chronic obstructive pulmonary disease with (acute) exacerbation; J45.21 Mild intermittent asthma with (acute) exacerbation; K92.2 Gastrointestinal hemorrhage, unspecified; Z20.822 Contact with and (suspected) exposure to COVID-19; B18.2 Chronic viral hepatitis C; E78.5 Hyperlipidemia, unspecified; D63.1 Anemia in chronic kidney disease; Z99.2 Dependence on renal dialysis; Z91.041 Radiographic dye allergy status; Z91.013 Allergy to seafood; Z79.82 Long term (current) use of aspirin; Z88.8 Allergy status to other drugs, medicaments and biological substances; Z79.51 Long term (current) use of inhaled steroids; Z79.899 Other long term (current) drug therapy; I25.2 Old myocardial infarction; Z90.710 Acquired absence of both cervix and uterus; Z95.0 Presence of cardiac pacemaker; Z98.890 Other specified postprocedural states
CPT/HCPCS: 36415; 71045; 80048; 80053; 82553; 83605; 83735; 83880; 84484; 85025; 90935; 94760; 96374; G0257; J0456; J2920; J2930; J7050; J7512; J7620; U0002

== ENCOUNTER 2020-09-27 20:41 | Emergency (ER) | payer MEDICARE, MEDICAID ==
[2020-09-27] MEDS ORDERED: Albuterol Sulfate 2.5 mg/0.5 ml Neb ONE ×2 (21:34→23:57)
[2020-09-27 21:48] LABS: Hemoglobin 10.5 g/dL (12.0-16.0); Mean Corpuscular HGB CONC 32.7 g/dL (32.0-36.0); Mean Corpuscular Hemoglobin 27.6 pg (27.0-31.0); Mean Corpuscular Volume 84.5 fL (78.0-98.0); Mean Platelet Volume 8.4 fL (7.4-10.4); Platelet Count 171 thou/uL (130-400); RBC Distribution Width 20.6 % (11.5-14.5); White Blood Cell (WBC) Count 5.3 thou/uL (4.8-10.8)
[2020-09-27 21:54] LABS: ALT (SGPT) 9 U/L (8-55); AST (SGOT) 17 U/L (5-34); Albumin 3.7 g/dL (3.4-4.8); Alkaline Phosphatase 80 U/L (40-110); Anion Gap 15 mmol/L (10-20); BUN (Urea Nitrogen) 25 mg/dL (9.8-20.1); Bilirubin, Total 0.5 mg/dL (0.2-1.2); Calc. Creatinine Clearance 0 mL/min (70-130); Calcium 9.4 mg/dL (7.8-10.44); Carbon Dioxide 29 mmol/L (23-31); Chloride 102 mmol/L (98-107); Globulin 3.3 g/dL (2.4-3.5); Glucose 142 mg/dL (83-110); Potassium 3.2 mmol/L (3.5-5.1); Sodium 143 mmol/L (136-145)
[2020-09-27 22:22] LABS: Anisocytosis SLIGHT = 6-15 cells (100X) (0-5/hpf); Band 1 % (5-11); Eosinophils 2 % (0-10); Lymphocytes 34 % (21-51); MDiff Complete? YES; Monocytes 18 % (0-10); Neutrophil 45 % (42-75)
[2020-09-27] MEDS ORDERED: methylPREDNISolone Sod Succ/PF 125 MG/2 ML VIAL ONE (23:53)
== END 2020-09-28 01:46 | disposition home or self-care (01) ==
LOC: ERS 20:41
DX: J44.1 Chronic obstructive pulmonary disease with (acute) exacerbation (principal); I11.0 Hypertensive heart disease with heart failure; I50.9 Heart failure, unspecified; I25.2 Old myocardial infarction; E78.5 Hyperlipidemia, unspecified; Z79.899 Other long term (current) drug therapy; Z79.82 Long term (current) use of aspirin
CPT/HCPCS: 36415; 71045; 80053; 83880; 84484; 85025; 93005; 94640; 96374; J2930; J7611

== ENCOUNTER 2021-08-22 06:33 | Emergency (ER) | payer MEDICARE, MEDICAID ==
[2021-08-22 07:20] LABS: #Eosinphils 0.3 thou/uL (0.0-0.7); #Lymphocytes 1.1 thou/uL (1.20-3.40); #Monocytes 0.7 thou/uL (0.11-0.59); #Neutrophils 3.5 thou/uL (1.40-6.50); %Basophils 0.6 % (0.0-1.0); %Eosinophils 5.4 % (0.0-10.0); %Lymphocytes 19.2 % (21.0-51.0); %Monocytes 12.3 % (0.0-10.0); %Neutrophils 62.6 % (42.0-75.0); Mean Corpuscular HGB CONC 32.3 g/dL (32.0-36.0); Mean Corpuscular Hemoglobin 29.7 pg (27.0-31.0); Mean Platelet Volume 7.7 fL (7.4-10.4); Platelet Count 154 thou/uL (130-400); RBC Distribution Width 18.6 % (11.5-14.5); Red Blood Cell (RBC) Count 3.69 mill/uL (4.20-5.40); White Blood Cell (WBC) Count 5.6 thou/uL (4.8-10.8)
[2021-08-22 07:37] LABS: ALT (SGPT) 21 U/L (8-55); AST (SGOT) 20 U/L (5-34); Albumin 3.6 g/dL (3.4-4.8); Alkaline Phosphatase 70 U/L (40-110); Anion Gap 18 mmol/L (10-20); BUN (Urea Nitrogen) 32 mg/dL (9.8-20.1); Bilirubin, Total 0.5 mg/dL (0.2-1.2); Calc. Creatinine Clearance 0 mL/min (70-130); Calcium 8.7 mg/dL (7.8-10.44); Carbon Dioxide 27 mmol/L (23-31); Chloride 99 mmol/L (98-107); Globulin 2.9 g/dL (2.4-3.5); Glucose 93 mg/dL (83-110); Potassium 4.3 mmol/L (3.5-5.1); Protein, Total 6.5 g/dL (5.8-8.1); Sodium 140 mmol/L (136-145)
== END 2021-08-22 08:27 | disposition home or self-care (01) ==
LOC: ERS 06:33
DX: J45.901 Unspecified asthma with (acute) exacerbation (principal); I25.2 Old myocardial infarction; I11.0 Hypertensive heart disease with heart failure; I50.9 Heart failure, unspecified; E78.5 Hyperlipidemia, unspecified
CPT/HCPCS: 36415; 71045; 80053; 82553; 83880; 84484; 85025; 93005; J7620

== ENCOUNTER 2021-09-02 06:14 | Inpatient (IN) | payer MEDICARE, MEDICAID ==
[2021-09-02] MEDS ORDERED: methylPREDNISolone Sod Succ/PF 125 MG/2 ML VIAL ONE (06:36)
[2021-09-02 08:15] LABS: #Eosinphils 0.3 thou/uL (0.0-0.7); #Lymphocytes 1.6 thou/uL (1.20-3.40); #Monocytes 0.6 thou/uL (0.11-0.59); #Neutrophils 2.4 thou/uL (1.40-6.50); %Basophils 0.1 % (0.0-1.0); %Eosinophils 6.5 % (0.0-10.0); %Lymphocytes 32.3 % (21.0-51.0); %Monocytes 11.9 % (0.0-10.0); %Neutrophils 49.2 % (42.0-75.0); Hemoglobin 9.9 g/dL (12.0-16.0); Mean Corpuscular HGB CONC 32.3 g/dL (32.0-36.0); Mean Corpuscular Hemoglobin 29.3 pg (27.0-31.0); Mean Corpuscular Volume 90.5 fL (78.0-98.0); Mean Platelet Volume 8.5 fL (7.4-10.4); Platelet Count 163 thou/uL (130-400); RBC Distribution Width 16.9 % (11.5-14.5); Red Blood Cell (RBC) Count 3.39 mill/uL (4.20-5.40); White Blood Cell (WBC) Count 4.9 thou/uL (4.8-10.8)
[2021-09-02 08:31] LABS: ALT (SGPT) 10 U/L (8-55); AST (SGOT) 22 U/L (5-34); Albumin 3.7 g/dL (3.4-4.8); Alkaline Phosphatase 67 U/L (40-110); Anion Gap 24 mmol/L (10-20); BUN (Urea Nitrogen) 40 mg/dL (9.8-20.1); Bilirubin, Total 0.6 mg/dL (0.2-1.2); Calc. Creatinine Clearance 0 mL/min (70-130); Calcium 9.5 mg/dL (7.8-10.44); Carbon Dioxide 23 mmol/L (23-31); Chloride 98 mmol/L (98-107); Globulin 3.3 g/dL (2.4-3.5); Glucose 101 mg/dL (83-110); Potassium 5.5 mmol/L (3.5-5.1); Sodium 139 mmol/L (136-145)
[2021-09-02 08:48] LABS: CKMB 1.3 ng/mL (0-6.6)
[2021-09-02] MEDS ORDERED: Azithromycin 500 MG VIAL ONE ×2 (09:24→09:26)
[2021-09-02] MEDS ORDERED: cefTRIAXone\\ROCEPHIN 1 GM VIAL ONE (09:24)
[2021-09-02] MEDS ORDERED: Acetaminophen 325 MG TAB PO PRN (10:50)
[2021-09-02] MEDS ORDERED: Ondansetron ODT 4 MG TAB PO PRN (10:50)
[2021-09-02 11:36] LABS: SARS-CoV-2 NAA Rapid Test Not Detected (NotDetected)
[2021-09-02 16:11] VITALS: BMI 22.8
[2021-09-02 17:58] LABS: Troponin I 0.048 ng/mL (< 0.028)
[2021-09-02] MEDS ORDERED: predniSONE 50 MG TAB PO SCH (20:00)
[2021-09-02 20:22] LABS: Troponin I 0.051 ng/mL (< 0.028)
[2021-09-02] MEDS: Carvedilol 25 MG TAB PO SCH (20:41)
[2021-09-02] MEDS: Heparin 5,000 UNITS/ML VIAL SC SCH (20:41)
[2021-09-02] MEDS: Atorvastatin Calcium 10 MG TAB PO SCH (20:41)
[2021-09-03] MEDS ORDERED: predniSONE 50 MG TAB PO SCH ×2 (02:00→08:00)
[2021-09-03 04:06] LABS: #Lymphocytes 0.6 thou/uL (1.20-3.40); #Monocytes 0.3 thou/uL (0.11-0.59); #Neutrophils 2.6 thou/uL (1.40-6.50); %Basophils 0.3 % (0.0-1.0); %Eosinophils 0.2 % (0.0-10.0); %Lymphocytes 18.1 % (21.0-51.0); %Monocytes 7.5 % (0.0-10.0); Hemoglobin 8.8 g/dL (12.0-16.0); Mean Corpuscular HGB CONC 32.2 g/dL (32.0-36.0); Mean Corpuscular Hemoglobin 29.3 pg (27.0-31.0); Mean Corpuscular Volume 90.9 fL (78.0-98.0); Mean Platelet Volume 8.1 fL (7.4-10.4); Platelet Count 144 thou/uL (130-400); RBC Distribution Width 16.6 % (11.5-14.5); Red Blood Cell (RBC) Count 2.99 mill/uL (4.20-5.40); White Blood Cell (WBC) Count 3.4 thou/uL (4.8-10.8)
[2021-09-03 04:27] LABS: Anion Gap 20 mmol/L (10-20); BUN (Urea Nitrogen) 31 mg/dL (9.8-20.1); Calc. Creatinine Clearance 10 mL/min (70-130); Calcium 9.3 mg/dL (7.8-10.44); Carbon Dioxide 25 mmol/L (23-31); Chloride 99 mmol/L (98-107); Glucose 177 mg/dL (83-110); Potassium 4.3 mmol/L (3.5-5.1); Sodium 140 mmol/L (136-145)
[2021-09-03] MEDS: Aspirin 81 mg Enteric Coated Tablet PO SCH (08:10)
[2021-09-03] MEDS: Carvedilol 25 MG TAB PO SCH ×2 (08:10→20:30)
[2021-09-03] MEDS: Heparin 5,000 UNITS/ML VIAL SC SCH ×2 (08:11→20:30)
[2021-09-03] MEDS: cefTRIAXone\\ROCEPHIN 1 GM in Sodium Chloride 0.9% 100 ML IVPB SCH (10:41)
[2021-09-03] MEDS: Azithromycin 500 MG in Sodium Chloride 0.9% 250 ML 250 ML IVPB SCH (11:02)
[2021-09-03] MEDS: Atorvastatin Calcium 10 MG TAB PO SCH (20:30)
[2021-09-04 04:33] LABS: #Lymphocytes 0.9 thou/uL (1.20-3.40); #Monocytes 0.4 thou/uL (0.11-0.59); #Neutrophils 4.2 thou/uL (1.40-6.50); %Basophils 0.8 % (0.0-1.0); %Eosinophils 0.1 % (0.0-10.0); %Lymphocytes 15.6 % (21.0-51.0); %Monocytes 7.3 % (0.0-10.0); %Neutrophils 76.2 % (42.0-75.0); Hemoglobin 7.6 g/dL (12.0-16.0); Mean Corpuscular HGB CONC 32.9 g/dL (32.0-36.0); Mean Corpuscular Hemoglobin 29.7 pg (27.0-31.0); Mean Corpuscular Volume 90.1 fL (78.0-98.0); Mean Platelet Volume 8.4 fL (7.4-10.4); Platelet Count 145 thou/uL (130-400); RBC Distribution Width 16.7 % (11.5-14.5); Red Blood Cell (RBC) Count 2.57 mill/uL (4.20-5.40); White Blood Cell (WBC) Count 5.5 thou/uL (4.8-10.8)
[2021-09-04 04:55] LABS: Anion Gap 20 mmol/L (10-20); BUN (Urea Nitrogen) 55 mg/dL (9.8-20.1); Calc. Creatinine Clearance 8 mL/min (70-130); Calcium 8.8 mg/dL (7.8-10.44); Carbon Dioxide 21 mmol/L (23-31); Chloride 96 mmol/L (98-107); Glucose 121 mg/dL (83-110); Potassium 4.3 mmol/L (3.5-5.1); Sodium 133 mmol/L (136-145)
[2021-09-04 07:04] LABS: Iron 168 ug/dL (50-170); Iron Binding Capacity, Total 174 mcg/dL (265-497)
[2021-09-04] MEDS ORDERED: Epoetin (ESRD) 10,000 UNITS/ML VIAL SC SCH (08:00)
[2021-09-04] MEDS: Heparin 5,000 UNITS/ML VIAL SC SCH ×2 (09:36→21:31)
[2021-09-04 12:07] LABS: Hemoglobin 8.7 g/dL (12.0-16.0)
[2021-09-04] MEDS: Carvedilol 25 MG TAB PO SCH ×2 (14:22→21:31)
[2021-09-04] MEDS: Aspirin 81 mg Enteric Coated Tablet PO SCH (14:22)
[2021-09-04] MEDS: cefTRIAXone\\ROCEPHIN 1 GM in Sodium Chloride 0.9% 100 ML IVPB SCH (14:22)
[2021-09-04] MEDS: Azithromycin 500 MG in Sodium Chloride 0.9% 250 ML 250 ML IVPB SCH (16:46)
[2021-09-04] MEDS: guaiFENesin ER 600 MG TAB PO SCH (21:30)
[2021-09-04] MEDS: Atorvastatin Calcium 10 MG TAB PO SCH (21:32)
[2021-09-04] MEDS ORDERED: LACTINEX 1 TAB PO SCH (22:18)
[2021-09-05 05:21] LABS: #Eosinphils 0.3 thou/uL (0.0-0.7); #Monocytes 0.4 thou/uL (0.11-0.59); #Neutrophils 2.3 thou/uL (1.40-6.50); %Basophils 0.6 % (0.0-1.0); %Eosinophils 6.8 % (0.0-10.0); %Lymphocytes 25.2 % (21.0-51.0); %Monocytes 10.5 % (0.0-10.0); Hemoglobin 8.8 g/dL (12.0-16.0); Mean Corpuscular HGB CONC 33.8 g/dL (32.0-36.0); Mean Corpuscular Hemoglobin 29.9 pg (27.0-31.0); Mean Corpuscular Volume 88.3 fL (78.0-98.0); Mean Platelet Volume 8.1 fL (7.4-10.4); Platelet Count 148 thou/uL (130-400); RBC Distribution Width 16.4 % (11.5-14.5); Red Blood Cell (RBC) Count 2.94 mill/uL (4.20-5.40)
[2021-09-05 05:47] LABS: Anion Gap 19 mmol/L (10-20); BUN (Urea Nitrogen) 22 mg/dL (9.8-20.1); Calc. Creatinine Clearance 13 mL/min (70-130); Calcium 8.6 mg/dL (7.8-10.44); Carbon Dioxide 26 mmol/L (23-31); Chloride 96 mmol/L (98-107); Glucose 79 mg/dL (83-110); Potassium 3.8 mmol/L (3.5-5.1); Sodium 137 mmol/L (136-145)
[2021-09-05] MEDS: Carvedilol 25 MG TAB PO SCH ×2 (09:03→21:01)
[2021-09-05] MEDS: cefTRIAXone\\ROCEPHIN 1 GM in Sodium Chloride 0.9% 100 ML IVPB SCH (09:03)
[2021-09-05] MEDS: Aspirin 81 mg Enteric Coated Tablet PO SCH (09:03)
[2021-09-05] MEDS: Heparin 5,000 UNITS/ML VIAL SC SCH ×2 (09:03→21:02)
[2021-09-05] MEDS: guaiFENesin ER 600 MG TAB PO SCH ×2 (09:03→21:01)
[2021-09-05] MEDS: Azithromycin 500 MG in Sodium Chloride 0.9% 250 ML 250 ML IVPB SCH (11:44)
[2021-09-05] MEDS: Atorvastatin Calcium 10 MG TAB PO SCH (21:01)
[2021-09-06 05:17] LABS: #Eosinphils 0.4 thou/uL (0.0-0.7); #Monocytes 0.5 thou/uL (0.11-0.59); #Neutrophils 1.9 thou/uL (1.40-6.50); %Basophils 0.6 % (0.0-1.0); %Eosinophils 9.4 % (0.0-10.0); %Lymphocytes 26.6 % (21.0-51.0); %Monocytes 14.3 % (0.0-10.0); %Neutrophils 49.2 % (42.0-75.0); Hemoglobin 8.7 g/dL (12.0-16.0); Mean Corpuscular HGB CONC 34.3 g/dL (32.0-36.0); Mean Corpuscular Hemoglobin 30.6 pg (27.0-31.0); Mean Corpuscular Volume 89.2 fL (78.0-98.0); Mean Platelet Volume 8.2 fL (7.4-10.4); Platelet Count 144 thou/uL (130-400); RBC Distribution Width 16.8 % (11.5-14.5); Red Blood Cell (RBC) Count 2.84 mill/uL (4.20-5.40); White Blood Cell (WBC) Count 3.8 thou/uL (4.8-10.8)
[2021-09-06 06:13] LABS: Anion Gap 18 mmol/L (10-20); BUN (Urea Nitrogen) 33 mg/dL (9.8-20.1); Calc. Creatinine Clearance 8 mL/min (70-130); Calcium 8.2 mg/dL (7.8-10.44); Carbon Dioxide 24 mmol/L (23-31); Chloride 96 mmol/L (98-107); Glucose 85 mg/dL (83-110); Potassium 3.9 mmol/L (3.5-5.1); Sodium 134 mmol/L (136-145)
[2021-09-06] MEDS ORDERED: Epoetin (ESRD) 10,000 UNITS/ML VIAL SC SCH (09:00)
[2021-09-06] MEDS: Aspirin 81 mg Enteric Coated Tablet PO SCH (09:50)
[2021-09-06] MEDS: Carvedilol 25 MG TAB PO SCH (09:50)
[2021-09-06] MEDS: guaiFENesin ER 600 MG TAB PO SCH (09:50)
[2021-09-06] MEDS: Heparin 5,000 UNITS/ML VIAL SC SCH (09:51)
[2021-09-06 16:12] VITALS: BP 132/63; TEMP 98
== END 2021-09-06 18:55 | disposition home or self-care (01) | DRG 193 ==
LOC: ERS 06:14 → ERHOLD 09:53 → 2NO 15:08 → OBSVTOIN 09-04 18:15
PROVIDERS: ADMIT Internal Medicine; ATTEND Internal Medicine
PROC: 5A1D70Z Performance of Urinary Filtration, Intermittent, Less than 6 Hours Per Day (ICD-10-PCS; principal; 2021-09-02)
DX: J18.9 Pneumonia, unspecified organism (principal); Z20.822 Contact with and (suspected) exposure to COVID-19; N18.6 End stage renal disease; I50.23 Acute on chronic systolic (congestive) heart failure; R04.2 Hemoptysis; R04.89 Hemorrhage from other sites in respiratory passages; E87.1 Hypo-osmolality and hyponatremia; I42.8 Other cardiomyopathies; J44.0 Chronic obstructive pulmonary disease with (acute) lower respiratory infection; I13.2 Hypertensive heart and chronic kidney disease with heart failure and with stage 5 chronic kidney disease, or end stage renal disease; I08.1 Rheumatic disorders of both mitral and tricuspid valves; I25.10 Atherosclerotic heart disease of native coronary artery without angina pectoris; E78.5 Hyperlipidemia, unspecified; E87.5 Hyperkalemia; R77.8 Other specified abnormalities of plasma proteins; D63.1 Anemia in chronic kidney disease; Z91.041 Radiographic dye allergy status; Z91.013 Allergy to seafood; Z99.2 Dependence on renal dialysis; Z86.19 Personal history of other infectious and parasitic diseases; Z86.73 Personal history of transient ischemic attack (TIA), and cerebral infarction without residual deficits; Z79.899 Other long term (current) drug therapy; Z79.82 Long term (current) use of aspirin; Z90.49 Acquired absence of other specified parts of digestive tract; Z95.810 Presence of automatic (implantable) cardiac defibrillator; Z98.890 Other specified postprocedural states; Z90.710 Acquired absence of both cervix and uterus; I25.2 Old myocardial infarction
CPT/HCPCS: 36415; 71045; 71275; 80048; 80053; 82553; 82728; 83540; 83550; 83880; 84145; 84484; 85025; 87040; 87070; 87149; 87205; 87804; 90935; 93005; 93306; 94640; 96365; 96367; 96372; 96375; 96376; G0257; G0378; J0456; J0696; J1644; J2930; J3490; J7050; J7512; J7620; Q4081; U0002

== ENCOUNTER 2021-11-15 08:10 | Emergency (ER) | payer MEDICARE, OTHER ==
[2021-11-15] MEDS ORDERED: methylPREDNISolone Sod Succ/PF 125 MG/2 ML VIAL ONE (08:46)
[2021-11-15 08:53] LABS: #Eosinphils 0.2 thou/uL (0.0-0.7); #Lymphocytes 1.6 thou/uL (1.20-3.40); #Monocytes 0.6 thou/uL (0.11-0.59); #Neutrophils 2.6 thou/uL (1.40-6.50); %Basophils 0.6 % (0.0-1.0); %Eosinophils 3.1 % (0.0-10.0); %Lymphocytes 31.7 % (21.0-51.0); %Monocytes 12.3 % (0.0-10.0); %Neutrophils 52.4 % (42.0-75.0); Hemoglobin 9.9 g/dL (12.0-16.0); Mean Corpuscular HGB CONC 31.6 g/dL (32.0-36.0); Mean Corpuscular Hemoglobin 28.8 pg (27.0-31.0); Mean Platelet Volume 7.4 fL (7.4-10.4); Platelet Count 184 thou/uL (130-400); RBC Distribution Width 17.3 % (11.5-14.5); Red Blood Cell (RBC) Count 3.45 mill/uL (4.20-5.40)
[2021-11-15] MEDS ORDERED: Dexamethasone 10 MG/ML VIAL ONE (09:05)
[2021-11-15 09:17] LABS: ALT (SGPT) 16 U/L (8-55); AST (SGOT) 24 U/L (5-34); Alkaline Phosphatase 74 U/L (40-110); Anion Gap 20 mmol/L (10-20); BUN (Urea Nitrogen) 39 mg/dL (9.8-20.1); Bilirubin, Total 0.6 mg/dL (0.2-1.2); Calc. Creatinine Clearance 0 mL/min (70-130); Calcium 9.4 mg/dL (7.8-10.44); Carbon Dioxide 28 mmol/L (23-31); Chloride 99 mmol/L (98-107); Estimated GFR 7; Glucose 119 mg/dL (83-110); Potassium 4.7 mmol/L (3.5-5.1); Sodium 142 mmol/L (136-145)
[2021-11-15 09:35] LABS: CKMB 3.5 ng/mL (0-6.6)
== END 2021-11-15 11:02 | disposition home or self-care (01) ==
LOC: ERS 08:10
DX: J44.1 Chronic obstructive pulmonary disease with (acute) exacerbation (principal); I13.0 Hypertensive heart and chronic kidney disease with heart failure and stage 1 through stage 4 chronic kidney disease, or unspecified chronic kidney disease; I50.9 Heart failure, unspecified; N18.9 Chronic kidney disease, unspecified; E78.5 Hyperlipidemia, unspecified; I25.2 Old myocardial infarction; Z99.2 Dependence on renal dialysis; Z79.82 Long term (current) use of aspirin; Z79.899 Other long term (current) drug therapy
CPT/HCPCS: 36415; 71045; 80053; 82553; 84484; 85025; 96372; J1100; J2930; J7620

== ENCOUNTER 2021-12-27 22:47 | Inpatient (IN) | payer MEDICARE, MEDICAID ==
[2021-12-28 00:42] LABS: #Eosinphils 0.1 thou/uL (0.0-0.7); #Lymphocytes 0.9 thou/uL (1.20-3.40); #Monocytes 0.4 thou/uL (0.11-0.59); #Neutrophils 6.7 thou/uL (1.40-6.50); %Basophils 0.3 % (0.0-1.0); %Eosinophils 0.9 % (0.0-10.0); %Lymphocytes 10.7 % (21.0-51.0); %Neutrophils 83.1 % (42.0-75.0); Hemoglobin 9.1 g/dL (12.0-16.0); Mean Corpuscular HGB CONC 34.3 g/dL (32.0-36.0); Mean Corpuscular Hemoglobin 30.2 pg (27.0-31.0); Mean Corpuscular Volume 87.9 fL (78.0-98.0); Mean Platelet Volume 8.1 fL (7.4-10.4); Platelet Count 136 thou/uL (130-400); RBC Distribution Width 15.6 % (11.5-14.5); Red Blood Cell (RBC) Count 3.02 mill/uL (4.20-5.40); White Blood Cell (WBC) Count 8.1 thou/uL (4.8-10.8)
[2021-12-28 01:03] LABS: ALT (SGPT) 15 U/L (8-55); AST (SGOT) 21 U/L (5-34); Albumin 3.6 g/dL (3.4-4.8); Alkaline Phosphatase 72 U/L (40-110); Anion Gap 23 mmol/L (10-20); BUN (Urea Nitrogen) 56 mg/dL (9.8-20.1); Bilirubin, Total 0.7 mg/dL (0.2-1.2); Calc. Creatinine Clearance 0 mL/min (70-130); Calcium 9.1 mg/dL (7.8-10.44); Carbon Dioxide 23 mmol/L (23-31); Chloride 99 mmol/L (98-107); Estimated GFR 6; Globulin 2.8 g/dL (2.4-3.5); Glucose 155 mg/dL (83-110); Potassium 5.8 mmol/L (3.5-5.1); Protein, Total 6.4 g/dL (5.8-8.1); Sodium 139 mmol/L (136-145)
[2021-12-28 01:24] LABS: CKMB 3.4 ng/mL (0-6.6)
[2021-12-28] MEDS ORDERED: Cefepime 2 GM VIAL ONE (02:25)
[2021-12-28 03:31] LABS: SARS-CoV-2 NAA Rapid Test Not Detected (NotDetected)
[2021-12-28] MEDS ORDERED: Vancomycin 1 GM/200 ML BAG ONE (03:43)
[2021-12-28 04:24] LABS: Troponin I 0.075 ng/mL (< 0.028)
[2021-12-28] MEDS ORDERED: Ondansetron PF 4 MG/2 ML Vial IVP PRN (06:39)
[2021-12-28] MEDS ORDERED: Acetaminophen 325 MG TAB PO PRN (06:39)
[2021-12-28 06:50] LABS: Troponin I 0.074 ng/mL (< 0.028)
[2021-12-28] MEDS ORDERED: Pantoprazole 40 MG VIAL ONE (07:55)
[2021-12-28] MEDS ORDERED: Mag-Al 1200 mg/1200 mg/30 ML UDCUP ONE (07:55)
[2021-12-28] MEDS ORDERED: Lidocaine Viscous Sol 2% 15 ml UD Cup ONE (07:55)
[2021-12-28] MEDS ORDERED: predniSONE 20 MG TAB ONE (07:55)
[2021-12-28 07:58] LABS: Hemoglobin 9.3 g/dL (12.0-16.0)
[2021-12-28] MEDS: Pantoprazole 40 MG VIAL IVP SCH (08:01)
[2021-12-28] MEDS: predniSONE 20 MG TAB PO SCH (08:01)
[2021-12-28] MEDS ORDERED: Dextrose 50% Abboject 50 ML SYRINGE SLOW IVP SCH (08:30)
[2021-12-28] MEDS ORDERED: Insulin Regular 300 UNITS/3 ML VIAL IVP SCH (08:30)
[2021-12-28 08:37] LABS: HBSAg Index 0.24 S/CO (0-0.99); Hep B Surf Ag Non-Reactive S/CO (NonReactive)
[2021-12-28] MEDS: Carvedilol 6.25 MG TAB PO SCH (19:58)
[2021-12-28] MEDS: Atorvastatin Calcium 10 MG TAB PO SCH (20:28)
[2021-12-29 04:54] LABS: #Lymphocytes 0.9 thou/uL (1.20-3.40); #Monocytes 0.6 thou/uL (0.11-0.59); %Basophils 0.4 % (0.0-1.0); %Eosinophils 0.2 % (0.0-10.0); %Lymphocytes 19.7 % (21.0-51.0); %Neutrophils 66.6 % (42.0-75.0); Mean Corpuscular HGB CONC 33.7 g/dL (32.0-36.0); Mean Corpuscular Hemoglobin 29.5 pg (27.0-31.0); Mean Corpuscular Volume 87.5 fL (78.0-98.0); Mean Platelet Volume 8.5 fL (7.4-10.4); Platelet Count 125 thou/uL (130-400); White Blood Cell (WBC) Count 4.6 thou/uL (4.8-10.8)
[2021-12-29 05:09] LABS: Anion Gap 19 mmol/L (10-20); BUN (Urea Nitrogen) 49 mg/dL (9.8-20.1); Calc. Creatinine Clearance 0 mL/min (70-130); Calcium 8.8 mg/dL (7.8-10.44); Carbon Dioxide 27 mmol/L (23-31); Chloride 95 mmol/L (98-107); Estimated GFR 7; Glucose 97 mg/dL (83-110); Potassium 5.7 mmol/L (3.5-5.1); Sodium 135 mmol/L (136-145)
[2021-12-29] MEDS ORDERED: Dextrose 50% Abboject 50 ML SYRINGE SLOW IVP SCH (07:00)
[2021-12-29] MEDS ORDERED: Insulin Regular 300 UNITS/3 ML VIAL IVP SCH (07:00)
[2021-12-29] MEDS ORDERED: LOKELMA 10 GM PACKET PO SCH (08:45)
[2021-12-29] MEDS: Amlodipine 10 MG TAB PO SCH (09:01)
[2021-12-29] MEDS: predniSONE 20 MG TAB PO SCH (09:02)
[2021-12-29] MEDS: Carvedilol 6.25 MG TAB PO SCH ×2 (09:02→16:55)
[2021-12-29] MEDS: Pantoprazole 40 MG VIAL IVP SCH (09:03)
[2021-12-29] MEDS ORDERED: HYDROcodone/Acetaminophen 5/325 mg Tablet ONE (11:35)
[2021-12-29] MEDS ORDERED: cefTRIAXone\\ROCEPHIN 1 GM in Sodium Chloride 0.9% 100 ML IVPB SCH (12:00)
[2021-12-29 17:15] LABS: Hemoglobin 8.4 g/dL (12.0-16.0); Platelet Count 126 thou/uL (130-400)
[2021-12-29] MEDS ORDERED: Pantoprazole 40 MG VIAL IVP SCH (21:00)
[2021-12-29] MEDS: Atorvastatin Calcium 10 MG TAB PO SCH (21:28)
[2021-12-30 04:41] LABS: #Basophils 0.1 thou/uL (0.0-0.2); #Monocytes 0.5 thou/uL (0.11-0.59); #Neutrophils 3.3 thou/uL (1.40-6.50); %Basophils 1.1 % (0.0-1.0); %Eosinophils 0.3 % (0.0-10.0); %Lymphocytes 19.7 % (21.0-51.0); %Monocytes 10.1 % (0.0-10.0); %Neutrophils 68.7 % (42.0-75.0); Hemoglobin 7.9 g/dL (12.0-16.0); Mean Corpuscular Hemoglobin 29.6 pg (27.0-31.0); Mean Platelet Volume 8.8 fL (7.4-10.4); Platelet Count 128 thou/uL (130-400); RBC Distribution Width 15.6 % (11.5-14.5); Red Blood Cell (RBC) Count 2.67 mill/uL (4.20-5.40); White Blood Cell (WBC) Count 4.9 thou/uL (4.8-10.8)
[2021-12-30 04:56] LABS: Anion Gap 23 mmol/L (10-20); BUN (Urea Nitrogen) 69 mg/dL (9.8-20.1); Calc. Creatinine Clearance 0 mL/min (70-130); Calcium 8.4 mg/dL (7.8-10.44); Carbon Dioxide 22 mmol/L (23-31); Chloride 91 mmol/L (98-107); Estimated GFR 5; Glucose 100 mg/dL (83-110); Sodium 130 mmol/L (136-145)
[2021-12-30] MEDS: Carvedilol 6.25 MG TAB PO SCH ×2 (08:45→17:15)
[2021-12-30] MEDS: Amlodipine 10 MG TAB PO SCH (08:45)
[2021-12-30] MEDS: predniSONE 20 MG TAB PO SCH (08:46)
[2021-12-30] MEDS ORDERED: EPOETIN ALFA-EPBX (ESRD) 4,000 UNIT/ML VIAL SC SCH (09:00)
[2021-12-30] MEDS ORDERED: Pantoprazole 40 MG VIAL IVP SCH (09:00)
[2021-12-30] MEDS ORDERED: Epoetin (ESRD) 10,000 UNITS/ML VIAL SC SCH (14:15)
[2021-12-30] MEDS: Atorvastatin Calcium 10 MG TAB PO SCH (20:46)
[2021-12-31 04:33] LABS: #Lymphocytes 0.9 thou/uL (1.20-3.40); #Monocytes 0.7 thou/uL (0.11-0.59); #Neutrophils 3.2 thou/uL (1.40-6.50); %Basophils 0.7 % (0.0-1.0); %Eosinophils 0.5 % (0.0-10.0); %Lymphocytes 18.1 % (21.0-51.0); %Monocytes 14.3 % (0.0-10.0); %Neutrophils 66.4 % (42.0-75.0); Mean Corpuscular HGB CONC 33.4 g/dL (32.0-36.0); Mean Corpuscular Hemoglobin 28.8 pg (27.0-31.0); Mean Corpuscular Volume 86.2 fL (78.0-98.0); Mean Platelet Volume 8.6 fL (7.4-10.4); Platelet Count 134 thou/uL (130-400); RBC Distribution Width 15.6 % (11.5-14.5); Red Blood Cell (RBC) Count 2.77 mill/uL (4.20-5.40); White Blood Cell (WBC) Count 4.8 thou/uL (4.8-10.8)
[2021-12-31 04:52] LABS: Anion Gap 19 mmol/L (10-20); BUN (Urea Nitrogen) 55 mg/dL (9.8-20.1); Calc. Creatinine Clearance 0 mL/min (70-130); Calcium 7.8 mg/dL (7.8-10.44); Carbon Dioxide 24 mmol/L (23-31); Chloride 94 mmol/L (98-107); Estimated GFR 7; Glucose 88 mg/dL (83-110); Potassium 4.7 mmol/L (3.5-5.1); Sodium 132 mmol/L (136-145)
[2021-12-31] MEDS ORDERED: Aspirin 81 mg Enteric Coated Tablet PO SCH (09:00)
[2021-12-31] MEDS ORDERED: LOKELMA 10 GM PACKET PO SCH (09:00)
[2021-12-31] MEDS ORDERED: Folic Acid/Vit B Comp W-C PO SCH (09:00)
[2021-12-31] MEDS: predniSONE 20 MG TAB PO SCH (09:44)
[2021-12-31] MEDS: Carvedilol 6.25 MG TAB PO SCH ×2 (09:44→17:33)
[2021-12-31] MEDS: Amlodipine 10 MG TAB PO SCH (09:44)
[2021-12-31 17:12] VITALS: BP 108/62; TEMP 97.5
== END 2021-12-31 19:19 | DRG 291 ==
LOC: ERS 22:47 → ERHOLD 12-28 02:26 → 2NO 12-28 16:52 → OBSVTOIN 12-29 11:27
PROVIDERS: ADMIT Family Medicine; ATTEND Family Medicine
PROC: 5A1D70Z Performance of Urinary Filtration, Intermittent, Less than 6 Hours Per Day (ICD-10-PCS; principal; 2021-12-28)
DX: I13.2 Hypertensive heart and chronic kidney disease with heart failure and with stage 5 chronic kidney disease, or end stage renal disease (principal); I50.43 Acute on chronic combined systolic (congestive) and diastolic (congestive) heart failure; N18.6 End stage renal disease; J44.1 Chronic obstructive pulmonary disease with (acute) exacerbation; R04.2 Hemoptysis; Z20.822 Contact with and (suspected) exposure to COVID-19; I42.8 Other cardiomyopathies; R77.8 Other specified abnormalities of plasma proteins; E87.5 Hyperkalemia; D63.1 Anemia in chronic kidney disease; T46.4X5A Adverse effect of angiotensin-converting-enzyme inhibitors, initial encounter; Z99.2 Dependence on renal dialysis; Z91.041 Radiographic dye allergy status; Z91.013 Allergy to seafood; Z86.19 Personal history of other infectious and parasitic diseases; Z79.899 Other long term (current) drug therapy; Z79.82 Long term (current) use of aspirin; Z95.810 Presence of automatic (implantable) cardiac defibrillator; Z90.49 Acquired absence of other specified parts of digestive tract; Z90.710 Acquired absence of both cervix and uterus; Z98.890 Other specified postprocedural states; Z82.49 Family history of ischemic heart disease and other diseases of the circulatory system; Z87.11 Personal history of peptic ulcer disease; Z86.010 Personal history of colon polyps; I25.2 Old myocardial infarction; Z87.19 Personal history of other diseases of the digestive system
CPT/HCPCS: 36415; 71045; 80048; 80053; 82553; 83880; 84145; 84484; 85025; 86850; 86900; 86901; 87340; 90935; 93005; 94640; 96375; 96376; C9113; G0257; G0378; J0692; J1815; J1956; J3370; J7512; J7620; J7999; Q4081; U0002

== ENCOUNTER 2022-05-20 09:10 | Outpatient (CLI) | payer MEDICARE, OTHER | END 2022-05-20 09:11 | disposition home or self-care (01) | LOC: BICULT 09:10 | PROVIDERS: ATTEND Physician Assistant Medical | DX: B18.2 Chronic viral hepatitis C (principal) | CPT/HCPCS: 76705 ==

== ENCOUNTER 2022-08-03 19:20 | Inpatient (IN) | payer MEDICARE, MEDICAID ==
[2022-08-03] MEDS ORDERED: HYDROcodone/Acetaminophen 5/325 mg Tablet ONE (19:32)
[2022-08-03] MEDS ORDERED: Morphine 2 MG/ML VIAL SLOW IVP PRN (22:08)
[2022-08-03] MEDS ORDERED: Ondansetron PF 4 MG/2 ML Vial IVP PRN (22:08)
[2022-08-03] MEDS ORDERED: Cyclobenzaprine 10 MG TAB PO PRN (22:12)
[2022-08-03 23:59] VITALS: BMI 25.4
[2022-08-04] MEDS: Acetaminophen 325 MG TAB PO SCH ×4 (00:13→17:30)
[2022-08-04] MEDS: Acetaminophen/Codeine 30-300mg Tablet PO SCH ×5 (00:13→23:29)
[2022-08-04] MEDS: Sodium Chloride 0.9% 1,000 ML IV SCH ×2 (00:25→09:20)
[2022-08-04 06:45] LABS: #Eosinphils 0.2 thou/uL (0.0-0.7); #Lymphocytes 1.5 thou/uL (1.20-3.40); #Monocytes 0.6 thou/uL (0.11-0.59); #Neutrophils 2.3 thou/uL (1.40-6.50); %Basophils 0.6 % (0.0-1.0); %Eosinophils 3.5 % (0.0-10.0); %Monocytes 13.6 % (0.0-10.0); %Neutrophils 50.3 % (42.0-75.0); Hemoglobin 9.9 g/dL (12.0-16.0); Mean Corpuscular HGB CONC 32.1 g/dL (32.0-36.0); Mean Corpuscular Hemoglobin 29.4 pg (27.0-31.0); Mean Corpuscular Volume 91.5 fl (78.0-98.0); Platelet Count 153 10x3/uL (130-400); Red Blood Cell (RBC) Count 3.36 mill/uL (4.20-5.40); White Blood Cell (WBC) Count 4.6 10x3/uL (4.8-10.8)
[2022-08-04 06:55] LABS: INR-International Normal Ratio 1.2; PTT 30.8 sec (22.9-36.1); Prothrombin Time 15.2 sec (12.0-14.7)
[2022-08-04 06:57] LABS: Anion Gap 19 mmol/L (10-20); BUN (Urea Nitrogen) 37 mg/dL (9.8-20.1); Calc. Creatinine Clearance 7 mL/min (70-130); Calcium 7.9 mg/dL (7.8-10.44); Carbon Dioxide 24 mmol/L (23-31); Chloride 103 mmol/L (98-107); Estimated GFR 6; Glucose 93 mg/dL (83-110); Potassium 3.7 mmol/L (3.5-5.1); Sodium 142 mmol/L (136-145)
[2022-08-04] MEDS ORDERED: Famotidine/PF 20 mg/2ml Vial SLOW IVP SCH (09:00)
[2022-08-04] MEDS: Gabapentin 100 MG CAP PO SCH ×2 (09:01→21:15)
[2022-08-04] MEDS: Polyethylene Glycol 3350 17 GM Packet PO SCH (09:01)
[2022-08-04] MEDS: Multivitamin W/ Minerals 1 TAB PO SCH (09:01)
[2022-08-04] MEDS: Senokot S 8.6-50 MG TAB PO SCH ×2 (09:01→21:15)
[2022-08-04 11:59] LABS: HBSAg Index 0.27 S/CO (0-0.99); Hep B Surf Ag Non-Reactive S/CO (NonReactive)
[2022-08-04 12:02] LABS: HBSAB Concentration 14.69 mIU/mL; Hep B Surf AB Reactive (NonReactive)
[2022-08-04] MEDS ORDERED: Ipratropium Bromide 2.5 ml Neb NEB PRN (15:50)
[2022-08-04] MEDS: Sevelamer Carbonate 800 MG TAB PO SCH (17:30)
[2022-08-04] MEDS ORDERED: Atorvastatin Calcium 10 MG TAB PO SCH (21:00)
[2022-08-04] MEDS ORDERED: Famotidine 20 MG TAB PO SCH (21:00)
[2022-08-04] MEDS: Carvedilol 25 MG TAB PO SCH (21:15)
[2022-08-04] MEDS: Sacubitril 24MG/Valsartan 26 MG TAB PO SCH (21:15)
[2022-08-05] MEDS: Acetaminophen 325 MG TAB PO SCH ×4 (01:24→17:28)
[2022-08-05] MEDS: Acetaminophen/Codeine 30-300mg Tablet PO SCH ×3 (06:00→16:21)
[2022-08-05 06:23] LABS: #Eosinphils 0.3 thou/uL (0.0-0.7); #Lymphocytes 1.3 thou/uL (1.20-3.40); #Monocytes 0.6 thou/uL (0.11-0.59); %Basophils 0.4 % (0.0-1.0); %Lymphocytes 30.1 % (21.0-51.0); %Monocytes 13.2 % (0.0-10.0); %Neutrophils 49.2 % (42.0-75.0); Hemoglobin 9.8 g/dL (12.0-16.0); Mean Corpuscular HGB CONC 32.2 g/dL (32.0-36.0); Mean Corpuscular Hemoglobin 29.4 pg (27.0-31.0); Mean Corpuscular Volume 91.4 fl (78.0-98.0); Mean Platelet Volume 8.1 fL (7.4-10.4); Platelet Count 125 10x3/uL (130-400); RBC Distribution Width 17.9 % (11.5-14.5); Red Blood Cell (RBC) Count 3.32 mill/uL (4.20-5.40); White Blood Cell (WBC) Count 4.1 10x3/uL (4.8-10.8)
[2022-08-05 06:45] LABS: Anion Gap 16 mmol/L (10-20); BUN (Urea Nitrogen) 23 mg/dL (9.8-20.1); Calc. Creatinine Clearance 10 mL/min (70-130); Carbon Dioxide 24 mmol/L (23-31); Chloride 100 mmol/L (98-107); Estimated GFR 10; Glucose 79 mg/dL (83-110); Magnesium 1.9 mg/dL (1.6-2.6); Phosphorus 4.7 mg/dL (2.3-4.7); Potassium 4.4 mmol/L (3.5-5.1); Sodium 136 mmol/L (136-145)
[2022-08-05] MEDS ORDERED: Aspirin 81 mg Enteric Coated Tablet PO SCH (09:00)
[2022-08-05] MEDS ORDERED: Folic Acid/Vit B Comp W-C PO SCH (09:00)
[2022-08-05] MEDS ORDERED: Amlodipine 10 MG TAB PO SCH (09:00)
[2022-08-05] MEDS ORDERED: Heparin 5,000 UNITS/ML VIAL SC SCH (09:00)
[2022-08-05] MEDS: Sevelamer Carbonate 800 MG TAB PO SCH ×3 (09:01→16:21)
[2022-08-05] MEDS: Senokot S 8.6-50 MG TAB PO SCH (09:01)
[2022-08-05] MEDS: Sacubitril 24MG/Valsartan 26 MG TAB PO SCH (09:01)
[2022-08-05] MEDS: Gabapentin 100 MG CAP PO SCH (09:01)
[2022-08-05] MEDS: Multivitamin W/ Minerals 1 TAB PO SCH (09:02)
[2022-08-05] MEDS: Carvedilol 25 MG TAB PO SCH (09:02)
[2022-08-05] MEDS: Polyethylene Glycol 3350 17 GM Packet PO SCH (09:02)
[2022-08-05 15:31] VITALS: BP 102/62; TEMP 97.5
== END 2022-08-05 18:52 | DRG 183 ==
LOC: ERS 19:20 → SURG A 22:08
PROVIDERS: ADMIT Specialist; ATTEND Specialist
PROC: 5A1D70Z Performance of Urinary Filtration, Intermittent, Less than 6 Hours Per Day (ICD-10-PCS; principal; 2022-08-04)
DX: S22.41XA Multiple fractures of ribs, right side, initial encounter for closed fracture (principal); N18.6 End stage renal disease; I50.22 Chronic systolic (congestive) heart failure; J44.9 Chronic obstructive pulmonary disease, unspecified; D63.1 Anemia in chronic kidney disease; S93.401A Sprain of unspecified ligament of right ankle, initial encounter; B19.20 Unspecified viral hepatitis C without hepatic coma; W18.39XA Other fall on same level, initial encounter; Y92.009 Unspecified place in unspecified non-institutional (private) residence as the place of occurrence of the external cause; Z90.49 Acquired absence of other specified parts of digestive tract; Z90.710 Acquired absence of both cervix and uterus; Z99.2 Dependence on renal dialysis; Z98.890 Other specified postprocedural states; Z82.49 Family history of ischemic heart disease and other diseases of the circulatory system; Z95.810 Presence of automatic (implantable) cardiac defibrillator; Z79.899 Other long term (current) drug therapy; Z79.82 Long term (current) use of aspirin
CPT/HCPCS: 36415; 36416; 71250; 80048; 83735; 84100; 85025; 85610; 85730; 86706; 86850; 86900; 86901; 87340; G0390; J1644; J2272; J7050

== ENCOUNTER 2022-08-16 11:44 | Inpatient (IN) | payer MEDICARE, MEDICAID ==
[2022-08-16 12:53] LABS: #Eosinphils 0.2 thou/uL (0.0-0.7); #Monocytes 0.9 thou/uL (0.11-0.59); #Neutrophils 4.2 thou/uL (1.40-6.50); %Basophils 0.6 % (0.0-1.0); %Eosinophils 2.9 % (0.0-10.0); %Monocytes 12.6 % (0.0-10.0); %Neutrophils 57.1 % (42.0-75.0); Hemoglobin 8.7 g/dL (12.0-16.0); Mean Corpuscular HGB CONC 34.2 g/dL (32.0-36.0); Mean Corpuscular Hemoglobin 30.1 pg (27.0-31.0); Mean Corpuscular Volume 87.9 fl (78.0-98.0); Mean Platelet Volume 7.5 fL (7.4-10.4); Platelet Count 220 10x3/uL (130-400); RBC Distribution Width 17.6 % (11.5-14.5); Red Blood Cell (RBC) Count 2.89 mill/uL (4.20-5.40); White Blood Cell (WBC) Count 7.4 10x3/uL (4.8-10.8)
[2022-08-16 13:13] LABS: ALT (SGPT) 16 U/L (8-55); AST (SGOT) 21 U/L (5-34); Albumin 3.5 g/dL (3.4-4.8); Alkaline Phosphatase 79 U/L (40-110); Anion Gap 20 mmol/L (10-20); BUN (Urea Nitrogen) 59 mg/dL (9.8-20.1); Bilirubin, Total 0.5 mg/dL (0.2-1.2); Calc. Creatinine Clearance 0 mL/min (70-130); Calcium 9.1 mg/dL (7.8-10.44); Carbon Dioxide 24 mmol/L (23-31); Chloride 91 mmol/L (98-107); Estimated GFR 7; Globulin 2.9 g/dL (2.4-3.5); Glucose 101 mg/dL (83-110); Protein, Total 6.4 g/dL (5.8-8.1); Sodium 128 mmol/L (136-145)
[2022-08-16 13:18] LABS: Potassium 7.1 mmol/L (3.5-5.1)
[2022-08-16 13:40] LABS: PTT Greater than 250.0 sec (22.9-36.1); Prothrombin Time Greater than 150.0 sec (12.0-14.7)
[2022-08-16] MEDS ORDERED: Albuterol 2.5 MG/0.5 ML NEB ONE (14:14)
[2022-08-16] MEDS ORDERED: Insulin Regular 300 UNITS/3 ML VIAL ONE (14:15)
[2022-08-16] MEDS ORDERED: Pantoprazole 40 MG VIAL ONE (14:15)
[2022-08-16] MEDS ORDERED: Dextrose 50% Abboject 50 ML SYRINGE ONE (14:15)
[2022-08-16 15:32] LABS: Iron 44 ug/dL (50-170); Iron Binding Capacity, Total 171 mcg/dL (265-497)
[2022-08-16] MEDS ORDERED: Acetaminophen 325 MG TAB PO PRN (15:45)
[2022-08-16] MEDS ORDERED: Albumin 25% 25 GM/100 ML BOT IVPB PRN (16:16)
[2022-08-16 20:18] VITALS: BMI 26.6
[2022-08-16 20:40] LABS: Hemoglobin 10.8 g/dL (12.0-16.0)
[2022-08-16 20:51] LABS: PTT 30.9 sec (22.9-36.1); Prothrombin Time 13.6 sec (12.0-14.7)
[2022-08-16] MEDS: Acetaminophen/Codeine 30-300mg Tablet PO SCH ×2 (21:11→21:13)
[2022-08-16] MEDS: Atorvastatin Calcium 10 MG TAB PO SCH (21:13)
[2022-08-16] MEDS: Sacubitril 24MG/Valsartan 26 MG TAB PO SCH (21:13)
[2022-08-16] MEDS: Carvedilol 25 MG TAB PO SCH (21:13)
[2022-08-16] MEDS: Sevelamer Carbonate 800 MG TAB PO SCH (21:14)
[2022-08-17] MEDS: Acetaminophen/Codeine 30-300mg Tablet PO SCH ×4 (05:57→22:38)
[2022-08-17 06:47] LABS: Hemoglobin 10.7 g/dL (12.0-16.0); Mean Corpuscular HGB CONC 33.9 g/dL (32.0-36.0); Mean Corpuscular Hemoglobin 29.5 pg (27.0-31.0); Mean Corpuscular Volume 87.1 fl (78.0-98.0); Mean Platelet Volume 7.4 fL (7.4-10.4); Platelet Count 191 10x3/uL (130-400); RBC Distribution Width 18.5 % (11.5-14.5); Red Blood Cell (RBC) Count 3.61 mill/uL (4.20-5.40); White Blood Cell (WBC) Count 5.1 10x3/uL (4.8-10.8)
[2022-08-17 08:06] LABS: Anion Gap 16 mmol/L (10-20); BUN (Urea Nitrogen) 26 mg/dL (9.8-20.1); Calc. Creatinine Clearance 14 mL/min (70-130); Calcium 8.9 mg/dL (7.8-10.44); Carbon Dioxide 26 mmol/L (23-31); Chloride 97 mmol/L (98-107); Estimated GFR 14; Glucose 78 mg/dL (83-110); Potassium 5.2 mmol/L (3.5-5.1); Sodium 134 mmol/L (136-145)
[2022-08-17] MEDS: Sevelamer Carbonate 800 MG TAB PO SCH ×3 (08:12→16:14)
[2022-08-17] MEDS: Folic Acid/Vit B Comp W-C PO SCH (08:12)
[2022-08-17] MEDS: Sacubitril 24MG/Valsartan 26 MG TAB PO SCH ×2 (08:12→22:38)
[2022-08-17] MEDS: Amlodipine 10 MG TAB PO SCH (08:12)
[2022-08-17] MEDS: Carvedilol 25 MG TAB PO SCH ×2 (08:12→22:39)
[2022-08-17 11:06] LABS: Band 21 % (5-11); Eosinophils 1 % (0-10); Lymphocytes 24 % (21-51); MDiff Complete? YES; Monocytes 15 % (0-10); Neutrophil 38 % (42-75); Platelet Morphology Comment Appears Adequate; Polychromasia SLIGHT = 2-3 cells (100X) (0-2/hpf)
[2022-08-17] MEDS: Atorvastatin Calcium 10 MG TAB PO SCH (22:38)
[2022-08-18] MEDS: Acetaminophen/Codeine 30-300mg Tablet PO SCH ×2 (06:25→12:54)
[2022-08-18] MEDS: Sacubitril 24MG/Valsartan 26 MG TAB PO SCH (08:25)
[2022-08-18] MEDS: Amlodipine 10 MG TAB PO SCH (08:25)
[2022-08-18] MEDS: Sevelamer Carbonate 800 MG TAB PO SCH ×2 (08:25→12:54)
[2022-08-18] MEDS: Folic Acid/Vit B Comp W-C PO SCH (08:25)
[2022-08-18] MEDS: Carvedilol 25 MG TAB PO SCH (08:25)
[2022-08-18 09:54] LABS: Hemoglobin 8.9 g/dL (12.0-16.0); Mean Corpuscular HGB CONC 32.6 g/dL (32.0-36.0); Mean Corpuscular Hemoglobin 28.3 pg (27.0-31.0); Mean Corpuscular Volume 86.6 fl (78.0-98.0); Mean Platelet Volume 7.3 fL (7.4-10.4); Platelet Count 185 10x3/uL (130-400); Red Blood Cell (RBC) Count 3.16 mill/uL (4.20-5.40); White Blood Cell (WBC) Count 4.5 10x3/uL (4.8-10.8)
[2022-08-18 10:08] LABS: Anion Gap 15 mmol/L (10-20); BUN (Urea Nitrogen) 27 mg/dL (9.8-20.1); Calc. Creatinine Clearance 13 mL/min (70-130); Calcium 8.5 mg/dL (7.8-10.44); Carbon Dioxide 27 mmol/L (23-31); Chloride 96 mmol/L (98-107); Estimated GFR 13; Glucose 102 mg/dL (83-110); Potassium 4.2 mmol/L (3.5-5.1); Sodium 134 mmol/L (136-145)
[2022-08-18 11:52] LABS: Band 4 % (5-11); Eosinophils 4 % (0-10); Lymphocytes 25 % (21-51); MDiff Complete? YES; Monocytes 14 % (0-10); Neutrophil 53 % (42-75); Platelet Morphology Comment Appears Adequate; RBC Morphology Normal
[2022-08-18 13:10] VITALS: BP 114/56; TEMP 97.1
[2022-08-21] MEDS ORDERED: EPOETIN ALFA-EPBX (ESRD) 10,000 UNITS/ML VIAL SC SCH (09:00)
== END 2022-08-18 17:00 | DRG 377 ==
LOC: ERS 11:44 → 2NO 14:27
PROVIDERS: ADMIT Internal Medicine; ATTEND Internal Medicine
PROC: 30233N1 Transfusion of Nonautologous Red Blood Cells into Peripheral Vein, Percutaneous Approach (ICD-10-PCS; principal; 2022-08-16)
PROC: 5A1D70Z Performance of Urinary Filtration, Intermittent, Less than 6 Hours Per Day (ICD-10-PCS; 2022-08-16)
DX: K92.1 Melena (principal); N18.6 End stage renal disease; D68.9 Coagulation defect, unspecified; I42.9 Cardiomyopathy, unspecified; E87.1 Hypo-osmolality and hyponatremia; E87.5 Hyperkalemia; B18.2 Chronic viral hepatitis C; D63.1 Anemia in chronic kidney disease; Z91.013 Allergy to seafood; Z95.810 Presence of automatic (implantable) cardiac defibrillator; Z99.2 Dependence on renal dialysis; Z91.041 Radiographic dye allergy status; Z79.51 Long term (current) use of inhaled steroids; Z79.899 Other long term (current) drug therapy; Z90.49 Acquired absence of other specified parts of digestive tract; Z90.710 Acquired absence of both cervix and uterus
CPT/HCPCS: 36415; 36430; 80048; 80053; 82728; 83540; 83550; 85025; 85610; 85730; 86850; 86900; 86901; 90935; 94760; 96374; 96375; C9113; G0257; J1815; J7611; J7999; P9016

== ENCOUNTER 2022-12-30 12:33 | Emergency (ER) | payer OTHER, MEDICAID, MEDICARE ==
[2022-12-30] MEDS ORDERED: Iopamidol-370 76% 500 ML MDV (1 ML CHARGE) ONE (12:49)
[2022-12-30 13:10] LABS: #Eosinphils 0.2 thou/uL (0.0-0.7); #Monocytes 0.8 thou/uL (0.11-0.59); #Neutrophils 3.4 thou/uL (1.40-6.50); %Basophils 0.7 % (0.0-1.0); %Monocytes 14.3 % (0.0-10.0); %Neutrophils 59.6 % (42.0-75.0); Hematocrit 36.6 % (36.0-47.0); Hemoglobin 11.3 g/dL (12.0-16.0); Mean Corpuscular HGB CONC 30.9 g/dL (32.0-36.0); Mean Corpuscular Hemoglobin 26.3 pg (27.0-31.0); Mean Corpuscular Volume 85.1 fl (78.0-98.0); Mean Platelet Volume 9.8 fL (7.4-10.4); Platelet Count 175 10x3/uL (130-400); RBC Distribution Width 18.5 % (11.5-14.5); White Blood Cell (WBC) Count 5.7 10x3/uL (4.8-10.8)
[2022-12-30 13:36] LABS: ALT (SGPT) 7 U/L (8-55); AST (SGOT) 15 U/L (5-34); Albumin 3.6 g/dL (3.4-4.8); Alkaline Phosphatase 87 U/L (40-110); Anion Gap 14 mmol/L (10-20); BUN (Urea Nitrogen) 16 mg/dL (9.8-20.1); Bilirubin, Total 0.3 mg/dL (0.2-1.2); Calc. Creatinine Clearance 0 mL/min (70-130); Calcium 8.8 mg/dL (7.8-10.44); Carbon Dioxide 27 mmol/L (23-31); Chloride 99 mmol/L (98-107); Estimated GFR 9; Globulin 3.3 g/dL (2.4-3.5); Glucose 105 mg/dL (83-110); Potassium 3.6 mmol/L (3.5-5.1); Protein, Total 6.9 g/dL (5.8-8.1); Sodium 136 mmol/L (136-145)
== END 2022-12-30 16:35 | disposition home or self-care (01) ==
LOC: ERS 12:33
DX: R19.7 Diarrhea, unspecified (principal); R42 Dizziness and giddiness; I13.0 Hypertensive heart and chronic kidney disease with heart failure and stage 1 through stage 4 chronic kidney disease, or unspecified chronic kidney disease; I50.9 Heart failure, unspecified; N18.9 Chronic kidney disease, unspecified; Z99.2 Dependence on renal dialysis; J44.9 Chronic obstructive pulmonary disease, unspecified
CPT/HCPCS: 36415; 70450; 71045; 74177; 80053; 85025; 93005; Q9967

== ENCOUNTER 2022-12-31 17:39 | Emergency (ER) | payer OTHER, MEDICAID, MEDICARE ==
[2022-12-31 18:19] LABS: #Eosinphils 0.1 thou/uL (0.0-0.7); #Monocytes 0.7 thou/uL (0.11-0.59); #Neutrophils 5.2 thou/uL (1.40-6.50); %Basophils 0.4 % (0.0-1.0); %Eosinophils 1.2 % (0.0-10.0); %Lymphocytes 10.7 % (21.0-51.0); %Monocytes 9.9 % (0.0-10.0); %Neutrophils 77.5 % (42.0-75.0); Hematocrit 38.2 % (36.0-47.0); Hemoglobin 12.1 g/dL (12.0-16.0); Mean Corpuscular HGB CONC 31.7 g/dL (32.0-36.0); Mean Corpuscular Hemoglobin 25.9 pg (27.0-31.0); Mean Corpuscular Volume 81.6 fl (78.0-98.0); Mean Platelet Volume 10.6 fL (7.4-10.4); Platelet Count 196 10x3/uL (130-400); RBC Distribution Width 18.3 % (11.5-14.5); Red Blood Cell (RBC) Count 4.68 mill/uL (4.20-5.40); White Blood Cell (WBC) Count 6.8 10x3/uL (4.8-10.8)
[2022-12-31 18:41] LABS: ALT (SGPT) 8 U/L (8-55); AST (SGOT) 15 U/L (5-34); Albumin 3.9 g/dL (3.4-4.8); Alkaline Phosphatase 88 U/L (40-110); Anion Gap 15 mmol/L (10-20); BUN (Urea Nitrogen) 7 mg/dL (9.8-20.1); Bilirubin, Total 0.3 mg/dL (0.2-1.2); Calc. Creatinine Clearance 0 mL/min (70-130); Calcium 9.7 mg/dL (7.8-10.44); Carbon Dioxide 28 mmol/L (23-31); Chloride 98 mmol/L (98-107); Estimated GFR 15; Globulin 3.5 g/dL (2.4-3.5); Glucose 124 mg/dL (83-110); Lipase 68 U/L (8-78); Potassium 3.2 mmol/L (3.5-5.1); Protein, Total 7.4 g/dL (5.8-8.1); Sodium 138 mmol/L (136-145)
[2022-12-31] MEDS ORDERED: Potassium Chloride 20 MEQ TAB ONE (19:06)
== END 2022-12-31 19:17 | disposition home or self-care (01) ==
LOC: ERS 17:39
DX: R19.7 Diarrhea, unspecified (principal); E78.5 Hyperlipidemia, unspecified; N19 Unspecified kidney failure; I11.0 Hypertensive heart disease with heart failure; I50.9 Heart failure, unspecified
CPT/HCPCS: 36415; 80053; 83690; 85025; 99284

== ENCOUNTER 2023-05-03 19:21 | Inpatient (IN) | payer OTHER, MEDICARE, MEDICAID ==
[2023-05-03] MEDS ORDERED: Morphine 2 MG/ML VIAL ONE (22:45)
[2023-05-03] MEDS ORDERED: Ondansetron PF 4 MG/2 ML Vial ONE (22:45)
[2023-05-04] MEDS ORDERED: Ondansetron PF 4 MG/2 ML Vial IVP PRN (01:09)
[2023-05-04] MEDS ORDERED: Ondansetron ODT 4 MG TAB PO PRN (01:09)
[2023-05-04] MEDS ORDERED: Acetaminophen 650 MG Suppository PR PRN (01:09)
[2023-05-04] MEDS ORDERED: Morphine 4 MG/ML VIAL SLOW IVP PRN (01:26)
[2023-05-04 01:48] VITALS: BMI 22.5
[2023-05-04] MEDS: Acetaminophen 325 MG TAB PO PRN ×2 (01:58→08:57)
[2023-05-04] MEDS ORDERED: Ipratropium/Albuterol 3 ML NEB NEB PRN (02:07)
[2023-05-04 04:46] LABS: #Eosinphils 0.1 thou/uL (0.0-0.7); #Monocytes 0.5 thou/uL (0.11-0.59); #Neutrophils 2.2 thou/uL (1.40-6.50); %Basophils 0.5 % (0.0-1.0); %Lymphocytes 34.5 % (21.0-51.0); %Monocytes 11.4 % (0.0-10.0); %Neutrophils 50.4 % (42.0-75.0); Hematocrit 30.5 % (36.0-47.0); Hemoglobin 9.7 g/dL (12.0-16.0); Mean Corpuscular HGB CONC 31.8 g/dL (32.0-36.0); Mean Corpuscular Hemoglobin 27.1 pg (27.0-31.0); Mean Corpuscular Volume 85.2 fl (78.0-98.0); Mean Platelet Volume 9.9 fL (7.4-10.4); Platelet Count 131 10x3/uL (130-400); RBC Distribution Width 17.7 % (11.5-14.5); Red Blood Cell (RBC) Count 3.58 mill/uL (4.20-5.40); White Blood Cell (WBC) Count 4.4 10x3/uL (4.8-10.8)
[2023-05-04 05:07] LABS: ALT (SGPT) 11 U/L (8-55); AST (SGOT) 16 U/L (5-34); Albumin 3.1 g/dL (3.4-4.8); Alkaline Phosphatase 105 U/L (40-110); Anion Gap 16 mmol/L (10-20); BUN (Urea Nitrogen) 38 mg/dL (9.8-20.1); Bilirubin, Total 0.5 mg/dL (0.2-1.2); Calc. Creatinine Clearance 6 mL/min (70-130); Carbon Dioxide 26 mmol/L (23-31); Chloride 104 mmol/L (98-107); Estimated GFR 7; Globulin 2.7 g/dL (2.4-3.5); Glucose 75 mg/dL (83-110); Potassium 4.4 mmol/L (3.5-5.1); Protein, Total 5.8 g/dL (5.8-8.1); Sodium 142 mmol/L (136-145)
[2023-05-04] MEDS: Heparin 5,000 UNITS/ML VIAL SC SCH ×2 (08:57→21:05)
[2023-05-05] MEDS: Acetaminophen 325 MG TAB PO PRN (07:09)
[2023-05-05] MEDS: Heparin 5,000 UNITS/ML VIAL SC SCH ×2 (08:52→20:33)
[2023-05-05] MEDS ORDERED: Acetaminophen 325 MG TAB PO PRN (15:43)
[2023-05-05] MEDS ORDERED: Ipratropium/Albuterol 3 ML NEB NEB PRN (15:43)
[2023-05-05] MEDS ORDERED: hydrALAZINE 20 MG/ML VIAL SLOW IVP PRN (15:49)
[2023-05-05] MEDS ORDERED: Amlodipine 5 MG TAB PO SCH (16:00)
[2023-05-05] MEDS: Sevelamer Carbonate 800 MG TAB PO SCH (16:25)
[2023-05-05] MEDS ORDERED: Polyethylene Glycol 3350 17 GM Packet PO SCH (17:00)
[2023-05-05] MEDS ORDERED: Bisacodyl 10 MG SUPP PR SCH (17:00)
[2023-05-05] MEDS: Acetaminophen/Codeine 30-300mg Tablet PO PRN (18:49)
[2023-05-05] MEDS: Atorvastatin Calcium 20 MG TAB PO SCH (20:33)
[2023-05-05] MEDS: Sacubitril 24MG/Valsartan 26 MG TAB PO SCH (20:33)
[2023-05-05] MEDS: Gabapentin 100 MG CAP PO SCH (20:33)
[2023-05-05] MEDS: Carvedilol 25 MG TAB PO SCH (20:33)
[2023-05-06 04:47] LABS: #Eosinphils 0.1 thou/uL (0.0-0.7); #Monocytes 0.5 thou/uL (0.11-0.59); #Neutrophils 1.4 thou/uL (1.40-6.50); %Basophils 0.6 % (0.0-1.0); %Eosinophils 3.7 % (0.0-10.0); %Lymphocytes 36.4 % (21.0-51.0); %Monocytes 14.6 % (0.0-10.0); %Neutrophils 44.4 % (42.0-75.0); Hemoglobin 9.6 g/dL (12.0-16.0); Mean Corpuscular Hemoglobin 26.9 pg (27.0-31.0); Mean Platelet Volume 9.3 fL (7.4-10.4); Platelet Count 122 10x3/uL (130-400); RBC Distribution Width 17.4 % (11.5-14.5); Red Blood Cell (RBC) Count 3.57 mill/uL (4.20-5.40); White Blood Cell (WBC) Count 3.2 10x3/uL (4.8-10.8)
[2023-05-06 05:20] LABS: Anion Gap 16 mmol/L (10-20); BUN (Urea Nitrogen) 37 mg/dL (9.8-20.1); Calc. Creatinine Clearance 7 mL/min (70-130); Calcium 8.1 mg/dL (7.8-10.44); Carbon Dioxide 27 mmol/L (23-31); Chloride 97 mmol/L (98-107); Estimated GFR 8; Glucose 78 mg/dL (83-110); Potassium 5.2 mmol/L (3.5-5.1); Sodium 135 mmol/L (136-145)
[2023-05-06] MEDS: Sevelamer Carbonate 800 MG TAB PO SCH ×2 (14:23→18:26)
[2023-05-06] MEDS: Carvedilol 25 MG TAB PO SCH ×2 (14:24→20:55)
[2023-05-06] MEDS: Folic Acid/Vit B Comp W-C PO SCH (14:24)
[2023-05-06] MEDS: Aspirin 81 mg Enteric Coated Tablet PO SCH (14:24)
[2023-05-06] MEDS: Sacubitril 24MG/Valsartan 26 MG TAB PO SCH ×2 (14:25→20:54)
[2023-05-06] MEDS: Amlodipine 5 MG TAB PO SCH (14:25)
[2023-05-06] MEDS: Heparin 5,000 UNITS/ML VIAL SC SCH ×2 (14:26→20:56)
[2023-05-06] MEDS: Lidocaine 4% Patch TD SCH (14:26)
[2023-05-06] MEDS: Famotidine 20 MG TAB PO SCH (14:41)
[2023-05-06] MEDS: Senokot 8.6 MG TAB PO SCH (20:54)
[2023-05-06] MEDS: Gabapentin 100 MG CAP PO SCH (20:55)
[2023-05-06] MEDS: Atorvastatin Calcium 20 MG TAB PO SCH (20:56)
[2023-05-06] MEDS: Transdermal Patch Removal TOP SCH (21:12)
[2023-05-07 05:14] LABS: Anion Gap 16 mmol/L (10-20); BUN (Urea Nitrogen) 19 mg/dL (9.8-20.1); Calc. Creatinine Clearance 11 mL/min (70-130); Calcium 8.6 mg/dL (7.8-10.44); Carbon Dioxide 29 mmol/L (23-31); Chloride 95 mmol/L (98-107); Estimated GFR 12; Glucose 75 mg/dL (83-110); Potassium 4.7 mmol/L (3.5-5.1); Sodium 135 mmol/L (136-145)
[2023-05-07] MEDS: Carvedilol 25 MG TAB PO SCH ×2 (08:13→20:23)
[2023-05-07] MEDS: Heparin 5,000 UNITS/ML VIAL SC SCH ×2 (08:13→20:23)
[2023-05-07] MEDS: Amlodipine 5 MG TAB PO SCH (08:13)
[2023-05-07] MEDS: Folic Acid/Vit B Comp W-C PO SCH (08:13)
[2023-05-07] MEDS: Sevelamer Carbonate 800 MG TAB PO SCH ×3 (08:14→16:30)
[2023-05-07] MEDS: Aspirin 81 mg Enteric Coated Tablet PO SCH (08:14)
[2023-05-07] MEDS: Lidocaine 4% Patch TD SCH (08:14)
[2023-05-07] MEDS: Sacubitril 24MG/Valsartan 26 MG TAB PO SCH ×2 (08:14→20:24)
[2023-05-07] MEDS: Atorvastatin Calcium 20 MG TAB PO SCH (20:23)
[2023-05-07] MEDS: Gabapentin 100 MG CAP PO SCH (20:23)
[2023-05-07] MEDS: Acetaminophen/Codeine 30-300mg Tablet PO PRN (20:24)
[2023-05-07] MEDS: Senokot 8.6 MG TAB PO SCH (20:24)
[2023-05-07] MEDS: Transdermal Patch Removal TOP SCH (22:06)
[2023-05-08] MEDS: Sacubitril 24MG/Valsartan 26 MG TAB PO SCH ×2 (08:30→21:09)
[2023-05-08] MEDS: Heparin 5,000 UNITS/ML VIAL SC SCH ×2 (08:30→21:09)
[2023-05-08] MEDS: Sevelamer Carbonate 800 MG TAB PO SCH ×3 (08:30→16:46)
[2023-05-08] MEDS: Folic Acid/Vit B Comp W-C PO SCH (08:30)
[2023-05-08] MEDS: Lidocaine 4% Patch TD SCH (08:30)
[2023-05-08] MEDS: Aspirin 81 mg Enteric Coated Tablet PO SCH (08:30)
[2023-05-08] MEDS: Carvedilol 25 MG TAB PO SCH ×2 (08:30→21:09)
[2023-05-08] MEDS: Amlodipine 5 MG TAB PO SCH (08:30)
[2023-05-08] MEDS: Acetaminophen/Codeine 30-300mg Tablet PO PRN (16:50)
[2023-05-08] MEDS: Atorvastatin Calcium 20 MG TAB PO SCH (21:09)
[2023-05-08] MEDS: Senokot 8.6 MG TAB PO SCH (21:09)
[2023-05-08] MEDS: Gabapentin 100 MG CAP PO SCH (21:09)
[2023-05-08] MEDS: Transdermal Patch Removal TOP SCH (21:15)
[2023-05-09 04:21] LABS: Hematocrit 29.2 % (36.0-47.0); Hemoglobin 9.5 g/dL (12.0-16.0); Mean Corpuscular HGB CONC 32.5 g/dL (32.0-36.0); Mean Corpuscular Hemoglobin 26.8 pg (27.0-31.0); Mean Corpuscular Volume 82.5 fl (78.0-98.0); Platelet Count 156 10x3/uL (130-400); RBC Distribution Width 17.3 % (11.5-14.5); Red Blood Cell (RBC) Count 3.54 mill/uL (4.20-5.40); White Blood Cell (WBC) Count 3.1 10x3/uL (4.8-10.8)
[2023-05-09 04:56] LABS: Anion Gap 17 mmol/L (10-20); BUN (Urea Nitrogen) 53 mg/dL (9.8-20.1); Calc. Creatinine Clearance 6 mL/min (70-130); Carbon Dioxide 27 mmol/L (23-31); Chloride 93 mmol/L (98-107); Estimated GFR 6; Glucose 85 mg/dL (83-110); Potassium 5.9 mmol/L (3.5-5.1); Sodium 131 mmol/L (136-145)
[2023-05-09] MEDS ORDERED: EPOETIN ALFA-EPBX (ESRD) 10,000 UNITS/ML VIAL SC SCH (09:00)
[2023-05-09] MEDS: Sevelamer Carbonate 800 MG TAB PO SCH ×3 (10:58→17:23)
[2023-05-09] MEDS: Heparin 5,000 UNITS/ML VIAL SC SCH (15:37)
[2023-05-09] MEDS: Carvedilol 25 MG TAB PO SCH (15:37)
[2023-05-09] MEDS: Famotidine 20 MG TAB PO SCH (15:43)
[2023-05-09] MEDS: Folic Acid/Vit B Comp W-C PO SCH (15:43)
[2023-05-09] MEDS: Sacubitril 24MG/Valsartan 26 MG TAB PO SCH (15:43)
[2023-05-09] MEDS: Aspirin 81 mg Enteric Coated Tablet PO SCH (15:43)
[2023-05-09] MEDS: Amlodipine 5 MG TAB PO SCH (15:43)
[2023-05-09] MEDS: Lidocaine 4% Patch TD SCH (15:43)
[2023-05-09 19:41] VITALS: BP 133/62; TEMP 98.2
== END 2023-05-09 20:10 | DRG 551 ==
LOC: ERS 19:21 → SJJU 05-04 00:46 → 2NO 05-04 05:03 → OBSVTOIN 05-06 08:19 → IMCU/EMU 05-06 08:21 → 2NO 05-06 08:21
PROVIDERS: ADMIT Student in an Organized Health Care Education/Training Program; ATTEND Hospitalist
DX: S32.10XA Unspecified fracture of sacrum, initial encounter for closed fracture (principal); N18.6 End stage renal disease; S32.018A Other fracture of first lumbar vertebra, initial encounter for closed fracture; E87.1 Hypo-osmolality and hyponatremia; I13.2 Hypertensive heart and chronic kidney disease with heart failure and with stage 5 chronic kidney disease, or end stage renal disease; I50.22 Chronic systolic (congestive) heart failure; E78.5 Hyperlipidemia, unspecified; W19.XXXA Unspecified fall, initial encounter; D63.1 Anemia in chronic kidney disease; J44.9 Chronic obstructive pulmonary disease, unspecified; Z90.49 Acquired absence of other specified parts of digestive tract; Z90.710 Acquired absence of both cervix and uterus; Z98.890 Other specified postprocedural states; I25.2 Old myocardial infarction; Z91.013 Allergy to seafood; Z91.09 Other allergy status, other than to drugs and biological substances; Z99.2 Dependence on renal dialysis; Z95.810 Presence of automatic (implantable) cardiac defibrillator; Z79.82 Long term (current) use of aspirin; Z79.899 Other long term (current) drug therapy; Y92.89 Other specified places as the place of occurrence of the external cause; E87.5 Hyperkalemia
CPT/HCPCS: 36415; 72125; 72128; 72131; 80048; 80053; 85025; 85027; 90935; 93005; 96372; 96374; 96375; G0257; G0378; J1644; J2272; J2405; Q5105

== ENCOUNTER 2023-06-02 09:33 | Inpatient (IN) | payer MEDICARE, MEDICAID ==
[2023-06-02 10:17] LABS: #Eosinphils 0.1 thou/uL (0.0-0.7); #Monocytes 0.6 thou/uL (0.11-0.59); #Neutrophils 4.3 thou/uL (1.40-6.50); %Basophils 0.3 % (0.0-1.0); %Lymphocytes 20.4 % (21.0-51.0); %Monocytes 9.1 % (0.0-10.0); %Neutrophils 68.9 % (42.0-75.0); Hematocrit 28.4 % (36.0-47.0); Mean Corpuscular HGB CONC 31.7 g/dL (32.0-36.0); Mean Corpuscular Hemoglobin 27.5 pg (27.0-31.0); Mean Corpuscular Volume 86.9 fl (78.0-98.0); Mean Platelet Volume 9.7 fL (7.4-10.4); Platelet Count 164 10x3/uL (130-400); Red Blood Cell (RBC) Count 3.27 mill/uL (4.20-5.40); White Blood Cell (WBC) Count 6.2 10x3/uL (4.8-10.8)
[2023-06-02 10:44] LABS: ALT (SGPT) 13 U/L (8-55); AST (SGOT) 27 U/L (5-34); Albumin 3.7 g/dL (3.4-4.8); Alkaline Phosphatase 113 U/L (40-110); Anion Gap 17 mmol/L (10-20); BUN (Urea Nitrogen) 20 mg/dL (9.8-20.1); Bilirubin, Total 0.6 mg/dL (0.2-1.2); Calc. Creatinine Clearance 0 mL/min (70-130); Calcium 9.7 mg/dL (7.8-10.44); Carbon Dioxide 30 mmol/L (23-31); Chloride 100 mmol/L (98-107); Estimated GFR 10; Globulin 3.6 g/dL (2.4-3.5); Glucose 141 mg/dL (83-110); Potassium 4.5 mmol/L (3.5-5.1); Protein, Total 7.3 g/dL (5.8-8.1); Sodium 142 mmol/L (136-145)
[2023-06-02 11:14] LABS: Troponin I 0.043 ng/mL (< 0.028)
[2023-06-02 11:32] LABS: SARS-CoV-2 NAA Rapid Test Not Detected (NotDetected)
[2023-06-02] MEDS ORDERED: Furosemide 40 MG (4 mL) VIAL ONE (12:00)
[2023-06-02] MEDS ORDERED: Aspirin Chewable 81 MG TAB ONE (12:01)
[2023-06-02] MEDS ORDERED: Ondansetron PF 4 MG/2 ML Vial IVP PRN (13:59)
[2023-06-02] MEDS ORDERED: Acetaminophen 325 MG TAB PO PRN (13:59)
[2023-06-02] MEDS ORDERED: Ondansetron ODT 4 MG TAB PO PRN (13:59)
[2023-06-02] MEDS ORDERED: Heparin 5,000 UNITS/ML VIAL ONE (16:33)
[2023-06-02] MEDS: Heparin 5,000 UNITS/ML VIAL SC SCH (16:37)
[2023-06-02] MEDS: Sevelamer Carbonate 800 MG TAB PO SCH (16:37)
[2023-06-02] MEDS: Ipratropium/Albuterol 3 ML NEB NEB PRN (20:40)
[2023-06-02] MEDS: Sacubitril 24MG/Valsartan 26 MG TAB PO SCH (21:04)
[2023-06-02] MEDS: Gabapentin 100 MG CAP PO SCH (21:04)
[2023-06-02] MEDS: Atorvastatin Calcium 20 MG TAB PO SCH (21:06)
[2023-06-03] MEDS: Aspirin 81 mg Enteric Coated Tablet PO SCH (10:51)
[2023-06-03] MEDS: Lidocaine 4% Patch TD SCH (10:52)
[2023-06-03] MEDS ORDERED: Carvedilol 25 MG TAB PO SCH (11:30)
[2023-06-03] MEDS: Amlodipine 5 MG TAB PO SCH (11:43)
[2023-06-03] MEDS: Carvedilol 25 MG TAB PO SCH ×2 (11:43→20:47)
[2023-06-03 12:12] VITALS: BMI 23.7
[2023-06-03] MEDS: Famotidine 20 MG TAB PO SCH (18:13)
[2023-06-03 18:48] LABS: #Eosinphils 0.1 thou/uL (0.0-0.7); #Monocytes 0.5 thou/uL (0.11-0.59); #Neutrophils 2.7 thou/uL (1.40-6.50); %Basophils 0.2 % (0.0-1.0); %Eosinophils 2.5 % (0.0-10.0); %Lymphocytes 18.4 % (21.0-51.0); %Monocytes 11.8 % (0.0-10.0); %Neutrophils 66.6 % (42.0-75.0); Hematocrit 26.4 % (36.0-47.0); Hemoglobin 8.3 g/dL (12.0-16.0); Mean Corpuscular HGB CONC 31.4 g/dL (32.0-36.0); Mean Corpuscular Hemoglobin 27.8 pg (27.0-31.0); Mean Corpuscular Volume 88.3 fl (78.0-98.0); Platelet Count 155 10x3/uL (130-400); RBC Distribution Width 19.1 % (11.5-14.5); Red Blood Cell (RBC) Count 2.99 mill/uL (4.20-5.40); White Blood Cell (WBC) Count 4.1 10x3/uL (4.8-10.8)
[2023-06-03 19:23] LABS: ALT (SGPT) 10 U/L (8-55); AST (SGOT) 14 U/L (5-34); Albumin 3.6 g/dL (3.4-4.8); Alkaline Phosphatase 100 U/L (40-110); Anion Gap 13 mmol/L (10-20); BUN (Urea Nitrogen) 6 mg/dL (9.8-20.1); Bilirubin, Total 0.5 mg/dL (0.2-1.2); Calc. Creatinine Clearance 30 mL/min (70-130); Calcium 8.8 mg/dL (7.8-10.44); Carbon Dioxide 28 mmol/L (23-31); Chloride 100 mmol/L (98-107); Estimated GFR 41; Globulin 3.1 g/dL (2.4-3.5); Glucose 93 mg/dL (83-110); Potassium 2.9 mmol/L (3.5-5.1); Protein, Total 6.7 g/dL (5.8-8.1); Sodium 138 mmol/L (136-145)
[2023-06-03] MEDS: Transdermal Patch Removal TOP SCH (22:21)
[2023-06-04 05:03] LABS: #Eosinphils 0.2 thou/uL (0.0-0.7); #Monocytes 0.5 thou/uL (0.11-0.59); #Neutrophils 1.5 thou/uL (1.40-6.50); %Basophils 0.7 % (0.0-1.0); %Eosinophils 7.4 % (0.0-10.0); %Lymphocytes 24.8 % (21.0-51.0); %Monocytes 15.4 % (0.0-10.0); %Neutrophils 51.4 % (42.0-75.0); Hemoglobin 8.5 g/dL (12.0-16.0); Mean Corpuscular HGB CONC 31.5 g/dL (32.0-36.0); Mean Corpuscular Hemoglobin 27.5 pg (27.0-31.0); Mean Corpuscular Volume 87.4 fl (78.0-98.0); Mean Platelet Volume 10.5 fL (7.4-10.4); Platelet Count 157 10x3/uL (130-400); RBC Distribution Width 18.7 % (11.5-14.5); Red Blood Cell (RBC) Count 3.09 mill/uL (4.20-5.40)
[2023-06-04 05:35] LABS: ALT (SGPT) 8 U/L (8-55); AST (SGOT) 13 U/L (5-34); Albumin 3.2 g/dL (3.4-4.8); Alkaline Phosphatase 92 U/L (40-110); Anion Gap 10 mmol/L (10-20); BUN (Urea Nitrogen) 15 mg/dL (9.8-20.1); Bilirubin, Total 0.5 mg/dL (0.2-1.2); Calc. Creatinine Clearance 13 mL/min (70-130); Calcium 8.7 mg/dL (7.8-10.44); Carbon Dioxide 31 mmol/L (23-31); Chloride 101 mmol/L (98-107); Estimated GFR 15; Globulin 2.9 g/dL (2.4-3.5); Glucose 83 mg/dL (83-110); Potassium 3.8 mmol/L (3.5-5.1); Protein, Total 6.1 g/dL (5.8-8.1); Sodium 138 mmol/L (136-145)
[2023-06-04] MEDS: Amlodipine 5 MG TAB PO SCH (10:07)
[2023-06-04] MEDS: Folic Acid/Vit B Comp W-C PO SCH (10:08)
[2023-06-04] MEDS: Senokot S 8.6-50 MG TAB PO SCH ×2 (13:54→20:43)
[2023-06-05 05:36] LABS: #Eosinphils 0.2 thou/uL (0.0-0.7); #Monocytes 0.5 thou/uL (0.11-0.59); #Neutrophils 1.3 thou/uL (1.40-6.50); %Basophils 0.7 % (0.0-1.0); %Eosinophils 6.6 % (0.0-10.0); %Lymphocytes 32.7 % (21.0-51.0); %Monocytes 16.5 % (0.0-10.0); %Neutrophils 43.5 % (42.0-75.0); Hematocrit 25.5 % (36.0-47.0); Mean Corpuscular HGB CONC 31.4 g/dL (32.0-36.0); Mean Corpuscular Hemoglobin 27.6 pg (27.0-31.0); Mean Corpuscular Volume 87.9 fl (78.0-98.0); Mean Platelet Volume 9.7 fL (7.4-10.4); Platelet Count 153 10x3/uL (130-400); RBC Distribution Width 18.5 % (11.5-14.5)
[2023-06-05 06:07] LABS: ALT (SGPT) 8 U/L (8-55); AST (SGOT) 12 U/L (5-34); Alkaline Phosphatase 84 U/L (40-110); Anion Gap 11 mmol/L (10-20); BUN (Urea Nitrogen) 30 mg/dL (9.8-20.1); Bilirubin, Total 0.4 mg/dL (0.2-1.2); Calc. Creatinine Clearance 8 mL/min (70-130); Calcium 8.5 mg/dL (7.8-10.44); Carbon Dioxide 31 mmol/L (23-31); Chloride 100 mmol/L (98-107); Estimated GFR 9; Globulin 2.8 g/dL (2.4-3.5); Glucose 98 mg/dL (83-110); Potassium 3.8 mmol/L (3.5-5.1); Protein, Total 5.8 g/dL (5.8-8.1); Sodium 138 mmol/L (136-145)
[2023-06-06] MEDS ORDERED: Darbepoetin Alfa in Polysorbat 25 MCG/ML VIAL SC SCH (09:00)
[2023-06-06 16:09] VITALS: BP 130/62; TEMP 98.2
== END 2023-06-06 17:26 | disposition home or self-care (01) | DRG 291 ==
LOC: ERS 09:33 → ERHOLD 12:31 → 2SW 19:31 → OBSVTOIN 06-04 10:30
PROVIDERS: ADMIT Family Medicine; ATTEND Internal Medicine
PROC: 5A1D70Z Performance of Urinary Filtration, Intermittent, Less than 6 Hours Per Day (ICD-10-PCS; principal; 2023-06-03)
DX: I13.2 Hypertensive heart and chronic kidney disease with heart failure and with stage 5 chronic kidney disease, or end stage renal disease (principal); I50.43 Acute on chronic combined systolic (congestive) and diastolic (congestive) heart failure; N18.6 End stage renal disease; I42.9 Cardiomyopathy, unspecified; J44.9 Chronic obstructive pulmonary disease, unspecified; E78.5 Hyperlipidemia, unspecified; R77.8 Other specified abnormalities of plasma proteins; D63.1 Anemia in chronic kidney disease; J45.909 Unspecified asthma, uncomplicated; Z98.890 Other specified postprocedural states; Z90.710 Acquired absence of both cervix and uterus; Z90.49 Acquired absence of other specified parts of digestive tract; Z99.2 Dependence on renal dialysis; Z95.810 Presence of automatic (implantable) cardiac defibrillator; Z88.5 Allergy status to narcotic agent; Z91.013 Allergy to seafood; Z79.82 Long term (current) use of aspirin; Z79.899 Other long term (current) drug therapy; Z82.49 Family history of ischemic heart disease and other diseases of the circulatory system; Z11.52 Encounter for screening for COVID-19
CPT/HCPCS: 0241U; 36415; 71045; 80053; 83735; 83880; 84484; 85025; 90935; 93005; 94640; 94760; 96372; 96374; 97139; G0257; G0378; J1644; J1940; J7620

== ENCOUNTER 2023-09-04 05:41 | Day surgery (SDC) | payer MEDICARE, MEDICAID ==
[2023-08-31 11:23] VITALS: BMI 24.0
[2023-09-04] MEDS ORDERED: Etomidate 40 MG (20 mL) VIAL ONE (07:27)
[2023-09-04] MEDS ORDERED: PHENYLEPHRINE-NS 100 MCG/ML 10 ML SYRINGE ONE (07:29)
[2023-09-04] MEDS ORDERED: Midazolam HCl 2 mg/2 ml Vial ONE (07:30)
[2023-09-04] MEDS ORDERED: PROPOFOL 40 ML ONE (07:30)
[2023-09-04] MEDS ORDERED: ePHEDrine Sulfate 50 MG/10 ML VIAL ONE (07:30)
[2023-09-04] MEDS ORDERED: Glycopyrrolate 0.2 MG/ML 5 ML SYRINGE ONE (07:42)
== END 2023-09-04 10:15 | disposition home or self-care (01) ==
LOC: SDC 05:41
PROVIDERS: ATTEND Internal Medicine Gastroenterology
PROC: 0DBN8ZZ Excision of Sigmoid Colon, Via Natural or Artificial Opening Endoscopic (ICD-10-PCS; principal; 2023-09-04)
DX: Z12.11 Encounter for screening for malignant neoplasm of colon (principal); K57.30 Diverticulosis of large intestine without perforation or abscess without bleeding; K51.40 Inflammatory polyps of colon without complications; K21.9 Gastro-esophageal reflux disease without esophagitis; D64.9 Anemia, unspecified; M19.90 Unspecified osteoarthritis, unspecified site; I13.2 Hypertensive heart and chronic kidney disease with heart failure and with stage 5 chronic kidney disease, or end stage renal disease; I50.9 Heart failure, unspecified; N18.6 End stage renal disease; Z99.2 Dependence on renal dialysis; B18.2 Chronic viral hepatitis C; J45.909 Unspecified asthma, uncomplicated; Z90.49 Acquired absence of other specified parts of digestive tract; Z98.49 Cataract extraction status, unspecified eye; Z90.710 Acquired absence of both cervix and uterus; Z95.810 Presence of automatic (implantable) cardiac defibrillator; Z86.010 Personal history of colon polyps; Z79.82 Long term (current) use of aspirin; Z79.899 Other long term (current) drug therapy; Z91.041 Radiographic dye allergy status; Z91.013 Allergy to seafood
CPT/HCPCS: 88305; J2250; J2704

== ENCOUNTER 2023-09-20 05:19 | Inpatient (IN) | payer MEDICARE, MEDICAID ==
[2023-09-20] MEDS ORDERED: Dexamethasone 10 MG/ML VIAL ONE (06:00)
[2023-09-20] MEDS ORDERED: Ipratropium/Albuterol 3 ML NEB ONE ×2 (06:03→07:45)
[2023-09-20] MEDS ORDERED: Albuterol 2.5 MG (3 mL) NEB ONE ×2 (06:03→07:45)
[2023-09-20 06:13] LABS: #Basophils Less than 0.03 10x3/uL (0.0-0.2); %Basophils 0.3 % (0.0-1.0); %Lymphocytes 28.9 % (21.0-51.0); %Neutrophils 52.5 % (42.0-75.0); Hematocrit 30.9 % (36.0-47.0); Mean Corpuscular HGB CONC 32.4 g/dL (32.0-36.0); Mean Corpuscular Hemoglobin 27.3 pg (27.0-31.0); Mean Corpuscular Volume 84.4 fL (78.0-98.0); Mean Platelet Volume 9.9 fL (7.4-10.4); Platelet Count 145 10x3/uL (130-400); RBC Distribution Width 18.3 % (11.5-14.5); Red Blood Cell (RBC) Count 3.66 mill/uL (4.20-5.40)
[2023-09-20 06:35] LABS: ALT (SGPT) 19 U/L (8-55); AST (SGOT) 30 U/L (5-34); Albumin 3.3 g/dL (3.4-4.8); Alkaline Phosphatase 116 U/L (40-110); Anion Gap 17 mmol/L (10-20); BUN (Urea Nitrogen) 19 mg/dL (9.8-20.1); Bilirubin, Total 0.5 mg/dL (0.2-1.2); Calc. Creatinine Clearance 0 mL/min (70-130); Calcium 8.9 mg/dL (7.8-10.44); Carbon Dioxide 26 mmol/L (23-31); Chloride 103 mmol/L (98-107); Estimated GFR 9; Glucose 104 mg/dL (83-110); Potassium 4.3 mmol/L (3.5-5.1); Protein, Total 7.3 g/dL (5.8-8.1); Sodium 142 mmol/L (136-145)
[2023-09-20] MEDS ORDERED: Ondansetron PF 4 MG/2 ML Vial IVP PRN (07:40)
[2023-09-20] MEDS ORDERED: Acetaminophen 325 MG TAB PO PRN (07:40)
[2023-09-20] MEDS ORDERED: Calcium Carbonate 500 MG ChewTAB PO PRN (07:40)
[2023-09-20] MEDS ORDERED: Ipratropium/Albuterol 3 ML NEB NEB PRN (07:41)
[2023-09-20 10:11] VITALS: BMI 22.6
[2023-09-20] MEDS: Folic Acid/Vit B Comp W-C PO SCH (12:06)
[2023-09-20] MEDS: Sevelamer Carbonate 800 MG TAB PO SCH (12:07)
[2023-09-20] MEDS: Aspirin 81 mg Enteric Coated Tablet PO SCH (12:07)
[2023-09-20] MEDS: Sacubitril 24MG/Valsartan 26 MG TAB PO SCH (12:07)
[2023-09-20] MEDS: Carvedilol 25 MG TAB PO SCH (12:07)
[2023-09-20] MEDS: Amlodipine 5 MG TAB PO SCH (12:08)
[2023-09-20 14:05] LABS: HBsAg Index 0.73 S/CO (0-0.99); Hep B Surf Ag NONREACTIVE S/CO (NonReactive)
[2023-09-20 14:40] LABS: Hep C Index 6.29 S/CO (0-0.79)
[2023-09-20 14:44] LABS: HBSAB Concentration 24.42 mIU/mL; Hep B Core Total Ab REACTIVE (NonReactive); Hep B Core Total Index 5.52 S/CO (0-0.79); Hep B Surf AB REACTIVE (NonReactive); Hep C IgG Ab Reflex HepC Qnt S/CO (NonReactive)
[2023-09-20] MEDS: Gabapentin 100 MG CAP PO SCH (20:21)
[2023-09-20] MEDS: Atorvastatin Calcium 20 MG TAB PO SCH (20:21)
[2023-09-21 05:01] LABS: #Basophils Less than 0.03 10x3/uL (0.0-0.2); #Eosinphils Less than 0.03 10x3/uL (0.0-0.7); %Lymphocytes 15.7 % (21.0-51.0); %Monocytes 9.4 % (0.0-10.0); %Neutrophils 74.5 % (42.0-75.0); Hematocrit 29.6 % (36.0-47.0); Hemoglobin 9.4 g/dL (12.0-16.0); Mean Corpuscular HGB CONC 31.8 g/dL (32.0-36.0); Mean Corpuscular Hemoglobin 26.9 pg (27.0-31.0); Mean Corpuscular Volume 84.6 fL (78.0-98.0); Mean Platelet Volume 10.2 fL (7.4-10.4); Platelet Count 148 10x3/uL (130-400); RBC Distribution Width 18.6 % (11.5-14.5)
[2023-09-21 05:20] LABS: ALT (SGPT) 12 U/L (8-55); AST (SGOT) 16 U/L (5-34); Albumin 3.3 g/dL (3.4-4.8); Alkaline Phosphatase 114 U/L (40-110); Anion Gap 19 mmol/L (10-20); BUN (Urea Nitrogen) 45 mg/dL (9.8-20.1); Bilirubin, Total 0.4 mg/dL (0.2-1.2); Calc. Creatinine Clearance 6 mL/min (70-130); Calcium 9.4 mg/dL (7.8-10.44); Carbon Dioxide 27 mmol/L (23-31); Chloride 100 mmol/L (98-107); Estimated GFR 6; Globulin 3.8 g/dL (2.4-3.5); Glucose 115 mg/dL (83-110); Magnesium 2.3 mg/dL (1.6-2.6); Protein, Total 7.1 g/dL (5.8-8.1); Sodium 141 mmol/L (136-145)
[2023-09-21] MEDS ORDERED: Heparin 10,000 UNITS/ 10 ML VIAL ONE (08:56)
[2023-09-22 04:36] LABS: #Basophils Less than 0.03 10x3/uL (0.0-0.2); %Basophils 0.4 % (0.0-1.0); %Eosinophils 3.1 % (0.0-10.0); %Monocytes 10.3 % (0.0-10.0); %Neutrophils 53.2 % (42.0-75.0); Hematocrit 31.2 % (36.0-47.0); Hemoglobin 9.8 g/dL (12.0-16.0); Mean Corpuscular HGB CONC 31.4 g/dL (32.0-36.0); Mean Corpuscular Hemoglobin 25.9 pg (27.0-31.0); Mean Corpuscular Volume 82.5 fL (78.0-98.0); Mean Platelet Volume 9.7 fL (7.4-10.4); Platelet Count 146 10x3/uL (130-400); RBC Distribution Width 18.5 % (11.5-14.5); Red Blood Cell (RBC) Count 3.78 mill/uL (4.20-5.40)
[2023-09-22 05:12] LABS: Albumin 2.9 g/dL (3.4-4.8); Anion Gap 15 mmol/L (10-20); BUN (Urea Nitrogen) 26 mg/dL (9.8-20.1); BUN/Creatinine Ratio 7.05; Calc. Creatinine Clearance 10 mL/min (70-130); Calcium 8.9 mg/dL (7.8-10.44); Carbon Dioxide 28 mmol/L (23-31); Chloride 101 mmol/L (98-107); Estimated GFR 12; Glucose 87 mg/dL (83-110); Potassium 3.8 mmol/L (3.5-5.1); Sodium 140 mmol/L (136-145)
[2023-09-22] MEDS: Senokot S 8.6-50 MG TAB PO PRN (09:01)
[2023-09-23 06:21] LABS: #Basophils 0.03 10x3/uL (0.0-0.2); %Basophils 0.6 % (0.0-1.0); %Eosinophils 6.4 % (0.0-10.0); %Lymphocytes 31.8 % (21.0-51.0); %Monocytes 11.3 % (0.0-10.0); %Neutrophils 49.7 % (42.0-75.0); Hematocrit 32.8 % (36.0-47.0); Hemoglobin 10.4 g/dL (12.0-16.0); Mean Corpuscular HGB CONC 31.7 g/dL (32.0-36.0); Mean Corpuscular Hemoglobin 26.3 pg (27.0-31.0); Mean Corpuscular Volume 82.8 fL (78.0-98.0); Mean Platelet Volume 10.7 fL (7.4-10.4); Platelet Count 180 10x3/uL (130-400); RBC Distribution Width 18.5 % (11.5-14.5); Red Blood Cell (RBC) Count 3.96 mill/uL (4.20-5.40)
[2023-09-23 06:57] LABS: Anion Gap 19 mmol/L (10-20); BUN (Urea Nitrogen) 56 mg/dL (9.8-20.1); Calc. Creatinine Clearance 6 mL/min (70-130); Calcium 9.2 mg/dL (7.8-10.44); Carbon Dioxide 24 mmol/L (23-31); Chloride 103 mmol/L (98-107); Estimated GFR 6; Glucose 83 mg/dL (83-110); Potassium 4.2 mmol/L (3.5-5.1); Sodium 142 mmol/L (136-145)
[2023-09-23 12:36] VITALS: BP 138/70; TEMP 97.8
== END 2023-09-23 14:22 | disposition home or self-care (01) | DRG 640 ==
LOC: SUATTDRO 05:19 → ERS 05:19 → 2NO 09:42 → OBSVTOIN 09-21 16:07
PROVIDERS: ADMIT Internal Medicine; ATTEND Internal Medicine
DX: E87.70 Fluid overload, unspecified (principal); I50.23 Acute on chronic systolic (congestive) heart failure; N18.6 End stage renal disease; I13.2 Hypertensive heart and chronic kidney disease with heart failure and with stage 5 chronic kidney disease, or end stage renal disease; J45.901 Unspecified asthma with (acute) exacerbation; E88.09 Other disorders of plasma-protein metabolism, not elsewhere classified; G47.33 Obstructive sleep apnea (adult) (pediatric); J44.9 Chronic obstructive pulmonary disease, unspecified; E78.5 Hyperlipidemia, unspecified; Z99.2 Dependence on renal dialysis; D63.1 Anemia in chronic kidney disease; Z91.013 Allergy to seafood; Z88.8 Allergy status to other drugs, medicaments and biological substances; Z79.82 Long term (current) use of aspirin; Z79.899 Other long term (current) drug therapy
CPT/HCPCS: 36415; 71045; 80048; 80053; 80069; 83735; 83880; 85025; 86704; 86706; 86803; 87340; 93005; 94644; 94760; 96372; G0378; J1100; J1644; J7611; J7620